=== PATIENT | male | born 1950 | race Caucasian/White ===

== ENCOUNTER 2018-11-08 14:50 | Emergency (ER) | payer MEDICARE, OTHER ==
[2018-11-08] MEDS ORDERED: TORAdol 30 mg Injection IM ONE (15:20)
[2018-11-08 15:21] VITALS: PULSE 71; O2SAT 98
[2018-11-08] MEDS ORDERED: TORAdol 30 mg Injection ONE (15:25)
--- NOTE | 2018-11-08 15:38 | ERPHSYRPT ---
- History of Present Illness Time Seen by Provider: 11/08/18 14:53 Source: patient Exam Limitations: no limitations Patient Subjective Stated Complaint: fell last night on concrete while walking on crutches. states caught hand between concrete and upper left chest. now having pain to upper left chest. pain worse with movement and deep breathing. Triage Nursing Assessment: to room per w/c. skin w/d, color normal, resp easy. tender to touch left upper chest. no deformity noted. Physician History: tripped at home last pm; fell on left anterior side with fist under him; now pain when take deep breath or palpates; no head,neck, abdomen or extremity pain excep a little soreness left shoulder; no prior hx; no hemoptosis; feeling of sob because cant take a deep breath Occurred: yesterday (10 pm) Reason for Fall: tripped, fell from standing pos Injuries/Pain Location: chest (left anterior) Loss of Consciousness: no loss of consciousness Quality: aching, sharpness Severity of Pain-Max: severe Severity of Pain-Current: moderate Modifying Factors: Improves With: immobilization, movement Associated Symptoms (Fall): extremity injury (soreness left shoulder), No abdominal pain, No back pain, No neck pain, No vomiting, No vision changes Allergies/Adverse Reactions: No Known Drug Allergies Allergy (Verified 11/08/18 15:06) Home Medications: Buprenorphine HCl [Belbuca] 75 mcg SL UD 11/08/18 [History] Finasteride 5 mg PO DAILY 11/08/18 [History] Fluoxetine HCl 40 mg PO DAILY 11/08/18 [History] Hydrocodone/Acetaminophen [Hydrocodone-Acetamin 7.5-325] 7.5 mg PO TID 11/08/18 [History] Tamsulosin HCl 0.4 mg PO DAILY 11/08/18 [History] Temazepam 30 mg PO HS 11/08/18 [History] Hx Tetanus, Diphtheria Vaccination/Date Given: No Hx Influenza Vaccination/Date Given: Yes Hx Pneumococcal Vaccination/Date Given: Yes - Review of Systems Constitutional: No Symptoms Eyes: No Symptoms Ears, Nose, & Throat: No Symptoms Respiratory: No Cough, No Cyanosis, No Dyspnea Cardiac: Chest Pain (when breaths), No Edema, No Syncope, No Orthopnea Abdominal/Gastrointestinal: No Abdominal Pain, No Nausea, No Vomiting, No Diarrhea Genitourinary Symptoms: No Dysuria, No Frequency, No Hematuria, No Hesitancy Musculoskeletal: Fall, Injury (left anterior chest) Skin: No Symptoms Neurological: No Symptoms Psychological: No Symptoms Endocrine: No Symptoms Hematologic/Lymphatic: No Symptoms Immunological/Allergic: No Symptoms - Past Medical History Pertinent Past Medical History: Yes Neurological History: Peripheral Neuropathy ENT History: No Pertinent History Cardiac History: No Pertinent History Respiratory History: No Pertinent History Endocrine Medical History: No Pertinent History Musculoskeletal History: Fractures, Arthritis GI Medical History: Hemorrhoids History: No Pertinent History Psycho-Social History: No Pertinent History Male Reproductive Disorders: Prostate Problems Other Medical History: L -SPINE SURGERY X 5 W/ L-SPINE FUSION. PT. HAS HAD R KNEE PN WELL - Past Surgical History Past Surgical History: Yes Neuro Surgical History: No Pertinent History Cardiac: No Pertinent History Respiratory: No Pertinent History Gastrointestinal: No Pertinent History Genitourinary: No Pertinent History Musculoskeletal: Orthopedic Surgery, Joint Replacement Male Surgical History: No Pertinent History Other Surgical History: GASTRIC BYPASS x 2 , shoulder surgery x 2 1991 and 1994 , left knee replaced and rt hip. lower back surgery 1994, left carpel tunnel sugery 1989 R ankle surgery x3 7 1965 and 1968 - Social History Smoking Status: Current every day smoker How long have you smoked: 30 Exposure to second hand smoke: No Alcohol Use: None Drug Use: marijuana Patient Lives Alone: No Significant Family History: no pertinent family hx - Female History Hx Now: No - Nursing Vital Signs Nursing Vital Signs: Initial Vital Signs Temperature 98.2 F 11/08/18 14:59 Pulse Rate 71 11/08/18 14:59 Respiratory Rate 16 11/08/18 14:59 Blood Pressure 145/70 11/08/18 14:59 O2 Sat by Pulse Oximetry 98 11/08/18 14:59 Pain Scale Pain Intensity 7 - [place]t Coma Score Best Eye Response ([place]): (4) open spontaneously Best Verbal Response ([place]): (5) oriented Best Motor Response ([place]): (6) obeys commands [place] Total: 15 - Physical Exam General Appearance: mild distress, alert, thin Head Injury: no evidence of injury, No Graham's Sign, No contusions, No ecchymosis, No tenderness Eye Exam: PERRL/EOMI, eyes nml inspection ENT Exam: airway nml, nml ext.inspection, hearing grossly normal, No dental injury, No hemotympanum, No clotted nasal blood, No malocclusion Neck Exam: supple, trachea midline, full range of motion, normal inspection, No stiff neck, No tenderness, No JVD, No subcutaneous emphysema Respiratory/Chest Exam: chest tenderness (left anterior mid), normal breath sounds, decreased breath sounds (left side), rib tenderness (left anterior and post mid), splinting (left), No respiratory distress, No ecchymosis, No crepitus , No rales, No rhonchi, No wheezing, No subcutaneous emphysema, No palpable fracture, No paradoxical movements Cardiovascular Exam: normal heart sounds, regular rate/rhythm, normal peripheral pulses, No murmur, No edema, No JVD Gastrointestinal Exam: soft, normal bowel sounds, No tenderness, No guarding, No organomegaly Rectal Exam: deferred Back Exam: normal inspection, normal range of motion, No CVA tenderness, No vertebral tenderness, No rash Extremity Exam: normal inspection, normal range of motion, capillary refill <3 sec, pelvis stable, No evidence of injury, No hip tenderness Peripheral Pulses: carotid (R): 4+, carotid (L): 4+, femoral (R): 4+, femoral (L ): 4+, dorsalis-pedis (R): 3+, dorsalis-pedis (L): 3+ Neurologic Exam: alert, oriented x 3, cooperative, cylinder inspector II-XII nml as tested, normal mood/affect, nml station & gait (for patient), sensation nml Skin Exam: normal color, warm, dry, No rash, No cyanosis SpO2 Interpretation: normal SpO2: 98 O2 Delivery: Room Air - Course Nursing assessment & vital signs reviewed: Yes - Radiology Exams Chest X-ray Interpretation: Interpreted by me, No Fracture, No Pneumonia, No Pneumothorax, Nml Heart Size, Other (aging chesy) Left Ribs X-ray Interpretation: Interpreted by me, Non-displaced Fracture (? 9th rib left) Ordered Tests: Active Orders 24 hr Category Date Time Status Cold Application STAT Care 11/08/18 15:22 Active Pulse Oximetry (ED) STAT Care 11/08/18 15:23 Active CHEST 1 VIEW (PORTABLE) Stat Exams 11/08/18 15:45 Taken RIBS UNILATERAL Stat Exams 11/08/18 15:21 Taken Medication Summary Discontinued Medications Generic Name Dose Route Start Last Admin Trade Name Abhijit PRN Reason Stop Dose Admin Ketorolac Tromethamine 15 mg 11/08/18 15:20 11/08/18 15:29 Toradol 30 Mg Injection IM 11/08/18 15:21 15 mg STAT ONE Administration Ketorolac Tromethamine Confirm 11/08/18 15:25 Toradol 30 Mg Injection Administered 11/08/18 15:26 Dose 30 mg .ROUTE .STK-MED ONE - Progress Progress: improved (after neds'), re-examined (after meds and xr) Progress Note: 11/08/18 15:40 will medicate ; get sr and recheck 11/08/18 16:02 recheck post xr; pain meds helped; discussed xr findings; will follow up lmd; instructions given Counseled pt/family regarding: diagnosis, need for follow-up, rad results - Departure Time of Disposition: 16:02 Departure Disposition: Home Clinical Impression: nondisplaced fracture left 9th rib, Fall Condition: Stable Critical Care Time: No Referrals: TITA CANALES [Primary Care Provider] - Instructions: Contusion (DC), Preventing Falls, Rib Fractures in Adults Additional Instructions: rest; ice; continue home meds; may add aleve otc Follow-up with family doctor as directed. Call for appointment. Return if any problems. If you smoke please stop. Call or follow up with your family doctor for assistance if you need it to stop. Please wear your seatbelt when driving. Have a nice day. Thank you for allowing us to participate in your care today. :o) Dr Osei Henriquez
[2018-11-08 16:14] VITALS: BP 136/86
--- NOTE | 2018-11-08 16:16 | XRAY ---
Indication: Left upper rib pain following fall. Comparison: None 2 views of the left ribs demonstrates mild osteopenia, moderate left shoulder degenerative arthropathy, left humeral orthopedic tacks, distal left clavicle resection, left axilla calcified node, moderate multilevel degenerative spondylosis, partially visualized multilevel lumbar fusion/laminectomy, and epigastric suture material. No other bony, articular, or soft tissue abnormalities. Impression: Nonacute left ribs with chronic features.
--- NOTE | 2018-11-08 16:18 | XRAY ---
Indication: Left upper rib pain following fall. Comparison: May 27, 2017. Portable chest again demonstrates normal heart and lungs. Bony thorax intact again with osteopenia, degenerative changes, bilateral shoulder surgery, and partially visualized lumbar surgery. Impression: Stable nonacute chest with chronic findings.
== END 2018-11-08 16:14 | disposition home or self-care (01) ==
LOC: ED 14:50
DX: S22.32XA Fracture of one rib, left side, initial encounter for closed fracture (principal); W18.30XA Fall on same level, unspecified, initial encounter; R07.89 Other chest pain; Z79.899 Other long term (current) drug therapy
CPT/HCPCS: 71045; 71100; 96372; 99284; J1885

== ENCOUNTER 2021-05-14 08:57 | Emergency (ER) | payer MEDICARE ==
[2021-05-14 09:13] VITALS: O2SAT 100
--- NOTE | 2021-05-14 09:57 | ERPHSYRPT ---
- History of Present Illness Time Seen by Provider: 05/14/21 09:15 Source: patient Exam Limitations: no limitations Patient Subjective Stated Complaint: " I've not been able to poop for 4 days and my stomach and rectum really hurt, especially when I try to have a bowel mov ement". Triage Nursing Assessment: Pt presents to ER with spouse, wheeled to ER Room 6 by nursing staff. Pt appears in pain, complains of pain 5/10 scale in lower abdomen diffused and in rectum r/t constipation. Pt is alert and oriented x 3. States is 2 weeks post op from CABG, denies narcotic use. States is on some "meds" but unsure which ones or what dose, states thinks he's on a blood thinner. Respirations are slightly labored, appears anxious. Lung sounds clear and equal throughout. Abdomen is soft but tender upon exam. Active bowel sounds noted. Post OP incisions appear to be healing appropriately. Denies nausea/vomiting, states feels light headed. Pt denies chest pain. States is cold and having chills, no fever noted upon triage. Pt given a warm blanket for c omfort measures. Physician History: Patient is a 71-year-old male 3 weeks postop CABG x 2 vessels presents to our ED with complaints of diffuse abdominal pain extending into his rectum. Patient has not had a bowel movement in 4 days. Patient believes he is constipated. P atient also complains of shortness of breath. He is mildly lightheaded as well. No chest pain. Patient denies narcotic use. However patient is unsure of his home meds. Patient states he is on a blood thinner but does not know which at this time. Shortness of breath is constant. Patient appears anxious on exam. Patient surgical sites are well-healed. Symptoms are mild to moderate in intens ity. No specific worsening or improving factors. Patient denies trauma. No fever. No nausea or vomiting. Patient voices no other complaints concerns at this time. Timing/Duration: day(s) (4 days) Severity: moderate Modifying Factors: Improves With: nothing Associated Symptoms: shortness of breath, No chest pain, No fever, No loss of appetite Allergies/Adverse Reactions: No Known Drug Allergies Allergy (Verified 05/14/21 09:14) Home Medications: Buprenorphine HCl [Belbuca] 75 mcg SL UD 11/08/18 [History] Finasteride 5 mg PO DAILY 11/08/18 [History] Fluoxetine HCl 40 mg PO DAILY 11/08/18 [History] Hydrocodone/Acetaminophen [Hydrocodone-Acetamin 7.5-325] 7.5 mg PO TID 11/08/18 [History] Tamsulosin HCl 0.4 mg PO DAILY 11/08/18 [History] Temazepam 30 mg PO HS 11/08/18 [History] Hx Tetanus, Diphtheria Vaccination/Date Given: Yes Hx Influenza Vaccination/Date Given: Yes Hx Pneumococcal Vaccination/Date Given: Yes Immunizations Up to Date: Yes Travel Risk - International Travel Have you traveled outside of the country in past 3 weeks: No - Coronavirus Screening Are you exhibiting any of the following symptoms?: No Close contact with a COVID-19 positive Pt in past 14-21 Days: No - Vaccine Status Have you recieved a Covid-19 vaccination: Yes L[employer] 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 - Vaccination Dates Date of 2cond Vaccination (if applicable): January 2021 - Review of Systems Constitutional: No Symptoms, No Fever, No Chills Eyes: No Symptoms Ears, Nose, & Throat: No Symptoms Respiratory: No Symptoms, No Cough, No Dyspnea Cardiac: No Symptoms, No Chest Pain, No Edema, No Syncope Abdominal/Gastrointestinal: No Symptoms, No Abdominal Pain, No Nausea, No Vomiting, No Diarrhea Genitourinary Symptoms: No Symptoms, No Dysuria Musculoskeletal: No Symptoms, No Back Pain, No Neck Pain Skin: No Symptoms, No Rash Neurological: No Symptoms, No Dizziness, No Focal Weakness, No Sensory Changes Psychological: No Symptoms Endocrine: No Symptoms Hematologic/Lymphatic: No Symptoms Immunological/Allergic: No Symptoms All Other Systems: Reviewed and Negative - Past Medical History Pertinent Past Medical History: Yes Neurological History: Paralysis, Peripheral Neuropathy ENT History: No Pertinent History Cardiac History: Coronary Artery Disease, High Cholesterol, Hypertension Respiratory History: Other Endocrine Medical History: No Pertinent History Musculoskeletal History: Arthritis, Degenerative Disk Disease GI Medical History: Hemorrhoids History: No Pertinent History Psycho-Social History: No Pertinent History Male Reproductive Disorders: Prostate Problems Other Medical History: O.A TO BILATERAL SHOULERS, KNEES, BACK, NECK - Past Surgical History Past Surgical History: Yes Neuro Surgical History: No Pertinent History Cardiac: CABG Respiratory: No Pertinent History Gastrointestinal: No Pertinent History Genitourinary: No Pertinent History Musculoskeletal: Orthopedic Surgery, Joint Replacement Male Surgical History: No Pertinent History Other Surgical History: GASTRIC BYPASS x 2 , shoulder surgery x 2 1991 and 1994, left knee replaced and rt hip. lower back surgery 1994, left carpel tunnel sugery 1989 R ankle surgery x3 7 1965 and 1968 - Social History Smoking Status: Former smoker How long have you smoked: 30 Exposure to second hand smoke: No Alcohol Use: None Drug Use: marijuana Patient Lives Alone: No Significant Family History: no pertinent family hx - Nursing Vital Signs Nursing Vital Signs: Initial Vital Signs Temperature 98.4 F 05/14/21 09:06 Pulse Rate 118 H 05/14/21 09:06 Respiratory Rate 24 05/14/21 09:06 Blood Pressure 101/79 05/14/21 09:06 O2 Sat by Pulse Oximetry 100 05/14/21 09:06 Pain Scale Pain Intensity 4 - Physical Exam General Appearance: alert, other (Patient sitting up in bed he is conversant mildly tachypneic. No acute distress.) Eye Exam: PERRL/EOMI, eyes nml inspection Ears, Nose, Throat Exam: normal ENT inspection, TMs normal, pharynx normal, moist mucous membranes, other (Mildly dry oral mucous membranes.) Neck Exam: normal inspection, non-tender, supple, full range of motion Respiratory Exam: normal breath sounds, lungs clear, No respiratory distress Cardiovascular Exam: regular rate/rhythm, normal heart sounds, normal peripheral pulses Gastrointestinal/Abdomen Exam: soft, normal bowel sounds, No tenderness, No mass Back Exam: normal inspection, normal range of motion, No CVA tenderness, No vertebral tenderness Extremity Exam: normal inspection, normal range of motion, pelvis stable Neurologic Exam: alert, oriented x 3, cooperative, normal mood/affect, sensation nml, No motor deficits Skin Exam: normal color, warm, dry, No rash Lymphatic Exam: No adenopathy SpO2 Interpretation: normal SpO2: 100 O2 Delivery: Room Air - Course Nursing assessment & vital signs reviewed: Yes EKG Interpreted by Me: RATE (96), Sinus Rhythm, NORMAL AXIS (T wave Inversion inferiorly and laterally.), NORMAL INTERVALS - Radiology Exams Chest X-ray Interpretation: Teleradiologist Report (Portable chest again hyperinflated and clear. Heart not enlarged with interval CABG surgery. Bony thorax intact again with osteopenia and mild degenerative changes, bilateral shoulder surgery.) - CT Exams Chest CT Interpretation: Tele-radiologist Report (Continue negative pulmonary embolus. No acute cardiopulmonary abnormalities. Incidental CABG surgery, scattered fibrosis/scarring and chronic bony findings.) Abdomen/Pelvis CT Interpretation: Tele-radiologist Report (Name artifact from multiple spinal fusion hardware and right hip arthroplasty. Mild rectal impaction. Scattered arteriosclerotic disease with 3.5 x 3.5 cm distal AAA. Incidental chronic bony findings.) Ordered Tests: Active Orders 24 hr Category Date Time Status [employer] Instructor STAT Care 05/14/21 09:20 Active EKG-ER Only STAT Care 05/14/21 09:20 Active Enema STAT Care 05/14/21 13:06 Active IV Insertion STAT Care 05/14/21 09:20 Active Pulse Oximetry (ED) STAT Care 05/14/21 09:20 Active ABDOMEN AND PELVIS W CONTRAST [CT] Stat Exams 05/14/21 09:22 Completed CHEST 1 VIEW (PORTABLE) Stat Exams 05/14/21 09:26 Completed CHEST WITH CONTRAST [CT] Stat Exams 05/14/21 10:11 Completed CBC W DIFF Stat Lab 05/14/21 09:40 Completed CMP Stat Lab 05/14/21 09:40 Completed D-DIMER QUANTITATIVE Stat Lab 05/14/21 09:40 Completed TROPONIN Q3H Lab 05/14/21 09:40 Completed TROPONIN Q3H Lab 05/14/21 12:13 Completed TROPONIN Q3H Lab 05/14/21 15:30 Ordered TROPONIN Q3H Lab 05/14/21 18:30 Ordered TROPONIN Q3H Lab 05/14/21 21:30 Ordered UA W/RFX UR CULTURE Stat Lab 05/14/21 09:20 Ordered Lab/Rad Data: Laboratory Result Diagrams 05/14/21 09:40 05/14/21 09:40 Laboratory Results 05/14/21 05/14/21 05/14/21 Range/Units 12:13 09:40 09:40 WBC (4.0-10.5) K/mm3 RBC (4.1-5.6) M/mm3 Hgb (12.5-18.0) gm/dl Hct (42-50) % MCV (78-100) fl MCH (26-32) pg MCHC (32-36) g/dl RDW (11.5-14.0) % Plt Count (150-450) K/mm3 MPV (7.5-11.0) fl Gran % (36.0-66.0) % Eos # (Auto) (0-0.5) Absolute Lymphs (auto) (1.0-4.6) Absolute Monos (auto) (0.0-1.3) Lymphocytes % (24.0-44.0) % Monocytes % (0.0-12.0) % Eosinophils % (0.00-5.0) % Basophils % (0.0-0.4) % Absolute Granulocytes (1.4-6.9) Basophils # (0-0.4) D-Dimer 3256 H* (215-500) ng/mL Sodium (137-145) mmol/L Potassium (3.5-5.1) mmol/L Chloride (98-107) mmol/L Carbon Dioxide (22-30) mmol/L Anion Gap (5-15) MEQ/L BUN (9-20) mg/dL Creatinine (0.66-1.25) mg/dL Estimated GFR ML/MIN Glucose (74-106) mg/dL Calcium (8.4-10.2) mg/dL Total Bilirubin (0.2-1.3) mg/dL AST (17-59) U/L ALT (0-50) U/L Alkaline Phosphatase (38-126) U/L Troponin I 0.014 0.016 (0.000-0.034) ng/mL Serum Total Protein (6.3-8.2) g/dL Albumin (3.5-5.0) g/dL 05/14/21 05/14/21 Range/Units 09:40 09:40 WBC 7.9 (4.0-10.5) K/mm3 RBC 3.83 L (4.1-5.6) M/mm3 Hgb 12.5 (12.5-18.0) gm/dl Hct 39.2 L (42-50) % MCV 102.3 H (78-100) fl MCH 32.6 H (26-32) pg MCHC 31.9 L (32-36) g/dl RDW 15.4 H (11.5-14.0) % Plt Count 341 (150-450) K/mm3 MPV 10.0 (7.5-11.0) fl Gran % 72.4 H (36.0-66.0) % Eos # (Auto) 0.14 (0-0.5) Absolute Lymphs (auto) 1.29 (1.0-4.6) Absolute Monos (auto) 0.71 (0.0-1.3) Lymphocytes % 16.4 L (24.0-44.0) % Monocytes % 9.0 (0.0-12.0) % Eosinophils % 1.8 (0.00-5.0) % Basophils % 0.4 (0.0-0.4) % Absolute Granulocytes 5.71 (1.4-6.9) Basophils # 0.03 (0-0.4) D-Dimer (215-500) ng/mL Sodium 140 (137-145) mmol/L Potassium 4.4 (3.5-5.1) mmol/L Chloride 105 (98-107) mmol/L Carbon Dioxide 23 (22-30) mmol/L Anion Gap 16.8 H (5-15) MEQ/L BUN 13 (9-20) mg/dL Creatinine 0.93 (0.66-1.25) mg/dL Estimated GFR > 60.0 ML/MIN Glucose 93 (74-106) mg/dL Calcium 9.1 (8.4-10.2) mg/dL Total Bilirubin 0.90 (0.2-1.3) mg/dL AST 32 (17-59) U/L ALT 15 (0-50) U/L Alkaline Phosphatase 140 H (38-126) U/L Troponin I (0.000-0.034) ng/mL Serum Total Protein 6.6 (6.3-8.2) g/dL Albumin 3.7 (3.5-5.0) g/dL - Progress Progress: improved Progress Note: CT scan reveals rectal impaction. Staff disimpacted patient. Patient had a large bowel movement. Patient significantly improved symptomatically. There was an incidental 3.5 x 3.5 cm AAA observed. We contacted Dr. Sánchez of general surgery who feels patient is safe for discharge. Patient will follow up with general surgery as an outpatient to further assess the AAA observed today. Plan of care discussed with patient. Patient agrees to follow-up as discussed. He will follow up with Looking at his primary care doctor within 48 hours. Patient voices no other complaints concerns at this time. 05/14/21 13:21 Discussed with : Karin Will see patient in: office Counseled pt/family regarding: lab results, diagnosis, need for follow-up, rad results - Departure Departure Disposition: Home Clinical Impression: Osteopenia, Arthritis of spine, Fecal impaction in rectum, AAA (abdominal aortic aneurysm), Hip arthritis Condition: Stable Critical Care Time: No Referrals: MICHELLE ESPINAL [Primary Care Provider] - Additional Instructions: Discharge/Care Plan KAM LUU was seen on 05/14/21 in the Emergency Room. The patient was counseled regarding Diagnosis,Lab results, Imaging studies, need for follow up and when to return to the Emergency Room. Prescriptions given: Discharge Note I have spoken with the patient and/or caregivers. I have explained the patient's condition, diagnosis and treatment plan based on the information available to me at this time. I have answered the patient's and/or caregiver's questions and addressed any concerns. The patient and/or caregivers have as good understanding of the patient's diagnosis, condition and treatment plan as can be expected at this point. The vital signs have been stable. The patient's condition is stable and appropriate for discharge from the emergency department. The patient will pursue further outpatient evaluation with the primary care physician or other designated or consulting physician as outlined in the discharge instructions. The patient and/or caregivers are agreeable to this plan of care and follow-up instructions have been explained in detail. The patient and/or caregivers have received these instruction. The patient/and or caregivers are aware that any significant change in condition or worsening of symptoms should prompt an immediate return to this or the closest emergency department or call 911.
[2021-05-14 09:59] LABS: ALBUMIN 3.7 g/dL (3.5-5.0); ALKALINE PHOSPHATASE 140 U/L (38-126); ANION GAP 16.8 MEQ/L (5-15); BLOOD UREA NITROGEN 13 mg/dL (9-20); CHLORIDE 105 mmol/L (98-107); Calcium 9.1 mg/dL (8.4-10.2); Carbon Dioxide 23 mmol/L (22-30); Creatinine 1 0.93 mg/dL (0.66-1.25); EST GLOMERULAR FILTRATION RATE > 60.0 ML/MIN; Glucose 93 mg/dL (74-106); Potassium 4.4 mmol/L (3.5-5.1); SGOT/AST 32 U/L (17-59); SGPT/ALT 15 U/L (0-50); SODIUM 140 mmol/L (137-145); Total Protein 6.6 g/dL (6.3-8.2)
[2021-05-14 10:06] VITALS: BP 131/74
[2021-05-14 10:12] LABS: Absolute Neutrophil Ct (ANC) 5.71 (1.4-6.9); BASOPHIL % 0.4 % (0.0-0.4); Basophil (Absolute #) 0.03 (0-0.4); Eosinophil % 1.8 % (0.00-5.0); Eosinophil (Absolute #) 0.14 (0-0.5); Hematocrit 39.2 % (42-50); Hemoglobin 12.5 gm/dl (12.5-18.0); Lymphocyte (Absolute #) 1.29 (1.0-4.6); Lymphocytes % 16.4 % (24.0-44.0); Mean Cell Volume 102.3 fl (78-100); Mean Corpuscular Hemoglobin 32.6 pg (26-32); Mean Corpuscular Hgb Concent. 31.9 g/dl (32-36); Monocyte (Absolute #) 0.71 (0.0-1.3); Neutrophil % 72.4 % (36.0-66.0); Platelet Count 341 K/mm3 (150-450); Red Blood Count 3.83 M/mm3 (4.1-5.6); Red Cell Distribution Width 15.4 % (11.5-14.0); White Blood Count 7.9 K/mm3 (4.0-10.5)
--- NOTE | 2021-05-14 10:26 | XRAY ---
Indication: Short of breath. Comparison: March 11, 2020. Portable chest again hyperinflated and clear. Heart not enlarged with interval CABG surgery. Bony thorax intact again with osteopenia, mild degenerative changes, and bilateral shoulder surgery. Impression: Nonacute hyperinflated chest with chronic features.
[2021-05-14 11:15] VITALS: PULSE 86
--- NOTE | 2021-05-14 11:57 | XRAY ---
Indication: Elevated d-dimer. Constipation. Multiple contiguous axial images obtained through the chest using 100 cc Isovue 370 contrast and PE protocol. Comparison: September 13, 2013. There is good opacification of the pulmonary arteries to include the lobar and segmental branches. No pulmonary embolus. Heart not enlarged with interval CABG surgery. Aorta minimally arteriosclerotic without aneurysm/dissection. No pathologic mediastinal/hilar lymphadenopathy. Lungs hyperinflated with minimal peripheral fibrosis/scarring bilaterally. No suspicious pulmonary mass, infiltrate, or effusion. Bony thorax intact with again moderate degenerative changes throughout the spine, mild osteopenia, and bilateral shoulder surgery. New sternotomy wires and incompletely visualized thoracolumbar fusion hardware. CT abdomen/pelvis reported separately. Impression: 1. Continue negative pulmonary embolus. No acute cardiopulmonary abnormalities. 2. Incidental CABG surgery, scattered fibrosis/scarring, and chronic bony findings.
--- NOTE | 2021-05-14 12:03 | XRAY ---
Indication: Elevated d-dimer. Constipation. Multiple contiguous axial images obtained through the abdomen and pelvis using 100 cc Isovue 370 contrast. Comparison: None CT chest reported separately. L1-S1 anterior/posterior fusion hardware and right total hip arthroplasty produces extreme beam artifact limiting exam. There has been gastric bypass surgery. Noncontrasted stomach and bowel loops appear grossly nonobstructed with mild fecal debris in the descending/sigmoid colon and mild rectal impaction. Normal appendix. No free fluid/air. Remaining liver, gallbladder, pancreas, spleen, adrenal glands, kidneys, ureters, and bladder are grossly unremarkable. Moderate scattered aortoiliac calcifications with distal AAA measuring 3.5 x 3.5 cm. No pathologic retroperitoneal lymphadenopathy. Remaining osseous structures demonstrates mild osteopenia, mild/moderate degenerative changes throughout the thoracolumbar spine, and mild left hip degenerative arthropathy. No ventral or inguinal hernias. Impression: 1. Beam artifact from multiple spinal fusion hardware and right hip arthroplasty. 2. Mild rectal impaction. 3. Scattered arteriosclerotic disease with 3.5 x 3.5 cm distal AAA. 4. Incidental chronic bony findings.
== END 2021-05-14 13:52 | disposition home or self-care (01) ==
LOC: ED 08:57
DX: M85.80 Other specified disorders of bone density and structure, unspecified site (principal); M47.9 Spondylosis, unspecified; K56.41 Fecal impaction; I71.4 Abdominal aortic aneurysm, without rupture; M13.859 Other specified arthritis, unspecified hip
CPT/HCPCS: 36000; 36415; 71045; 71260; 74177; 80053; 84484; 85025; 85379; 93005; 93041; 94760; 99284

== ENCOUNTER 2021-06-21 19:21 | Emergency (ER) | payer MEDICARE ==
[2021-06-21 20:51] VITALS: BP 141/79; PULSE 61; O2SAT 95
[2021-06-21] MEDS ORDERED: XYLOCAINE 1%/Epi 1:100000 MDV 20 ML ONE (21:06)
[2021-06-21] MEDS ORDERED: XYLOCAINE 1%/Epi 1:100000 MDV 20 ML IJ ONE (21:09)
[2021-06-21] MEDS ORDERED: BACIGUENT PACKET TP ONE (21:25)
[2021-06-21] MEDS ORDERED: BACIGUENT PACKET ONE (21:29)
--- NOTE | 2021-06-21 21:31 | ERPHSYRPT ---
- History of Present Illness Time Seen by Provider: 06/21/21 19:37 Source: patient, EMS Exam Limitations: no limitations Patient Subjective Stated Complaint: pt states he got tripped with his crutches and fell forward. hit his head, denies loss of consciousness. Triage Nursing Assessment: pt alert and oriented, answers questions approp. pt arrive per ambulance and transfers to [facility] with assist of 2. respirations nonlabored. skin warm and dry. abrasion to lt elbow, skin tear to rt forearm. laceration approx 2cm with no acitve bleeding at this time. abrasions and bruising to bilat knees. Physician History: 71 years old male with multiple medical problems including CABG recently and currently on Eliquis, walks with crutches, tripped and fell on the floor and hit his forehead causing laceration and contusion of right knee and skin tear right forearm. Occurred: just prior to arrival Reason for Fall: lost balance, tripped Injuries/Pain Location: face, upper extremity, lower extremity Loss of Consciousness: no loss of consciousness Quality: dullness Severity of Pain-Max: mild Severity of Pain-Current: mild Modifying Factors: Improves With: nothing Associated Symptoms (Fall): extremity injury Allergies/Adverse Reactions: No Known Drug Allergies Allergy (Verified 06/21/21 20:04) Home Medications: Tamsulosin HCl 0.4 mg PO BID 11/08/18 [History] Temazepam 30 mg PO HS 11/08/18 [History] Apixaban [Eliquis] 5 mg PO BID 06/21/21 [History] Duloxetine HCl 60 mg PO DAILY 06/21/21 [History] Duloxetine HCl 30 mg [Cymbalta 30 MG Capsule] 30 mg PO HS 06/21/21 [History] Oxybutynin Chloride [Oxybutynin Chloride ER] 5 mg PO TID 06/21/21 [History] Tramadol HCl 200 mg PO BID 06/21/21 [History] Hx Tetanus, Diphtheria Vaccination/Date Given: Yes Hx Influenza Vaccination/Date Given: Yes Hx Pneumococcal Vaccination/Date Given: Yes Immunizations Up to Date: Yes Travel Risk - International Travel Have you traveled outside of the country in past 3 weeks: No - Coronavirus Screening Are you exhibiting any of the following symptoms?: No Close contact with a COVID-19 positive Pt in past 14-21 Days: No - Vaccine Status Have you recieved a Covid-19 vaccination: Yes 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 - Vaccination Dates Date of 2cond Vaccination (if applicable): january 2021 - Review of Systems Constitutional: No Symptoms Eyes: No Symptoms Ears, Nose, & Throat: No Symptoms Respiratory: No Symptoms Cardiac: No Symptoms Abdominal/Gastrointestinal: No Symptoms Genitourinary Symptoms: No Symptoms Musculoskeletal: Fall, Injury Skin: Skin Lesions Neurological: Headache Psychological: No Symptoms Endocrine: No Symptoms Hematologic/Lymphatic: Easy Bleeding Immunological/Allergic: No Symptoms - Past Medical History Pertinent Past Medical History: Yes Neurological History: Paralysis, Peripheral Neuropathy ENT History: No Pertinent History Cardiac History: Coronary Artery Disease, High Cholesterol, Hypertension Respiratory History: Other Endocrine Medical History: No Pertinent History Musculoskeletal History: Arthritis, Degenerative Disk Disease GI Medical History: Hemorrhoids History: No Pertinent History Psycho-Social History: No Pertinent History Male Reproductive Disorders: Prostate Problems Other Medical History: O.A TO BILATERAL SHOULERS, KNEES, BACK, NECK - Past Surgical History Past Surgical History: Yes Neuro Surgical History: No Pertinent History Cardiac: CABG Respiratory: No Pertinent History Gastrointestinal: No Pertinent History Genitourinary: No Pertinent History Musculoskeletal: Orthopedic Surgery, Joint Replacement Male Surgical History: No Pertinent History Other Surgical History: GASTRIC BYPASS x 2 , shoulder surgery x 2 1991 and 1994, left knee replaced and rt hip. lower back surgery 1994, left carpel tunnel sugery 1989 R ankle surgery x3 7 1965 and 1968 - Social History Smoking Status: Former smoker How long have you smoked: 30 Exposure to second hand smoke: No Alcohol Use: None Drug Use: marijuana Patient Lives Alone: No Significant Family History: no pertinent family hx - Nursing Vital Signs Nursing Vital Signs: Initial Vital Signs Temperature 97.3 F 06/21/21 19:40 Pulse Rate 80 06/21/21 19:40 Respiratory Rate 16 06/21/21 19:40 Blood Pressure 109/68 06/21/21 19:40 O2 Sat by Pulse Oximetry 97 06/21/21 19:40 Pain Scale Pain Intensity 0 - Dodge Coma Score Best Eye Response (Colt): (4) open spontaneously Best Verbal Response (Colt): (5) oriented Best Motor Response (Colt): (6) obeys commands Colt Total: 15 - Physical Exam General Appearance: no apparent distress, alert Head Injury: lacerations (2.5 cm laceration above left eyebrow linear. Not skull deep. Minimal oozing. Swelling around laceration with hematoma. No step in deformity.), swelling, No Graham's Sign, No raccoon eyes Eye Exam: PERRL/EOMI, eyes nml inspection ENT Exam: airway nml, evidence of ENT injury, nml ext.inspection Neck Exam: supple, trachea midline, full range of motion, normal alignment, normal inspection, No focal neuro deficit Respiratory/Chest Exam: normal breath sounds, respiratory distress, No chest tenderness Cardiovascular Exam: normal heart sounds, regular rate/rhythm Gastrointestinal Exam: soft, normal bowel sounds, No tenderness Back Exam: normal inspection Extremity Exam: other (Contusion right knee with no significant bony tenderness and intact range of motion. 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 as tested, normal mood/affect, nml cerebellar function, sensation nml, No motor deficits Skin Exam: normal color SpO2 Interpretation: normal SpO2: 95 O2 Delivery: Room Air Procedures - Laceration/Wound Repair Left Anterior Frontal Time of Procedure: 21:08 Wound Location: Left, forehead Wound Length (cm): 2.5 Wound's Depth, Shape: superficial, into muscle Wound Explored: clean Irrigated: Yes Hibiclens Prep: Yes Anesthesia: 1% lidocaine w/ Epi Volume Anesthetic (ccs): 3 Wound Repaired With: sutures Suture Size/Type: 5-0 Number of Sutures: 5 Layer Closure?: No Sterile Dressing Applied?: Yes Ordered Tests: Active Orders 24 hr Category Date Time Status Prepare for Sutures STAT Care 06/21/21 21:09 Completed Sutures STAT Care 06/21/21 21:09 Completed Wound Care STAT Care 06/21/21 21:09 Completed CERVICAL SPINE WO CONTRAST [CT] Stat Exams 06/21/21 19:37 Taken HEAD WITHOUT CONTRAST [CT] Stat Exams 06/21/21 19:37 Taken Medication Summary Discontinued Medications Generic Name Dose Route Start Last Admin Trade Name Freq PRN Reason Stop Dose Admin Bacitracin Zinc 0.9 gm 06/21/21 21:25 06/21/21 21:30 Baciguent Packet TP 06/21/21 21:26 0.9 gm STAT ONE Administration Bacitracin Zinc Confirm 06/21/21 21:29 Baciguent Packet Administered 06/21/21 21:30 Dose 1 gm .ROUTE .STK-MED ONE Lidocaine/Epinephrine Confirm 06/21/21 21:06 Xylocaine 1%/Epi 1:[id number] Mdv 20 Ml Administered 06/21/21 21:07 Dose 5 ml .ROUTE .STK-MED ONE Lidocaine/Epinephrine 5 ml 06/21/21 21:09 06/21/21 21:12 Xylocaine 1%/Epi 1:[id number] Mdv 20 Ml IJ 06/21/21 21:10 5 ml STAT ONE Administration - Progress Progress: improved Progress Note: 06/21/21 21:[address] head and cervical spine as patient is on Eliquis. They are negative for any acute findings. Laceration is repaired. It was a clear mechanical fall, do not think needs further evaluation and patient has nonfocal neuro exam throughout stay in the ER. At this point I do not think patient needs any work-up and is stable for discharge. Counseled pt/family regarding: diagnosis, need for follow-up, rad results - Departure Departure Disposition: Home Clinical Impression: Multiple contusions Forehead laceration Qualifiers: Encounter type: initial encounter Qualified Code(s): S01.81XA - Laceration without foreign body of other part of head, initial encounter Fall Qualifiers: Encounter type: initial encounter Qualified Code(s): W19.XXXA - Unspecified fall, initial encounter Condition: Stable Critical Care Time: No Referrals: MICHELLE ESPINAL [Primary Care Provider] - Follow Up with PCP/3 days Instructions: Closed Head Injury (DC), Contusion (DC) Additional Instructions: Follow head injury instructions and return to ER for any worsening. Apply ice on the laceration/contusion area. Take Tylenol as needed. Do not take ibuprofen or any other NSAIDs. Follow-up with primary care physician for reevaluation early next week. Suture removal in 5 days.
--- NOTE | 2021-06-21 22:57 | XRAY ---
Indication: Left supraorbital swelling/laceration following fall. Multiple contiguous axial images obtained through the head without contrast. Comparison: None Age-appropriate global atrophy and minimal periventricular degenerative micro-ischemia bilaterally. No acute intracranial hemorrhage, abnormal extra-axial load collection, or mass effect. Fourth ventricle is midline without hydrocephalus. Small left frontal scalp hematoma. Bony calvarium intact. Visualized paranasal sinuses are clear. Impression: Left frontal scalp hematoma. No underlying fracture or acute intracranial abnormalities. Comment: Preliminary interpretation made by [facility]. No critical discrepancy.
--- NOTE | 2021-06-21 22:59 | XRAY ---
Indication: Left supraorbital swelling/laceration following fall. Multiple contiguous axial images obtained through the cervical spine. Sagittal and coronal reformatted images obtained. Comparison: None Axial images demonstrates nonunited posterior arch C1, normal variant. Otherwise no acute fracture or suspicious bony lesions. There is moderate multilevel degenerative endplate spurring throughout the visualized cervical thoracic spine and mild/moderate multilevel bilateral degenerative facet hypertrophy with subsequent C4-C6 canal stenosis. Sagittal and coronal reformatted images demonstrate normal alignment with multilevel disc space loss. No acute compression fracture, similar excision, or jumped facet. Normal appearing craniocervical junction. Visualized noncontrasted soft tissues images mild bilateral carotid calcifications. Lung apices are clear. Impression: 1. Negative acute fracture/subluxation. 2. Multilevel degenerative changes. Comment: Preliminary interpretation made by C. No critical discrepancy.
== END 2021-06-21 21:53 | disposition home or self-care (01) ==
LOC: ED 19:21
DX: S80.02XA Contusion of left knee, initial encounter (principal); S80.01XA Contusion of right knee, initial encounter; W01.0XXA Fall on same level from slipping, tripping and stumbling without subsequent striking against object, initial encounter; Y93.89 Activity, other specified; Y92.89 Other specified places as the place of occurrence of the external cause; Z79.899 Other long term (current) drug therapy; I10 Essential (primary) hypertension; E78.00 Pure hypercholesterolemia, unspecified
CPT/HCPCS: 70450; 72125; 96372; 99284; A9270-GY

== ENCOUNTER 2021-12-13 09:10 | Emergency (ER) | payer MEDICARE ==
[2021-12-13] MEDS ORDERED: Hydromorphone 1 mg/ml Injection IV ONE ×2 (09:12→10:15)
[2021-12-13] MEDS ORDERED: Zofran 4 MG/2 ML VIAL IV ONE (09:12)
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
[2021-12-13] MEDS ORDERED: Hydromorphone 1 mg/ml Injection ONE ×2 (09:16→10:27)
[2021-12-13] MEDS ORDERED: Zofran 4 MG/2 ML VIAL ONE (09:16)
[2021-12-13] MEDS ORDERED: Ativan 2 MG/1 ML VIAL IV ONE (10:17)
--- NOTE | 2021-12-13 10:21 | XRAY ---
Exam: 2 views of the left lower leg from 12/13/2021. Comparison: None. Indication: Fall; complains of pain, most severe 4-5 inches above ankle. Findings: AP and lateral images of the left lower leg were obtained. A portion of a left knee arthroplasty is included on this study. Surgical clips overlie the posterior medial aspect of the left knee. Spurring is seen at the inferior margin of the left patella. There appears to be mild deformity of the distal left fibula shaft centered about 7.5 cm proximal to the left ankle mortise. This has the appearance of an old healed fracture with mild chronic residual deformity. An acute fracture line is not seen. Some vascular calcification is seen within the proximal left calf. The left ankle mortise appears unremarkable. Impression: 1. Old healed fracture deformity of the distal left fibula shaft, as discussed above. 2. No acute fracture of the left tibia or fibula is seen. 3. Status post left knee arthroplasty. 4. Mild atherosclerotic vascular calcification is seen within the proximal left calf.
--- NOTE | 2021-12-13 10:25 | XRAY ---
Exam: 3 views of the left ankle from 12/13/2021. Comparison: None. Indication: Patient fell; complains of pain, most severe 4-5 inches above ankle. Findings: AP, internal oblique, and lateral images of the left ankle were obtained. I again see mild residual deformity of an old healed fracture of the distal left fibula shaft centered about 7.4 cm proximal to the left ankle mortise. An acute fracture or dislocation is not seen. The left ankle mortise is well-preserved and appears uniform. Some bone demineralization is seen. There is mild plantar left calcaneal spurring and a mild posterior calcaneal enthesophyte. The subtalar joint appears unremarkable. Impression: 1. No acute left ankle fracture or dislocation is seen. 2. I again see mild residual deformity from an old healed oblique fracture of the distal left fibula shaft centered about 7.4 cm proximal to the left ankle mortise. 3. Left calcaneal spurring, as discussed above. 4. Bone demineralization.
[2021-12-13] MEDS ORDERED: Ativan 2 MG/1 ML VIAL ONE (10:27)
--- NOTE | 2021-12-13 10:37 | XRAY ---
Exam: 3 views of the left foot from 12/13/2021. Comparison: None. Indication: Fall; complains of pain, most severe 4-5 inches above ankle. Findings: AP, oblique, and lateral radiographs of the left foot were obtained. I see no acute left foot fracture or dislocation. I again see mild plantar and posterior calcaneal spurring. Some mild hypertrophic degenerative change is seen along the dorsal margin of the tarsal-metatarsal junction on the lateral radiograph. The base of the left fifth metatarsal appears intact. I see no callus or periosteal reaction suggest a stress fracture injury of the metatarsals. There is moderate hyperextension of the left second through fifth MTP joints with some concomitant flexion of the PIP joints of the respective second through fifth toes. Impression: 1. No acute left foot fracture or dislocation is seen. 2. Hammertoe deformities of the left second through fifth toes. 3. Calcaneal spurring is seen.
[2021-12-13 11:17] VITALS: BP 152/94
[2021-12-13 11:54] VITALS: PULSE 90; O2SAT 96
== END 2021-12-13 11:40 | disposition home or self-care (01) ==
LOC: ED 09:10
DX: S80.12XA Contusion of left lower leg, initial encounter (principal); V00.811A Fall from moving wheelchair (powered), initial encounter; G82.20 Paraplegia, unspecified; I25.10 Atherosclerotic heart disease of native coronary artery without angina pectoris; E78.5 Hyperlipidemia, unspecified; I10 Essential (primary) hypertension; G62.9 Polyneuropathy, unspecified; Z79.01 Long term (current) use of anticoagulants; Z79.891 Long term (current) use of opiate analgesic; Z79.899 Other long term (current) drug therapy
CPT/HCPCS: 36000; 73590; 73610; 73630; 96374; 96375; 96376; 99284; J1170; J2060; J2405

== ENCOUNTER 2022-09-22 10:55 | Emergency (ER) | payer MEDICARE ==
[2022-09-22 11:19] VITALS: O2SAT 100
[2022-09-22] MEDS ORDERED: Sodium Chloride 0.9% 1000 ML 1,000 ML IV SCH (11:45)
[2022-09-22] MEDS ORDERED: MORPHINE SULFATE 4 MG INJ IV ONE (11:45)
--- NOTE | 2022-09-22 11:50 | XRAY ---
Indication: Abdomen pain and constipation. Multiple contiguous images obtained through the abdomen and pelvis without contrast. Comparison: May 14, 2021 Lung bases demonstrates new right lower lobe interstitial alveolar opacities with tiny effusion. Heart not enlarged. Again extreme beam artifact from multilevel lumbar fusion hardware and right hip arthroplasty. Again gastric bypass surgery. Noncontrasted stomach and bowel loops appear nonobstructed. Mild fecal debris again predominantly in the left hemicolon with moderate rectal impaction. No free fluid/air. Urinary bladder is moderately distended concerning for outlet obstruction versus neurogenic bladder. Remaining liver, gallbladder, pancreas, spleen, adrenal glands, kidneys, ureters, and bladder are unremarkable for noncontrast exam. Again moderate scattered aortoiliac calcifications with minimally enlarging 3.6 x 3.9 cm distal AAA. Osseous structures intact again with osteopenia, degenerative changes throughout the thoracolumbar spine, and mild left hip degenerative arthropathy. Impression: 1. Again extreme beam artifact from multilevel lumbar fusion hardware and right hip arthroplasty. 2. Again moderate rectal impaction. 3. Again scattered arteriosclerotic disease with minimally enlarging distal AAA. 4. New right lower lobe interstitial alveolar opacities with tiny effusion. 5. New distended urinary bladder. Rule out outlet obstruction versus neurogenic bladder.
--- NOTE | 2022-09-22 12:03 | ERPHSYRPT ---
- History of Present Illness Time Seen by Provider: 09/22/22 12:03 Historian: patient Exam Limitations: no limitations Patient Subjective Stated Complaint: constipation x 3 days, abdominal pain since this morning. Triage Nursing Assessment: . Physician History: Patient 72-year-old male presents to emergency department for evaluation of constipation. Patient says he has been constipated for 3 days. Patient has pain in the suprapubic region. No trauma. No fever. No nausea or vomiting. Symptoms are progressive. Symptoms are moderate in intensity. No specific worsening or improving factors. Patient voices no other complaints or concerns at this time. Portions of this note were created with voice recognition technology. There may be grammatical, spelling, punctuation or sound alike errors Timing/Duration: day(s) (3 days) Activities at Onset: none Quality: aching Abdominal Pain Onset Location: periumbilical, suprapubic Pain Radiation: no radiation Severity of Pain-Max: moderate Severity of Pain-Current: mild Modifying Factors: Improves With: defecating Associated Symptoms: denies symptoms Previous symptoms: same symptoms as today Allergies/Adverse Reactions: No Known Drug Allergies Allergy (Verified 04/02/22 15:39) Home Medications: Tamsulosin HCl 0.4 mg PO BID 11/08/18 [History] Temazepam 30 mg PO HS 11/08/18 [History] Apixaban [Eliquis] 5 mg PO BID 06/21/21 [History] Duloxetine HCl 60 mg PO DAILY 06/21/21 [History] Duloxetine HCl 30 mg [Cymbalta 30 MG Capsule] 30 mg PO HS 06/21/21 [History] Oxybutynin Chloride [Oxybutynin Chloride ER] 5 mg PO TID 06/21/21 [History] Tramadol HCl 200 mg PO BID 06/21/21 [History] Hx Tetanus, Diphtheria Vaccination/Date Given: Yes Hx Influenza Vaccination/Date Given: Yes Hx Pneumococcal Vaccination/Date Given: Yes Travel Risk - International Travel Have you traveled outside of the country in past 3 weeks: No - Coronavirus Screening Are you exhibiting any of the following symptoms?: No - Vaccine Status Have you recieved a Covid-19 vaccination: Yes Bearing Inspector: Moderna - Vaccination Dates Date of 2cond Vaccination (if applicable): 2020 - Review of Systems Constitutional: No Symptoms, No Fever, No Chills Eyes: No Symptoms Ears, Nose, & Throat: No Symptoms Respiratory: No Symptoms, No Cough, No Dyspnea Cardiac: No Symptoms, No Chest Pain, No Edema, No Syncope Abdominal/Gastrointestinal: No Symptoms, No Abdominal Pain, No Nausea, No Vomiting, No Diarrhea Genitourinary Symptoms: No Symptoms, No Dysuria Musculoskeletal: No Symptoms, No Back Pain, No Neck Pain Skin: No Symptoms, No Rash Neurological: No Symptoms, No Dizziness, No Focal Weakness, No Sensory Changes Psychological: No Symptoms Endocrine: No Symptoms Hematologic/Lymphatic: No Symptoms Immunological/Allergic: No Symptoms All Other Systems: Reviewed and Negative - Past Medical History Pertinent Past Medical History: Yes Neurological History: Paralysis, Peripheral Neuropathy ENT History: No Pertinent History Cardiac History: Coronary Artery Disease, High Cholesterol, Hypertension Respiratory History: Sleep Apnea, Other Endocrine Medical History: No Pertinent History Musculoskeletal History: Arthritis, Degenerative Disk Disease GI Medical History: Hemorrhoids History: No Pertinent History Psycho-Social History: Anxiety, Depression Male Reproductive Disorders: Prostate Problems Other Medical History: O.A TO BILATERAL SHOULERS, KNEES, BACK, NECK - Past Surgical History Past Surgical History: Yes Neuro Surgical History: No Pertinent History Cardiac: CABG Respiratory: No Pertinent History Gastrointestinal: No Pertinent History Genitourinary: No Pertinent History Musculoskeletal: Orthopedic Surgery, Joint Replacement Male Surgical History: No Pertinent History Other Surgical History: GASTRIC BYPASS x 2 , shoulder surgery x 2 1991 and 1994, left knee replaced and rt hip. lower back surgery 1994, left carpel tunnel sugery 1989 R ankle surgery x3 1957 1965 and 1968 - Social History Smoking Status: Former smoker How long have you smoked: 30 Exposure to second hand smoke: No Alcohol Use: None Drug Use: none Patient Lives Alone: No Significant Family History: no pertinent family hx - Nursing Vital Signs Nursing Vital Signs: Initial Vital Signs Temperature 98.0 F 09/22/22 11:08 Pulse Rate 105 H 09/22/22 11:08 Respiratory Rate 18 09/22/22 11:08 Blood Pressure 149/94 09/22/22 11:08 O2 Sat by Pulse Oximetry 100 09/22/22 11:08 Pain Scale Pain Intensity 7 - Physical Exam General Appearance: no apparent distress, alert Eye Exam: PERRL/EOMI, eyes nml inspection Ears, Nose, Throat Exam: normal ENT inspection, pharynx normal, moist mucous membranes Neck Exam: normal inspection, non-tender, supple, full range of motion Respiratory Exam: normal breath sounds, lungs clear, No respiratory distress Cardiovascular Exam: regular rate/rhythm, normal heart sounds, normal peripheral pulses Gastrointestinal/Abdomen Exam: soft, No tenderness, No mass Male Genitalia Exam: normal genitalia Rectal Exam: deferred Back Exam: normal inspection, normal range of motion, No CVA tenderness, No vertebral tenderness Extremity Exam: normal inspection, normal range of motion, pelvis stable Neurologic Exam: alert, oriented x 3, cooperative, normal mood/affect, nml cerebellar function, sensation nml, No motor deficits Skin Exam: normal color, warm, dry SpO2 Interpretation: normal SpO2: 100 O2 Delivery: Room Air - Course Nursing assessment & vital signs reviewed: Yes - CT Exams Abdomen/Pelvis CT Interpretation: Tele-radiologist Report Ordered Tests: Active Orders 24 hr Category Date Time Status IV Insertion STAT Care 09/22/22 11:45 Active ABDOMEN AND PELVIS W/0 CONTRAS [CT] Stat Exams 09/22/22 11:05 Completed CBC W DIFF Stat Lab 09/22/22 12:06 Completed CMP Stat Lab 09/22/22 12:06 Completed CULTURE,URINE Stat Lab 09/22/22 12:16 Received LIPASE Stat Lab 09/22/22 12:06 Completed TROPONIN Q4H Lab 09/22/22 12:06 Completed TROPONIN Q4H Lab 09/22/22 16:00 Ordered TROPONIN Q4H Lab 09/22/22 20:00 Ordered UA W/RFX CULTURE Stat Lab 09/22/22 12:16 Completed Medication Summary Generic Name Dose Route Start Last Admin Trade Name Freq PRN Reason Stop Dose Admin Sodium Chloride 1,000 mls @ 100 mls/hr 09/22/22 11:45 Sodium Chloride 0.9% 1000 Ml IV 10/22/22 11:44 .Q10H MITA Ceftriaxone Sodium/Dextrose 1 g in 50 mls @ 100 mls/hr 09/23/22 10:00 09/22/22 13:30 Rocephin 1 Gm-D5w 50 Ml Bag IV 09/26/22 09:59 100 mls/hr Q24H10 MITA 100 mls/hr Administration Discontinued Medications Generic Name Dose Route Start Last Admin Trade Name Freq PRN Reason Stop Dose Admin Ceftriaxone Sodium/Dextrose Confirm 09/22/22 13:29 Rocephin 1 Gm-D5w 50 Ml Bag Administered 09/22/22 13:30 Dose 1 g in 50 mls @ ud IV .STK-MED ONE Morphine Sulfate 4 mg 09/22/22 11:45 09/22/22 13:39 Morphine Sulfate 4 Mg/Ml Injection IV 09/22/22 11:46 Not Given STAT ONE Lab/Rad Data: Laboratory Result Diagrams 09/22/22 12:06 09/22/22 12:06 Laboratory Results 09/22/22 09/22/22 09/22/22 Range/Units 12:16 12:06 12:06 WBC (4.0-10.5) x10^3/uL RBC (4.1-5.6) x10^6/uL Hgb (12.5-18.0) g/dL Hct (42-50) % MCV (78-100) fL MCH (26-32) pg MCHC (32-36) g/dL RDW (11.5-14.0) % Plt Count (150-450) x10^3/uL MPV (7.5-11.0) fL Gran % (36.0-66.0) % Immature Gran % (Auto) (0.00-0.4) % Nucleat RBC Rel Count (0.00-0.1) % Eos # (Auto) (0-0.5) x10^3/uL Immature Gran # (Auto) (0.00-0.03) x10^3u/L Absolute Lymphs (auto) (1.0-4.6) x10^3/uL Absolute Monos (auto) (0.0-1.3) x10^3/uL Absolute Nucleated RBC (0.00-0.01) x10^3u/L Lymphocytes % (24.0-44.0) % Monocytes % (0.0-12.0) % Eosinophils % (0.00-5.0) % Basophils % (0.0-0.4) % Absolute Granulocytes (1.4-6.9) x10^3/uL Basophils # (0-0.4) x10^3/uL Sodium 138 (137-145) mmol/L Potassium 4.0 (3.5-5.1) mmol/L Chloride 108 H (98-107) mmol/L Carbon Dioxide 24 (22-30) mmol/L Anion Gap 10.0 (5-15) MEQ/L BUN 14 (9-20) mg/dL Creatinine 0.66 (0.66-1.25) mg/dL Estimated GFR > 60.0 ML/MIN Glucose 107 H (74-106) mg/dL Calcium 8.7 (8.4-10.2) mg/dL Total Bilirubin 0.80 (0.2-1.3) mg/dL AST 31 (17-59) U/L ALT 24 (0-50) U/L Alkaline Phosphatase 119 (38-126) U/L Troponin I 0.017 (0.000-0.034) ng/mL Serum Total Protein 6.9 (6.3-8.2) g/dL Albumin 3.6 (3.5-5.0) g/dL Lipase 59 (23-300) U/L Urinalys Dipstick Clnc MAIN LAB Urine Color RED A (YELLOW) Urine Appearance CLOUDY A (CLEAR) Urine pH 6.5 (5-6) Ur Specific [place] 1.025 (1.005-1.025) POC Urine Protein Conf 100 A (Negative) Urine Ketones NEGATIVE (NEGATIVE) Urine Nitrite NEGATIVE (NEGATIVE) Urine Bilirubin NEGATIVE (NEGATIVE) Urine Urobilinogen 4 A (0-1) mg/dL Urine Leukocytes SMALL A (NEGATIVE) Urine WBC (Auto) >100 A (0-5) /HPF Urine RBC (Auto) >101 A (0-2) /HPF U Epithel Cells (Auto) FEW (FEW) /HPF Urine Bacteria (Auto) RARE (NEGATIVE) /HPF Urine RBC LARGE A (0-5) Mitchell/ul Urine Mucus (Auto) SLIGHT A (NEGATIVE) /HPF Ur Culture Indicated? YES Urine Glucose NEGATIVE (NEGATIVE) mg/dL 09/22/22 Range/Units 12:06 WBC 10.6 H (4.0-10.5) x10^3/uL RBC 3.12 L (4.1-5.6) x10^6/uL Hgb 10.4 L (12.5-18.0) g/dL Hct 32.4 L (42-50) % MCV 103.8 H (78-100) fL MCH 33.3 H (26-32) pg MCHC 32.1 (32-36) g/dL RDW 14.5 H (11.5-14.0) % Plt Count 354 (150-450) x10^3/uL MPV 9.1 (7.5-11.0) fL Gran % 84.2 H (36.0-66.0) % Immature Gran % (Auto) 2.1 H (0.00-0.4) % Nucleat RBC Rel Count 0.0 (0.00-0.1) % Eos # (Auto) 0.03 (0-0.5) x10^3/uL Immature Gran # (Auto) 0.22 H (0.00-0.03) x10^3u/L Absolute Lymphs (auto) 0.76 L (1.0-4.6) x10^3/uL Absolute Monos (auto) 0.59 (0.0-1.3) x10^3/uL Absolute Nucleated RBC 0.00 (0.00-0.01) x10^3u/L Lymphocytes % 7.2 L (24.0-44.0) % Monocytes % 5.6 (0.0-12.0) % Eosinophils % 0.3 (0.00-5.0) % Basophils % 0.6 (0.0-0.4) % Absolute Granulocytes 8.94 H (1.4-6.9) x10^3/uL Basophils # 0.06 (0-0.4) x10^3/uL Sodium (137-145) mmol/L Potassium (3.5-5.1) mmol/L Chloride (98-107) mmol/L Carbon Dioxide (22-30) mmol/L Anion Gap (5-15) MEQ/L BUN (9-20) mg/dL Creatinine (0.66-1.25) mg/dL Estimated GFR ML/MIN Glucose (74-106) mg/dL Calcium (8.4-10.2) mg/dL Total Bilirubin (0.2-1.3) mg/dL AST (17-59) U/L ALT (0-50) U/L Alkaline Phosphatase (38-126) U/L Troponin I (0.000-0.034) ng/mL Serum Total Protein (6.3-8.2) g/dL Albumin (3.5-5.0) g/dL Lipase (23-300) U/L Urinalys Dipstick Clnc Urine Color (YELLOW) Urine Appearance (CLEAR) Urine pH (5-6) Ur Specific [place] (1.005-1.025) POC Urine Protein Conf (Negative) Urine Ketones (NEGATIVE) Urine Nitrite (NEGATIVE) Urine Bilirubin (NEGATIVE) Urine Urobilinogen (0-1) mg/dL Urine Leukocytes (NEGATIVE) Urine WBC (Auto) (0-5) /HPF Urine RBC (Auto) (0-2) /HPF U Epithel Cells (Auto) (FEW) /HPF Urine Bacteria (Auto) (NEGATIVE) /HPF Urine RBC (0-5) Mitchell/ul Urine Mucus (Auto) (NEGATIVE) /HPF Ur Culture Indicated? Urine Glucose (NEGATIVE) mg/dL - Progress Progress: improved Progress Note: Patient reassessed. He feels much better. Patient received an enema and had a bowel movement. There is fairly significant pain. Patient also had a urinary outlet obstruction. Cavazos catheter placed. Patient was observed to have a urinary tract infection. Patient received Rocephin in our ED. Patient has an existing AAA that he is aware of. Patient advised to follow-up with his vascul ar surgeon within 48 hours for evaluation. Portions of this note were created with voice recognition technology. There may be grammatical, spelling, punctuation or sound alike errors 09/22/22 13:50 Patient made aware of his AAA. He states he has an appointment scheduled with Dr. Espinal tomorrow. We will call Dr. Angulo's office and him of patient's AAA and that this will likely require further evaluation as today's imaging study suggest that there may have been an interval change in size of the AAA. 09/22/22 13:55 We spoke to nurse Bel and advised her of the minimally enlarged AAA, fecal impaction, urinary outlet obstruction with a urinary tract infection. She will make a notation in the chart and make sure that Dr. Espinal reviews these findings on today's CAT scan and clinic visit tomorrow. 09/22/22 13:59 Counseled pt/family regarding: lab results, diagnosis, need for follow-up, rad results - Departure Departure Disposition: Home Clinical Impression: Interstitial alveolar opacities right, Mild fecal debris, Moderate rectal impaction, Urinary outlet obstruction, AAA (abdominal aortic aneurysm), UTI (urinary tract infection), Megaloblastic anemia Condition: Stable Critical Care Time: No Referrals: MICHELLE ESPINAL [Primary Care Provider] - Follow up/PCP as directed Instructions: How to Care for Your Cavazos Catheter, Urinary Tract Infection, Adult ED Additional Instructions: Discharge/Care Plan KAM LUU was seen on 09/22/22 in the Emergency Room. The patient was counseled regarding Diagnosis,Lab results, Imaging studies, need for follow up and when to return to the Emergency Room. Prescriptions given: Discharge Note I have spoken with the patient and/or caregivers. I have explained the patient's condition, diagnosis and treatment plan based on the information available to me at this time. I have answered the patient's and/or caregiver's questions and addressed any concerns. The patient and/or caregivers have as good understanding of the patient's diagnosis, condition and treatment plan as can be expected at this point. The vital signs have been stable. The patient's condition is stable and appropriate for discharge from the emergency department. The patient will pursue further outpatient evaluation with the primary care physician or other designated or consulting physician as outlined in the disch arge instructions. The patient and/or caregivers are agreeable to this plan of care and follow-up instructions have been explained in detail. The patient and/or caregivers have received these instruction. The patient/and or caregivers are aware that any significant change in condition or worsening of symptoms should prompt an immediate return to this or the closest emergency department or call 911. Prescriptions: Ciprofloxacin [Cipro 500 MG] 500 mg PO BID 7 Days #14 tablet
[2022-09-22 12:07] LABS: Absolute Neutrophil Ct (ANC) 8.94 x10^3/uL (1.4-6.9); Basophil (Absolute #) 0.06 x10^3/uL (0-0.4); Eosinophil % 0.3 % (0.00-5.0); Eosinophil (Absolute #) 0.03 x10^3/uL (0-0.5); Hematocrit 32.4 % (42-50); Hemoglobin 10.4 g/dL (12.5-18.0); Lymphocyte (Absolute #) 0.76 x10^3/uL (1.0-4.6); Lymphocytes % 7.2 % (24.0-44.0); Mean Cell Volume 103.8 fL (78-100); Mean Corpuscular Hemoglobin 33.3 pg (26-32); Mean Corpuscular Hgb Concent. 32.1 g/dL (32-36); Mean Platelet Volume 9.1 fL (7.5-11.0); Monocyte (Absolute #) 0.59 x10^3/uL (0.0-1.3); Monocytes % 5.6 % (0.0-12.0); Neutrophil % 84.2 % (36.0-66.0); Platelet Count 354 x10^3/uL (150-450); Red Blood Count 3.12 x10^6/uL (4.1-5.6); Red Cell Distribution Width 14.5 % (11.5-14.0); White Blood Count 10.6 x10^3/uL (4.0-10.5)
[2022-09-22 12:20] LABS: ALBUMIN 3.6 g/dL (3.5-5.0); ALKALINE PHOSPHATASE 119 U/L (38-126); BLOOD UREA NITROGEN 14 mg/dL (9-20); CHLORIDE 108 mmol/L (98-107); Calcium 8.7 mg/dL (8.4-10.2); Carbon Dioxide 24 mmol/L (22-30); Creatinine 1 0.66 mg/dL (0.66-1.25); EST GLOMERULAR FILTRATION RATE > 60.0 ML/MIN; Glucose 107 mg/dL (74-106); LIPASE 59 U/L (23-300); SGOT/AST 31 U/L (17-59); SGPT/ALT 24 U/L (0-50); SODIUM 138 mmol/L (137-145); Total Protein 6.9 g/dL (6.3-8.2)
[2022-09-22 13:17] LABS: Bacteria RARE /HPF (NEGATIVE); Mucus SLIGHT /HPF (NEGATIVE); WBC >100 /HPF (0-5)
[2022-09-22 13:19] LABS: Appearance CLOUDY (CLEAR); Bilirubin NEGATIVE (NEGATIVE); Dipstick done @ ? MAIN LAB; Glucose NEGATIVE (NEGATIVE); Ketones NEGATIVE (NEGATIVE); Nitrite NEGATIVE (NEGATIVE); Ph 6.5 (5-6); Protein,Urine Dip 100 (Negative); RBC LARGE Ery/ul (0-5); Specific Gravity 1.025 (1.005-1.025); Urobilinogen 4 mg/dL (0-1)
[2022-09-22 13:20] LABS: Epithelial Cells FEW /HPF (FEW); RBC >101 /HPF (0-2); Urine Cultured Indicated? YES
[2022-09-22] MEDS ORDERED: ROCEPHIN 1 Gm-D5w 50 ml Bag** 1 G/50 ML IVPB IV ONE (13:29)
[2022-09-22 14:13] VITALS: BP 136/80; PULSE 76
[2022-09-23] MEDS ORDERED: ROCEPHIN 1 Gm-D5w 50 ml Bag** 1 G/50 ML IVPB IV SCH (10:00)
== END 2022-09-22 14:13 | disposition home or self-care (01) ==
LOC: ED 10:55
DX: N39.0 Urinary tract infection, site not specified (principal); N13.9 Obstructive and reflux uropathy, unspecified; R91.8 Other nonspecific abnormal finding of lung field; K56.49 Other impaction of intestine; I71.40 Abdominal aortic aneurysm, without rupture, unspecified; D53.1 Other megaloblastic anemias, not elsewhere classified; K59.00 Constipation, unspecified; E78.5 Hyperlipidemia, unspecified; I10 Essential (primary) hypertension; R10.2 Pelvic and perineal pain; Z79.01 Long term (current) use of anticoagulants; Z79.899 Other long term (current) drug therapy
CPT/HCPCS: 36000; 36415; 51702; 74176; 80053; 81015; 83690; 84484; 85025; 87077; 87086; 87186; 96365; 99284; J0696

== ENCOUNTER 2022-09-27 09:24 | Emergency (ER) | payer MEDICARE ==
[2022-09-27 09:28] VITALS: BP 104/78; PULSE 75; O2SAT 95
[2022-09-27] MEDS ORDERED: NORCO 5/325 MG PO ONE (10:14)
[2022-09-27] MEDS ORDERED: NORCO 5/325 MG ONE (10:17)
--- NOTE | 2022-09-27 10:17 | ERPHSYRPT ---
- History of Present Illness Time Seen by Provider: 09/27/22 09:26 Source: patient Exam Limitations: no limitations Patient Subjective Stated Complaint: pt reports when he woke this morning his catheter had come apart from his leg bag, pt presents to have his catheter repl aced and at this time he complains of right leg pain from a fall a couple weeks ago, pt states he has an indwelling catheter from a recent bladder infection. Triage Nursing Assessment: pt is aox3, pupils perrl, afebrile, resps easy and non labored, cap refill < 3 seconds, radial pulses strong and equal, pt abd soft non tender, pt ROM sensation intact. catheter still in place, but it is not connected to a drainage bag. pt has taped the end of his catheter with tape and gauze, foul smelling coming from dressing. blood present on dressing as well. Physician History: 72 years old male with history of chronic pain, on Eliquis with recent UTI, hemorrhagic cystitis on antibiotics, was evaluated by urology and Cavazos catheter was placed then. This morning patient woke up and it was not attached to the leg bag and came in here for Cavazos replacement. Does report having dark urine but it is gradually getting better than before. No abdominal or suprapubic pain. No vomiting fever or chills reported. No flank pain. Does have difficulty ambulation due to fall he took more than 2 weeks ago with some abrasion to right leg. Patient does not want any work-up done, imaging and is here only for catheter placement. Allergies/Adverse Reactions: No Known Drug Allergies Allergy (Verified 09/27/22 09:38) Home Medications: Tamsulosin HCl 0.4 mg PO BID 11/08/18 [History] Temazepam 30 mg PO HS 11/08/18 [History] Apixaban [Eliquis] 5 mg PO BID 06/21/21 [History] Duloxetine HCl 60 mg PO DAILY 06/21/21 [History] Duloxetine HCl 30 mg [Cymbalta 30 MG Capsule] 30 mg PO HS 06/21/21 [History] Oxybutynin Chloride [Oxybutynin Chloride ER] 5 mg PO TID 06/21/21 [History] Tramadol HCl 200 mg PO BID 06/21/21 [History] Hx Tetanus, Diphtheria Vaccination/Date Given: Yes Hx Influenza Vaccination/Date Given: Yes Hx Pneumococcal Vaccination/Date Given: Yes Immunizations Up to Date: Yes Travel Risk - International Travel Have you traveled outside of the country in past 3 weeks: No - Coronavirus Screening Are you exhibiting any of the following symptoms?: No Close contact with a COVID-19 positive Pt in past 14-21 Days: No - Vaccine Status Have you recieved a Covid-19 vaccination: Yes Bottle Gauger: Moderna - Vaccination Dates Date of 2cond Vaccination (if applicable): UNK - Past Medical History Pertinent Past Medical History: Yes Neurological History: Paralysis, Peripheral Neuropathy ENT History: No Pertinent History Cardiac History: Coronary Artery Disease, High Cholesterol, Hypertension Respiratory History: Sleep Apnea, Other Endocrine Medical History: No Pertinent History Musculoskeletal History: Arthritis, Degenerative Disk Disease GI Medical History: Hemorrhoids History: No Pertinent History Psycho-Social History: Anxiety, Depression Male Reproductive Disorders: Prostate Problems Other Medical History: O.A TO BILATERAL SHOULERS, KNEES, BACK, NECK - Past Surgical History Past Surgical History: Yes Neuro Surgical History: No Pertinent History Cardiac: CABG Respiratory: No Pertinent History Gastrointestinal: No Pertinent History Genitourinary: No Pertinent History Musculoskeletal: Orthopedic Surgery, Joint Replacement Male Surgical History: No Pertinent History Other Surgical History: GASTRIC BYPASS x 2 , shoulder surgery x 2 1991 and 1994, left knee replaced and rt hip. lower back surgery 1994, left carpel tunnel sugery 1989 R ankle surgery x3 7 1965 and 1968 - Social History Smoking Status: Former smoker How long have you smoked: 30 Exposure to second hand smoke: No Alcohol Use: None Drug Use: none Patient Lives Alone: No Significant Family History: no pertinent family hx - Review of Systems Constitutional: No Symptoms Ears, Nose, & Throat: No Symptoms Respiratory: No Symptoms Cardiac: No Symptoms Abdominal/Gastrointestinal: No Symptoms Genitourinary Symptoms: Hematuria Musculoskeletal: Arthralgias Neurological: No Symptoms Endocrine: No Symptoms - Nursing Vital Signs Nursing Vital Signs: Initial Vital Signs Temperature 98 F 09/27/22 09:25 Pulse Rate 75 09/27/22 09:25 Respiratory Rate 20 09/27/22 09:25 Blood Pressure 104/78 09/27/22 09:25 O2 Sat by Pulse Oximetry 95 09/27/22 09:25 Pain Scale Pain Intensity 8 - Physical Exam General Appearance: no apparent distress, alert Eye Exam: PERRL/EOMI Ears, Nose, Throat Exam: normal ENT inspection Neck Exam: normal inspection, full range of motion Respiratory Exam: normal breath sounds, lungs clear Cardiovascular Exam: regular rate/rhythm, normal heart sounds Gastrointestinal/Abdomen Exam: soft, normal bowel sounds, No tenderness Male Genital Exam: normal genitalia, No epididymal tenderness, No inguinal tenderness, No scrotum tenderness (R), No scrotum tenderness (L) Back Exam: normal inspection Extremity Exam: other (Abrasion above right knee. No obvious swelling. Range of motion intact.) Neurologic Exam: alert, oriented x 3, cooperative Skin Exam: normal color SpO2 Interpretation: normal SpO2: 95 O2 Delivery: Room Air Ordered Tests: Active Orders 24 hr Category Date Time Status UA W/RFX CULTURE Stat Lab 09/27/22 Results Medication Summary Discontinued Medications Generic Name Dose Route Start Last Admin Trade Name Abhijit PRN Reason Stop Dose Admin Hydrocodone Bitart/Acetaminophen 2 tab 09/27/22 10:14 09/27/22 10:18 Hydrocodone/Apap 5/325 1 Tab Tablet PO 09/27/22 10:15 2 tab SENT HOME W/ PATIENT ONE Administration Hydrocodone Bitart/Acetaminophen Confirm 09/27/22 10:17 Hydrocodone/Apap 5/325 1 Tab Tablet Administered 09/27/22 10:18 Dose 2 tab .ROUTE .STK-MED ONE Lab/Rad Data: Laboratory Results 09/27/22 Range/Units Unknown Urinalys Dipstick Clnc MAIN LAB Urine Color RED A (YELLOW) Urine Appearance CLOUDY A (CLEAR) Urine pH 6.0 (5-6) Ur Specific [place] 1.025 (1.005-1.025) POC Urine Protein Conf >=300 A (Negative) Urine Ketones SMALL-15 A (NEGATIVE) Urine Nitrite POSITIVE A (NEGATIVE) Urine Bilirubin MODERATE A (NEGATIVE) Urine Urobilinogen 4 A (0-1) mg/dL Urine Leukocytes TRACE A (NEGATIVE) Urine WBC (Auto) Pending Urine RBC (Auto) Pending U Epithel Cells (Auto) Pending Urine Bacteria (Auto) Pending Urine RBC LARGE A (0-5) Mitchell/ul Ur Culture Indicated? Pending Urine Glucose NEGATIVE (NEGATIVE) mg/dL - Progress Progress: improved, re-examined Progress Note: 09/27/22 10:16 Catheter is replaced with a coud with leg bag. Offered work-up including imaging of right lower extremity which she refused. Patient wants a dose of pain medication because he has not taken his in wants to go home to have some rest. Recommended outpatient follow-up with primary care and urology for reevaluation. Discussed signs symptoms of worsening needing return to ER which he seems understanding. Counseled pt/family regarding: diagnosis, need for follow-up - Departure Departure Disposition: Home Clinical Impression: Cavazos catheter problem Condition: Stable Critical Care Time: No Referrals: MICHELLE ESPINAL [Primary Care Provider] - Follow up/PCP as directed (In 2 days for reevaluation) Instructions: How to Care for Your Cavazos Catheter, Male, Urinary Retention (DC) Additional Instructions: Continue with pain medication which you have at home. Follow-up with primary care and urology for reevaluation of urinary complaints/blood in urine. Continue with antibiotics. Use cane/walker for ambulation to avoid a fall. Follow-up with PCP for reevaluation and may need imaging of right lower extremity.
[2022-09-27 10:29] LABS: Appearance CLOUDY (CLEAR); Bilirubin MODERATE (NEGATIVE); Dipstick done @ ? MAIN LAB; Glucose NEGATIVE (NEGATIVE); Ketones SMALL-15 (NEGATIVE); Nitrite POSITIVE (NEGATIVE); Protein,Urine Dip >=300 (Negative); RBC LARGE Ery/ul (0-5); Specific Gravity 1.025 (1.005-1.025); Urobilinogen 4 mg/dL (0-1)
[2022-09-27 10:36] LABS: Bacteria MODERATE /HPF (NEGATIVE); Mucus SLIGHT /HPF (NEGATIVE)
[2022-09-27 10:37] LABS: RBC >101 /HPF (0-2); Urine Cultured Indicated? YES
== END 2022-09-27 10:41 | disposition home or self-care (01) ==
LOC: ED 09:24
DX: T83.028A Displacement of other urinary catheter, initial encounter (principal); E78.5 Hyperlipidemia, unspecified; I10 Essential (primary) hypertension; Z79.01 Long term (current) use of anticoagulants; Z79.899 Other long term (current) drug therapy
CPT/HCPCS: 51702; 81015; 87077; 87086; 87186; 99283; A9270-GY

== ENCOUNTER 2022-10-06 18:51 | Emergency (ER) | payer MEDICARE ==
[2022-10-06 19:03] VITALS: O2SAT 98
[2022-10-06] MEDS ORDERED: XYLOCAINE 2% Uro-Jet TOP ONE (20:28)
[2022-10-06] MEDS ORDERED: XYLOCAINE 2% Uro-Jet ONE (20:28)
[2022-10-06 20:48] LABS: Appearance CLOUDY (CLEAR); Bilirubin NEGATIVE (NEGATIVE); Glucose 100 mg/dL (NEGATIVE); Ketones NEGATIVE (NEGATIVE); Ph 8.5 (5-6); RBC LARGE Ery/ul (0-5); Specific Gravity 1.025 (1.005-1.025)
[2022-10-06 20:49] LABS: Dipstick done @ ? MAIN LAB; Nitrite NEGATIVE (NEGATIVE); Protein,Urine Dip >=300 (Negative); Urobilinogen >=8.0 mg/dL (0-1)
--- NOTE | 2022-10-06 20:49 | ERPHSYRPT ---
- History of Present Illness Time Seen by Provider: 10/06/22 19:20 Source: patient Exam Limitations: no limitations Patient Subjective Stated Complaint: Pt states "I am having catheter issues it has not drained since 2 pm" Triage Nursing Assessment: Pt presented alert and oriented X 3, skin pwd. PT ambulates with a slow gait, pt limps, has bylateral knee surgeries. Physician History: Patient is a 72-year-old male presents to our ED for evaluation of "catheter issues". Patient states he is not passing urine into the catheter as effectively as he should. Patient experiencing some discomfort in the tip of his penis. No trauma. No fever. No back pain. Symptoms are mild to moderate in intensity. No specific worsening improving factors. Patient's urologist is Dr. Holman. at bedside. They voiced no other complaints or concerns at this time. Portions of this note were created with voice recognition technology. There may be grammatical, spelling, punctuation or sound alike errors Timing/Duration: today Severity: moderate Modifying Factors: Improves With: nothing Associated Symptoms: denies symptoms Allergies/Adverse Reactions: No Known Drug Allergies Allergy (Verified 09/27/22 09:38) Home Medications: Tamsulosin HCl 0.4 mg PO BID 11/08/18 [History] Temazepam 30 mg PO HS 11/08/18 [History] Apixaban [Eliquis] 5 mg PO BID 06/21/21 [History] Duloxetine HCl 60 mg PO DAILY 06/21/21 [History] Duloxetine HCl 30 mg [Cymbalta 30 MG Capsule] 30 mg PO HS 06/21/21 [History] Oxybutynin Chloride [Oxybutynin Chloride ER] 5 mg PO TID 06/21/21 [History] Tramadol HCl 200 mg PO BID 06/21/21 [History] Hx Tetanus, Diphtheria Vaccination/Date Given: Yes Hx Influenza Vaccination/Date Given: Yes Hx Pneumococcal Vaccination/Date Given: Yes Immunizations Up to Date: Yes Travel Risk - International Travel Have you traveled outside of the country in past 3 weeks: No - Coronavirus Screening Are you exhibiting any of the following symptoms?: No Close contact with a COVID-19 positive Pt in past 14-21 Days: No - Vaccine Status Have you recieved a Covid-19 vaccination: Yes Behavioral Science Chair: Moderna - Vaccination Dates Date of 2cond Vaccination (if applicable): UNK - Review of Systems Constitutional: No Symptoms, No Fever, No Chills Eyes: No Symptoms Ears, Nose, & Throat: No Symptoms Respiratory: No Symptoms, No Cough, No Dyspnea Cardiac: No Symptoms, No Chest Pain, No Edema, No Syncope Abdominal/Gastrointestinal: No Symptoms, No Abdominal Pain, No Nausea, No Vomiting, No Diarrhea Genitourinary Symptoms: No Symptoms, No Dysuria Musculoskeletal: No Symptoms, No Back Pain, No Neck Pain Skin: No Symptoms, No Rash Neurological: No Symptoms, No Dizziness, No Focal Weakness, No Sensory Changes Psychological: No Symptoms Endocrine: No Symptoms Hematologic/Lymphatic: No Symptoms Immunological/Allergic: No Symptoms All Other Systems: Reviewed and Negative - Past Medical History Pertinent Past Medical History: Yes Neurological History: Paralysis, Peripheral Neuropathy ENT History: No Pertinent History Cardiac History: Coronary Artery Disease, High Cholesterol, Hypertension Respiratory History: Sleep Apnea, Other Endocrine Medical History: No Pertinent History Musculoskeletal History: Arthritis, Degenerative Disk Disease GI Medical History: Hemorrhoids History: No Pertinent History Psycho-Social History: Anxiety, Depression Male Reproductive Disorders: Prostate Problems Other Medical History: O.A TO BILATERAL SHOULERS, KNEES, BACK, NECK - Past Surgical History Past Surgical History: Yes Neuro Surgical History: No Pertinent History Cardiac: CABG Respiratory: No Pertinent History Gastrointestinal: No Pertinent History Genitourinary: No Pertinent History Musculoskeletal: Orthopedic Surgery, Joint Replacement Male Surgical History: No Pertinent History Other Surgical History: GASTRIC BYPASS x 2 , shoulder surgery x 2 1991 and 1994, left knee replaced and rt hip. lower back surgery 1994, left carpel tunnel sugery 1989 R ankle surgery x3 7 1965 and 1968 - Social History Smoking Status: Former smoker How long have you smoked: 30 Exposure to second hand smoke: No Alcohol Use: None Drug Use: none Patient Lives Alone: No Significant Family History: no pertinent family hx - Nursing Vital Signs Nursing Vital Signs: Initial Vital Signs Temperature 97.8 F 10/06/22 18:59 Pulse Rate 87 10/06/22 18:59 Respiratory Rate 20 10/06/22 18:59 Blood Pressure 113/58 10/06/22 18:59 O2 Sat by Pulse Oximetry 98 10/06/22 18:59 Pain Scale Pain Intensity 4 - Physical Exam General Appearance: no apparent distress, alert Eye Exam: PERRL/EOMI, eyes nml inspection Ears, Nose, Throat Exam: normal ENT inspection, TMs normal, pharynx normal, moist mucous membranes Neck Exam: normal inspection, non-tender, supple, full range of motion Respiratory Exam: normal breath sounds, lungs clear, No respiratory distress Cardiovascular Exam: regular rate/rhythm, normal heart sounds, normal peripheral pulses Gastrointestinal/Abdomen Exam: soft, normal bowel sounds, No tenderness, No mass Back Exam: normal inspection, normal range of motion, No CVA tenderness, No vertebral tenderness Extremity Exam: normal inspection, normal range of motion, pelvis stable Neurologic Exam: alert, oriented x 3, cooperative, normal mood/affect, nml cerebellar function, nml station & gait, sensation nml, No motor deficits Skin Exam: normal color, warm, dry, No rash Lymphatic Exam: No adenopathy SpO2 Interpretation: normal SpO2: 98 O2 Delivery: Room Air - Course Nursing assessment & vital signs reviewed: Yes Ordered Tests: Active Orders 24 hr Category Date Time Status Bladder Irrigation STAT Care 10/06/22 19:28 Active Cath [Catheter-Wil[place] Cavazos] STAT Care 10/06/22 20:34 Active CULTURE,URINE Stat Lab 10/06/22 20:35 Received CULTURE,URINE Stat Lab 10/06/22 20:35 Received UA W/RFX CULTURE Stat Lab 10/06/22 20:35 Completed Medication Summary Discontinued Medications Generic Name Dose Route Start Last Admin Trade Name Abhijit PRN Reason Stop Dose Admin Lidocaine HCl 200 mg 10/06/22 20:28 10/06/22 20:29 Lidocaine Hcl 20 Mg/Ml Jelly Uro-Jet TOP 10/06/22 20:29 200 mg STAT ONE Administration Lidocaine HCl Confirm 10/06/22 20:28 Lidocaine Hcl 20 Mg/Ml Jelly Uro-Jet Administered 10/06/22 20:29 Dose 200 mg .ROUTE .STK-MED ONE Lab/Rad Data: Laboratory Results 10/06/22 Range/Units 20:35 Urinalys Dipstick Clnc MAIN LAB Urine Color YELLOW (YELLOW) Urine Appearance CLOUDY A (CLEAR) Urine pH 8.5 A (5-6) Ur Specific [place] 1.025 (1.005-1.025) POC Urine Protein Conf >=300 A (Negative) Urine Ketones NEGATIVE (NEGATIVE) Urine Nitrite NEGATIVE (NEGATIVE) Urine Bilirubin NEGATIVE (NEGATIVE) Urine Urobilinogen >=8.0 A (0-1) mg/dL Urine Leukocytes TRACE A (NEGATIVE) Urine WBC (Auto) 51-100 A (0-5) /HPF Urine RBC (Auto) >101 A (0-2) /HPF U Epithel Cells (Auto) NONE (FEW) /HPF Urine Bacteria (Auto) MODERATE A (NEGATIVE) /HPF Urine RBC LARGE A (0-5) Mitchell/ul Ur Culture Indicated? YES Urine Glucose 100 A (NEGATIVE) mg/dL - Progress Progress: improved Progress Note: Patient reassessed. He feels well. Catheter changed to bladder irrigated. Patient has no complaints. The catheter is draining urine freely. Pay states he is ready for discharge. He agrees to follow-up with his urologist tomorrow. Portions of this note were created with voice recognition technology. There may be grammatical, spelling, punctuation or sound alike errors 10/06/22 20:53 Counseled pt/family regarding: lab results, diagnosis, need for follow-up - Departure Departure Disposition: Home Clinical Impression: Catheter-associated urinary tract infection, UTI (urinary tract infection), Proteinuria Condition: Stable Critical Care Time: No Referrals: MICHELLE ESPINAL [Primary Care Provider] - Follow up/PCP as directed Additional Instructions: Discharge/Care Plan BELLKAM MCGEE KONG was seen on 10/06/22 in the Emergency Room. The patient was counseled regarding Diagnosis,Lab results, Imaging studies, need for follow up and when to return to the Emergency Room. Prescriptions given: Discharge Note I have spoken with the patient and/or caregivers. I have explained the patient's condition, diagnosis and treatment plan based on the information available to me at this time. I have answered the patient's and/or caregiver's questions and addressed any concerns. The patient and/or caregivers have as good understanding of the patient's diagnosis, condition and treatment plan as can be expected at this point. The vital signs have been stable. The patient's condition is stable and appropriate for discharge from the emergency department. The patient will pursue further outpatient evaluation with the primary care physician or other designated or consulting physician as outlined in the discharge instructions. The patient and/or caregivers are agreeable to this plan of care and follow-up instructions have been explained in detail. The patient and/or caregivers have received these instruction. The patient/and or caregivers are aware that any significant change in condition or worsening of symptoms should prompt an immediate return to this or the closest emergency department or call 911. Prescriptions: Ciprofloxacin [Cipro 500 MG] 500 mg PO BID #14 tablet
[2022-10-06 20:52] LABS: Bacteria MODERATE /HPF (NEGATIVE); WBC 51-100 /HPF (0-5)
[2022-10-06 20:53] LABS: RBC >101 /HPF (0-2); Urine Cultured Indicated? YES
[2022-10-06] MEDS ORDERED: Cipro 500 MG ONE (20:56)
[2022-10-06] MEDS ORDERED: PYRIDIUM 200 MG ONE (20:56)
[2022-10-06] MEDS ORDERED: PYRIDIUM 200 MG PO ONE (20:56)
[2022-10-06] MEDS ORDERED: Cipro 500 MG PO ONE (20:56)
[2022-10-06 21:09] VITALS: BP 114/66; PULSE 84
== END 2022-10-06 21:09 | disposition home or self-care (01) ==
LOC: ED 18:51
DX: T83.511A Infection and inflammatory reaction due to indwelling urethral catheter, initial encounter (principal); R80.9 Proteinuria, unspecified; E78.5 Hyperlipidemia, unspecified; I10 Essential (primary) hypertension; Z79.01 Long term (current) use of anticoagulants; Z79.899 Other long term (current) drug therapy
CPT/HCPCS: 51702; 81015; 87086; 99283; A9270-GY

== ENCOUNTER 2023-01-05 16:02 | Observation (INO) | payer MEDICARE ==
[2023-01-05] MEDS ORDERED: SUBLIMAZE 100 MCG/2 ML IM ONE (17:23)
[2023-01-05] MEDS ORDERED: SUBLIMAZE 100 MCG/2 ML ONE (17:30)
--- NOTE | 2023-01-05 19:00 | ERPHSYRPT ---
- History of Present Illness Source: patient Exam Limitations: no limitations Patient Subjective Stated Complaint: C/O pain all the way across his upper back just below his shoulder bladers and RUE pain following a fall at home. Patient was assisted up by ambulance staff and transferred to ER. He refused C-Collar. Triage Nursing Assessment: Patient arrived by ambulance. He is alert and oriented. NO SOB. Multiple scabs and abrasions noted to BLE and bilateral feet; patient indicates not related to todays fall. Swelling also noted to BLE; not new per patient reports. Pain with movement of RUE or touching of RUE. Patient's BLE moving at times during assessment; patient reports this is involutary. Occurred: just prior to arrival Reason for Fall: fell from standing pos Severity of Pain-Max: moderate Severity of Pain-Current: moderate Hx Tetanus, Diphtheria Vaccination/Date Given: Yes Hx Influenza Vaccination/Date Given: Yes Hx Pneumococcal Vaccination/Date Given: Yes Immunizations Up to Date: Yes <FLAQUITA PAYNE - Last Filed: 01/05/23 18:55> <EUGENE MOLINA - Last Filed: 01/06/23 19:51> - History of Present Illness Time Seen by Provider: 01/05/23 16:40 Physician History: Patient is a 72-year-old white male who uses crutches who presents after a fall at home. According to EMS he has frequent falls most of the time he will be helped up dusted off and then he goes home because his has Alzheimer's and he is afraid to come to the hospital and leave her alone. Today his fall occurred just prior to arrival he complains of pain in both shoulders the right forearm the upper and lower back and both legs. Consequently we are x-raying both shoulders right forearm throat thoracolumbar spine both femurs and both lower legs. (FLAQUITA PAYNE) Allergies/Adverse Reactions: No Known Drug Allergies Allergy (Verified 01/05/23 16:10) Home Medications: Tamsulosin HCl 0.4 mg PO BID 11/08/18 [History] Temazepam 30 mg PO HS 11/08/18 [History] Apixaban [Eliquis] 5 mg PO BID 06/21/21 [History] Duloxetine HCl 60 mg PO BID 06/21/21 [History] Oxybutynin Chloride [Oxybutynin Chloride ER] 5 mg PO TID 06/21/21 [History] Tramadol HCl 200 mg PO BID 06/21/21 [History] Travel Risk - International Travel Have you traveled outside of the country in past 3 weeks: No - Coronavirus Screening Are you exhibiting any of the following symptoms?: No Close contact with a COVID-19 positive Pt in past 14-21 Days: No - Vaccine Status Have you recieved a Covid-19 vaccination: Yes 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: [employer] - Vaccination Dates Date of 2cond Vaccination (if applicable): UNK <FLAQUITA PAYNE - Last Filed: 01/05/23 18:55> - Review of Systems Constitutional: No Fever, No Chills Eyes: No Symptoms Ears, Nose, & Throat: No Symptoms Respiratory: No Cough, No Dyspnea Cardiac: No Chest Pain, No Edema, No Syncope Abdominal/Gastrointestinal: No Abdominal Pain, No Nausea, No Vomiting, No Diarrhea Genitourinary Symptoms: No Dysuria Musculoskeletal: Joint Pain, No Back Pain, No Neck Pain Skin: No Rash Neurological: No Dizziness, No Focal Weakness, No Sensory Changes Psychological: No Symptoms Endocrine: No Symptoms All Other Systems: Reviewed and Negative <FLAQUITA PAYNE - Last Filed: 01/05/23 18:55> - Past Medical History Pertinent Past Medical History: Yes Neurological History: Paralysis, Peripheral Neuropathy ENT History: No Pertinent History Cardiac History: Coronary Artery Disease, High Cholesterol, Hypertension Respiratory History: Sleep Apnea, Other Endocrine Medical History: No Pertinent History Musculoskeletal History: Arthritis, Degenerative Disk Disease GI Medical History: Hemorrhoids History: No Pertinent History Psycho-Social History: Anxiety, Depression Male Reproductive Disorders: Prostate Problems Other Medical History: O.A TO BILATERAL SHOULERS, KNEES, BACK, NECK - Past Surgical History Past Surgical History: Yes Neuro Surgical History: No Pertinent History Cardiac: CABG Respiratory: No Pertinent History Gastrointestinal: No Pertinent History Genitourinary: No Pertinent History Musculoskeletal: Joint Replacement, Orthopedic Surgery, Other Male Surgical History: No Pertinent History Other Surgical History: GASTRIC BYPASS x 2 , shoulder surgeries 1991 and 1994, left knee replaced and rt hip, multiple lower back surgeries, left carpel tunnel sugery 1989, R ankle surgery x3 1957 1965 and 1968 - Social History Smoking Status: Former smoker How long have you smoked: 30 Exposure to second hand smoke: No Alcohol Use: None Drug Use: marijuana Patient Lives Alone: No Significant Family History: no pertinent family hx <FLAQUITA PAYNE - Last Filed: 01/05/23 18:55> - Colt Coma Score Best Eye Response (Brainard): (4) open spontaneously Best Verbal Response (Brainard): (5) oriented Best Motor Response (Brainard): (6) obeys commands Colt Total: 15 - Physical Exam General Appearance: mild distress, alert Head Injury: no evidence of injury Eye Exam: PERRL/EOMI ENT Exam: airway nml Neck Exam: supple, trachea midline Respiratory/Chest Exam: chest tenderness, normal breath sounds Cardiovascular Exam: normal heart sounds, regular rate/rhythm Gastrointestinal Exam: soft, normal bowel sounds, No tenderness Back Exam: normal inspection, normal range of motion, vertebral tenderness Extremity Exam: deformities, tenderness Neurologic Exam: alert, oriented x 3, cooperative, sensation nml, No motor d eficits Skin Exam: normal color, warm, dry SpO2 Interpretation: normal SpO2: 99 O2 Delivery: Room Air <KERRYFLAQUITA - Last Filed: 01/05/23 18:55> - Nursing Vital Signs Nursing Vital Signs: Initial Vital Signs Temperature 98 F 01/05/23 16:12 Pulse Rate 66 01/05/23 16:12 Respiratory Rate 16 01/05/23 16:12 Blood Pressure 134/74 01/05/23 16:12 O2 Sat by Pulse Oximetry 97 01/05/23 16:12 Pain Scale Pain Intensity 10 - Course Nursing assessment & vital signs reviewed: Yes <FLAQUITA PAYNE - Last Filed: 01/05/23 18:55> - CT Exams Head CT Interpretation: Negative, Tele-radiologist Report <EUGENE MOLINA - Last Filed: 01/06/23 19:51> Ordered Tests: Active Orders 24 hr Category Date Time Status Call Admit Doctor for Orders ON ADMISSION Care 01/05/23 22:49 Active Code Status Order ROUTINE Care 01/05/23 22:49 Active IV Care Q6H Care 01/05/23 22:[address] in Observation ROUTINE Care 01/05/23 22:49 Active CBC W DIFF Stat Lab 01/05/23 22:40 Completed CK (IN-HOUSE) [CK-Creatinine Phosphokinase] Stat Lab 01/05/23 22:40 Completed CMP Stat Lab 01/05/23 22:40 Completed Medication Summary Generic Name Dose Route Start Last Admin Trade Name Freq PRN Reason Stop Dose Admin Acetaminophen 650 mg 01/06/23 01:42 Acetaminophen 650 Mg Supp.Rect UT 02/05/23 01:41 Q4H PRN PRN PAIN AND/OR FEVER Apixaban 5 mg 01/06/23 00:27 01/06/23 10:07 Apixaban 2.5 Mg Tablet PO 02/05/23 00:26 5 mg BID MITA Administration Docusate Sodium 100 mg 01/06/23 01:42 Docusate Sodium 100 Mg Capsule PO 02/05/23 01:41 BIDPRN PRN CONSTIPATION Duloxetine HCl 60 mg 01/06/23 00:28 01/06/23 10:06 Duloxetine Hcl 30 Mg Cap PO 02/05/23 00:27 60 mg BID MITA Administration Famotidine 20 mg 01/06/23 10:00 01/06/23 10:06 Famotidine 20 Mg Tablet PO 02/05/23 09:59 20 mg BID MITA Administration Sodium Chloride 1,000 mls @ 50 mls/hr 01/06/23 01:45 01/06/23 06:33 Sodium Chloride 0.9% 1000 Ml IV 02/05/23 01:44 50 mls/hr .Q20H MITA Administration Lorazepam 1 mg 01/06/23 14:50 01/06/23 15:59 Lorazepam 2 Mg/1 Ml 2 Mg Vial IV 02/05/23 14:49 1 mg Q6H PRN PRN Administration ANXIETY Magnesium Hydroxide 30 ml 01/06/23 01:42 Magnesium Hydroxide 30 Ml Udcup PO 02/05/23 01:41 HS PRN PRN CONSTIPATION Ondansetron HCl 4 mg 01/06/23 01:42 Ondansetron Hcl 4 Mg/2 Ml Vial IV 02/05/23 01:41 Q6H PRN PRN NAUSEA/VOMITING Polyethylene Glycol 17 gm 01/06/23 10:00 01/06/23 10:07 Polyethylene Glycol 3350 17 Gm Packet PO 02/05/23 09:59 17 gm DAILY MITA Administration Tamsulosin HCl 0.4 mg 01/06/23 00:29 01/06/23 10:07 Tamsulosin Hcl 0.4 Mg Cap PO 02/05/23 00:28 0.4 mg BID MITA Administration Temazepam 30 mg 01/06/23 00:29 01/06/23 00:55 Temazepam 15 Mg Capsule PO 02/05/23 00:28 30 mg HS MITA Administration Tramadol HCl 200 mg 01/06/23 00:30 01/06/23 10:04 Tramadol Hcl 50 Mg Tablet PO 02/05/23 00:29 200 mg BID MITA Administration Discontinued Medications Generic Name Dose Route Start Last Admin Trade Name bAhijit PRN Reason Stop Dose Admin Fentanyl Citrate 50 mcg 01/05/23 17:23 01/05/23 17:32 Fentanyl Citrate 100 Mcg/2 Ml* Vial IM 01/05/23 17:24 50 mcg STAT ONE Administration Fentanyl Citrate Confirm 01/05/23 17:30 Fentanyl Citrate 100 Mcg/2 Ml* Vial Administered 01/05/23 17:31 Dose 100 mcg .ROUTE .Pianpian ONE Lab/Rad Data: Laboratory Result Diagrams 01/05/23 22:40 01/05/23 22:40 Laboratory Results 01/05/23 01/05/23 01/05/23 Range/Units 22:40 22:40 21:40 WBC 6.2 (4.0-10.5) x10^3/uL RBC 3.07 L (4.1-5.6) x10^6/uL Hgb 9.5 L (12.5-18.0) g/dL Hct 30.3 L (42-50) % MCV 98.7 (78-100) fL MCH 30.9 (26-32) pg MCHC 31.4 L (32-36) g/dL RDW 15.3 H (11.5-14.0) % Plt Count 206 (150-450) x10^3/uL MPV 9.4 (7.5-11.0) fL Gran % 74.4 H (36.0-66.0) % Immature Gran % (Auto) 0.2 (0.00-0.4) % Nucleat RBC Rel Count 0.0 (0.00-0.1) % Eos # (Auto) 0.09 (0-0.5) x10^3/uL Immature Gran # (Auto) 0.01 (0.00-0.03) x10^3u/L Absolute Lymphs (auto) 0.95 L (1.0-4.6) x10^3/uL Absolute Monos (auto) 0.47 (0.0-1.3) x10^3/uL Absolute Nucleated RBC 0.00 (0.00-0.01) x10^3u/L Lymphocytes % 15.3 L (24.0-44.0) % Monocytes % 7.6 (0.0-12.0) % Eosinophils % 1.5 (0.00-5.0) % Basophils % 1.0 (0.0-0.4) % Absolute Granulocytes 4.61 (1.4-6.9) x10^3/uL Basophils # 0.06 (0-0.4) x10^3/uL Sodium 140 (137-145) mmol/L Potassium 4.3 (3.5-5.1) mmol/L Chloride 104 (98-107) mmol/L Carbon Dioxide 32 H (22-30) mmol/L Anion Gap 7.7 (5-15) MEQ/L BUN 17 (9-20) mg/dL Creatinine 0.61 L (0.66-1.25) mg/dL Estimated GFR > 60.0 ML/MIN Glucose 97 (74-106) mg/dL Calcium 9.0 (8.4-10.2) mg/dL Total Bilirubin 0.40 (0.2-1.3) mg/dL AST 33 (17-59) U/L ALT 23 (0-50) U/L Alkaline Phosphatase 146 H (38-126) U/L Creatine Kinase 116 (55-170) U/L Serum Total Protein 6.6 (6.3-8.2) g/dL Albumin 3.5 (3.5-5.0) g/dL Urine Color (Yellow) Urine Appearance (Clear) Urine pH (4.6-8.0) Ur Specific [place] (1.005-1.030) Urine Protein (Negative) Urine Glucose (UA) (Negative) mg/dL Urine Ketones (Negative) Urine Blood (Negative) Urine Nitrite (Negative) Urine Bilirubin (Negative) Urine Urobilinogen (0.2) mg/dL Ur Leukocyte Esterase (Negative) U Hyaline Cast (Auto) (0-2) /LPF Urine Microscopic RBC (0-5) /HPF Urine Microscopic WBC (0-5) /HPF Ur Epithelial Cells (None Seen) /HPF Urine Bacteria (None Seen) /HPF Urine Culture Reflexed (NO) Influenza Type A Ag NEGATIVE (NEGATIVE) Influenza Type B Ag NEGATIVE (NEGATIVE) RSV (PCR) NEGATIVE (NEGATIVE) SARS-CoV-2 (PCR) NEGATIVE (NEGATIVE) 01/05/23 Range/Units 12:56 WBC (4.0-10.5) x10^3/uL RBC (4.1-5.6) x10^6/uL Hgb (12.5-18.0) g/dL Hct (42-50) % MCV (78-100) fL MCH (26-32) pg MCHC (32-36) g/dL RDW (11.5-14.0) % Plt Count (150-450) x10^3/uL MPV (7.5-11.0) fL Gran % (36.0-66.0) % Immature Gran % (Auto) (0.00-0.4) % Nucleat RBC Rel Count (0.00-0.1) % Eos # (Auto) (0-0.5) x10^3/uL Immature Gran # (Auto) (0.00-0.03) x10^3u/L Absolute Lymphs (auto) (1.0-4.6) x10^3/uL Absolute Monos (auto) (0.0-1.3) x10^3/uL Absolute Nucleated RBC (0.00-0.01) x10^3u/L Lymphocytes % (24.0-44.0) % Monocytes % (0.0-12.0) % Eosinophils % (0.00-5.0) % Basophils % (0.0-0.4) % Absolute Granulocytes (1.4-6.9) x10^3/uL Basophils # (0-0.4) x10^3/uL Sodium (137-145) mmol/L Potassium (3.5-5.1) mmol/L Chloride (98-107) mmol/L Carbon Dioxide (22-30) mmol/L Anion Gap (5-15) MEQ/L BUN (9-20) mg/dL Creatinine (0.66-1.25) mg/dL Estimated GFR ML/MIN Glucose (74-106) mg/dL Calcium (8.4-10.2) mg/dL Total Bilirubin (0.2-1.3) mg/dL AST (17-59) U/L ALT (0-50) U/L Alkaline Phosphatase (38-126) U/L Creatine Kinase (55-170) U/L Serum Total Protein (6.3-8.2) g/dL Albumin (3.5-5.0) g/dL Urine Color Yellow (Yellow) Urine Appearance Cloudy A (Clear) Urine pH 6.5 (4.6-8.0) Ur Specific [place] 1.020 (1.005-1.030) Urine Protein Trace A (Negative) Urine Glucose (UA) Negative (Negative) mg/dL Urine Ketones Negative (Negative) Urine Blood Negative (Negative) Urine Nitrite Positive A (Negative) Urine Bilirubin Negative (Negative) Urine Urobilinogen 1.0 A (0.2) mg/dL Ur Leukocyte Esterase Large A (Negative) U Hyaline Cast (Auto) NONE SEEN (0-2) /LPF Urine Microscopic RBC 21-50 A (0-5) /HPF Urine Microscopic WBC 51-100 A (0-5) /HPF Ur Epithelial Cells None Seen (None Seen) /HPF Urine Bacteria Many A (None Seen) /HPF Urine Culture Reflexed YES (NO) Influenza Type A Ag (NEGATIVE) Influenza Type B Ag (NEGATIVE) RSV (PCR) (NEGATIVE) SARS-CoV-2 (PCR) (NEGATIVE) - Progress Progress: unchanged <FLAQUITA PAYNE - Last Filed: 01/05/23 18:55> - Progress Counseled pt/family regarding: need for follow-up, rad results <EUGENE MOLINA - Last Filed: 01/06/23 19:51> - Progress Progress Note: Patient accepted for admission for intractable pain, weakness and unsafe d/c. CT head neg. (EUGENE MOLINA) Medical Desision Making - Risk of complications Low Risk: Low risk of morbidity from additional dx testing or treatment <FLAQUITA PAYNE - Last Filed: 01/05/23 18:55> - Discussion of managment Care discussed with:: hospitalist Reviewed:: Test results, Need for additional workup Agreed on:: Treatment plan, need for follow-up, place in obs Will see patient: in hospital - Diagnostic Testing Diagnostic test were ordered, analyzed, and reviewed by me: Yes Radiological Interpretation: Reviewed by me, Teleradiologist Report - Risk of complications The pt has a high risk of morbidity or mortality based on: Decision regarding hospitilization or escalation of hosp level of care <EUGENE MOLINA - Last Filed: 01/06/23 19:51> - Departure Departure Disposition: Home Critical Care Time: No <FLAQUITA PAYNE - Last Filed: 01/05/23 18:55> - Departure Departure Disposition: Observation <EUGENE MOLINA - Last Filed: 01/06/23 19:51> - Departure Clinical Impression: Fall, Intractable pain, Weakness, Risk for falls Condition: Fair
[2023-01-05 22:21] LABS: INFLUENZA A NEGATIVE (NEGATIVE); INFLUENZA B NEGATIVE (NEGATIVE); RESPIRATORY SYNCTIAL VIRUS NEGATIVE (NEGATIVE); SARS-CoV-2 Xpert Express NEGATIVE (NEGATIVE)
[2023-01-05 22:45] LABS: Absolute Neutrophil Ct (ANC) 4.61 x10^3/uL (1.4-6.9); Basophil (Absolute #) 0.06 x10^3/uL (0-0.4); Eosinophil % 1.5 % (0.00-5.0); Eosinophil (Absolute #) 0.09 x10^3/uL (0-0.5); Hematocrit 30.3 % (42-50); Hemoglobin 9.5 g/dL (12.5-18.0); IMMATURE GRAN # 0.01 x10^3u/L (0.00-0.03); IMMATURE GRAN % 0.2 % (0.00-0.4); Lymphocyte (Absolute #) 0.95 x10^3/uL (1.0-4.6); Lymphocytes % 15.3 % (24.0-44.0); Mean Cell Volume 98.7 fL (78-100); Mean Corpuscular Hemoglobin 30.9 pg (26-32); Mean Corpuscular Hgb Concent. 31.4 g/dL (32-36); Mean Platelet Volume 9.4 fL (7.5-11.0); Monocyte (Absolute #) 0.47 x10^3/uL (0.0-1.3); Monocytes % 7.6 % (0.0-12.0); Neutrophil % 74.4 % (36.0-66.0); Platelet Count 206 x10^3/uL (150-450); Red Blood Count 3.07 x10^6/uL (4.1-5.6); Red Cell Distribution Width 15.3 % (11.5-14.0); White Blood Count 6.2 x10^3/uL (4.0-10.5)
[2023-01-05 23:02] LABS: ALBUMIN 3.5 g/dL (3.5-5.0); ALKALINE PHOSPHATASE 146 U/L (38-126); ANION GAP 7.7 MEQ/L (5-15); BLOOD UREA NITROGEN 17 mg/dL (9-20); CHLORIDE 104 mmol/L (98-107); CK-Creatinine Phosphokinase 116 U/L (55-170); Carbon Dioxide 32 mmol/L (22-30); Creatinine 1 0.61 mg/dL (0.66-1.25); EST GLOMERULAR FILTRATION RATE > 60.0 ML/MIN; Glucose 97 mg/dL (74-106); Potassium 4.3 mmol/L (3.5-5.1); SGOT/AST 33 U/L (17-59); SGPT/ALT 23 U/L (0-50); SODIUM 140 mmol/L (137-145); Total Protein 6.6 g/dL (6.3-8.2)
[2023-01-06 00:43] LABS: Folate (Folic Acid) > 19.0 ng/mL (2.76 - >20); Vitamin B12 470 pg/mL (239-931)
[2023-01-06] MEDS: Cymbalta 30 MG Capsule PO SCH ×3 (00:55→21:34)
[2023-01-06] MEDS: Flomax 0.4 MG PO SCH ×3 (00:55→21:34)
[2023-01-06] MEDS: ULTRAM 50 MG PO SCH ×3 (00:55→21:34)
[2023-01-06] MEDS: Restoril 15 MG PO SCH ×2 (00:55→22:58)
[2023-01-06] MEDS: ELIQUIS 2.5 MG TABLET PO SCH ×3 (00:55→22:58)
[2023-01-06] MEDS ORDERED: MILK OF MAGNESIA 30 ML PO PRN (01:42)
[2023-01-06] MEDS ORDERED: Docusate Sodium 100 MG PO PRN (01:42)
[2023-01-06] MEDS ORDERED: FEVERALL 650 MG PR PRN (01:42)
[2023-01-06] MEDS ORDERED: Zofran 4 MG/2 ML VIAL IV PRN (01:42)
--- NOTE | 2023-01-06 01:58 | PCM.HP ---
History of Present Illness - Chief Complaint Chief Complaint: Weakness Date: 01/05/23 (PRE MIDNIGHT ADMISSION) History of Present Illness: is a 72 year old male with a history of chronic debility (wheelchair bound) and frequent falls who presents to the ED after a fall. He states that he might have hit his head but had no LOC or dizziness. He struggles with mobility and transfers and has fallen multiple times. 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 The patient has chronic pain on tramadol. The patient has diffiuse pain below the neck but it is non-focal and non- lateralizing. In the ED, CT head is negative. The patient was not able to ambulate in the ED. - Review of Systems Eyes: No Symptoms Ears, Nose, & Throat: No Symptoms Respiratory: No Symptoms Cardiac: No Symptoms Abdominal/Gastrointestinal: Constipation Genitourinary Symptoms: No Symptoms Musculoskeletal: No Symptoms Skin: No Symptoms Neurological: No Symptoms Psychological: No Symptoms Endocrine: No Symptoms Medications & Allergies Home Medications: Home Medication List Tamsulosin HCl 0.4 mg PO BID 11/08/18 [History Confirmed 01/05/23] Temazepam 30 mg PO HS 11/08/18 [History Confirmed 01/05/23] Apixaban [Eliquis] 5 mg PO BID 06/21/21 [History Confirmed 01/05/23] Duloxetine HCl 60 mg PO BID 06/21/21 [History Confirmed 01/05/23] Oxybutynin Chloride [Oxybutynin Chloride ER] 5 mg PO TID 06/21/21 [History Confirmed 01/05/23] Tramadol HCl 200 mg PO BID 06/21/21 [History Confirmed 01/05/23] Allergies/Adverse Reactions: Allergies Allergy/AdvReac Type Severity Reaction Status Date / Time No Known Drug Allergies Allergy Verified 01/05/23 16:10 - Past Medical History Past Medical History: Yes Neurological History: Peripheral Neuropathy ENT History: No Pertinent History Cardiac History: Coronary Artery Disease, High Cholesterol, Hypertension Respiratory History: Sleep Apnea, Other Endocrine Medical History: No Pertinent History Musculoskelatal History: Arthritis, Degenerative Disk Disease GI Medical History: Hemorrhoids History: No Pertinent History Pyscho-Social History: Anxiety, Depression Male Reproductive Disorders: Prostate Problems Comment: O.A TO BILATERAL SHOULERS, KNEES, BACK, NECK - Past Surgical History Past Surgical History: Yes Neuro Surgical History: No Pertinent History Cardiac History: CABG Respiratory Surgery: No Pertinent History GI Surgical History: No Pertinent History Genitourinary Surgical Hx: No Pertinent History Musculskeletal Surgical Hx: Joint Replacement, Orthopedic Surgery, Other Male Surgical History: No Pertinent History Other Surgical History: GASTRIC BYPASS x 2 , shoulder surgeries 1978 and 1979, left knee replaced and rt hip, multiple lower back surgeries, left carpel tunnel sugery 1990, R ankle surgery x3 7 1965 and 1968 - Social History Smoking Status: Current every day smoker How long have you smoked: marijuana Exposure to second hand smoke: No Alcohol: None Drug Use: marijuana Significant Family History: no pertinent family hx - Physical Exam Vital Signs: Vital Signs - 24 hr Temp Pulse Resp BP Pulse Ox 01/06/23 00:06 97.1 F 74 128/59 98 01/05/23 18:59 99 01/05/23 17:40 100.1 F 89 18 127/78 99 01/05/23 16:12 98 F 66 16 134/74 97 General Appearance: no apparent distress Neurologic Exam: alert, oriented x 3, cooperative, water technician II-XII nml as tested, normal mood/affect Eye Exam: PERRL/EOMI, eyes nml inspection Ears, Nose, Throat Exam: normal ENT inspection Neck Exam: normal inspection Respiratory Exam: normal breath sounds, lungs clear Cardiovascular Exam: regular rate/rhythm, normal heart sounds, normal peripheral pulses, capillary refill 2-3 sec Gastrointestinal/Abdomen Exam: soft, normal bowel sounds Extremity Exam: normal inspection, other (patient has contractures of the lower extremities. Difficult to uncross legs.) Skin Exam: normal color, warm Wound Assessment: Skin/Wound Assessment Wound/Incision Assessment Start: 01/06/23 00:54 Text: Status: Active Freq: Q6H Protocol: Document 01/06/23 00:54 (Rec: 01/06/23 01:10 [id number]) Wound Photo Photo Taken Yes Date: 01/06/23 Time: 00:45 Results - Labs Lab/Micro Results: Lab Results-Last 24 Hours 01/05/23 01/05/23 01/05/23 Range/Units 21:40 22:40 22:40 WBC 6.2 (4.0-10.5) x10^3/uL RBC 3.07 L (4.1-5.6) x10^6/uL Hgb 9.5 L (12.5-18.0) g/dL Hct 30.3 L (42-50) % MCV 98.7 (78-100) fL MCH 30.9 (26-32) pg MCHC 31.4 L (32-36) g/dL RDW 15.3 H (11.5-14.0) % Plt Count 206 (150-450) x10^3/uL MPV 9.4 (7.5-11.0) fL Gran % 74.4 H (36.0-66.0) % Immature Gran % (Auto) 0.2 (0.00-0.4) % Nucleat RBC Rel Count 0.0 (0.00-0.1) % Eos # (Auto) 0.09 (0-0.5) x10^3/uL Immature Gran # (Auto) 0.01 (0.00-0.03) x10^3u/L Absolute Lymphs (auto) 0.95 L (1.0-4.6) x10^3/uL Absolute Monos (auto) 0.47 (0.0-1.3) x10^3/uL Absolute Nucleated RBC 0.00 (0.00-0.01) x10^3u/L Lymphocytes % 15.3 L (24.0-44.0) % Monocytes % 7.6 (0.0-12.0) % Eosinophils % 1.5 (0.00-5.0) % Basophils % 1.0 (0.0-0.4) % Absolute Granulocytes 4.61 (1.4-6.9) x10^3/uL Basophils # 0.06 (0-0.4) x10^3/uL Sodium 140 (137-145) mmol/L Potassium 4.3 (3.5-5.1) mmol/L Chloride 104 (98-107) mmol/L Carbon Dioxide 32 H (22-30) mmol/L Anion Gap 7.7 (5-15) MEQ/L BUN 17 (9-20) mg/dL Creatinine 0.61 L (0.66-1.25) mg/dL Estimated GFR > 60.0 ML/MIN Glucose 97 (74-106) mg/dL Calcium 9.0 (8.4-10.2) mg/dL Total Bilirubin 0.40 (0.2-1.3) mg/dL AST 33 (17-59) U/L ALT 23 (0-50) U/L Alkaline Phosphatase 146 H (38-126) U/L Creatine Kinase 116 (55-170) U/L Serum Total Protein 6.6 (6.3-8.2) g/dL Albumin 3.5 (3.5-5.0) g/dL Vitamin B12 (239-931) pg/mL Folic Acid (2.76 - >20) ng/mL Influenza Type A Ag NEGATIVE (NEGATIVE) Influenza Type B Ag NEGATIVE (NEGATIVE) RSV (PCR) NEGATIVE (NEGATIVE) SARS-CoV-2 (PCR) NEGATIVE (NEGATIVE) 01/06/23 Range/Units Unknown WBC (4.0-10.5) x10^3/uL RBC (4.1-5.6) x10^6/uL Hgb (12.5-18.0) g/dL Hct (42-50) % MCV (78-100) fL MCH (26-32) pg MCHC (32-36) g/dL RDW (11.5-14.0) % Plt Count (150-450) x10^3/uL MPV (7.5-11.0) fL Gran % (36.0-66.0) % Immature Gran % (Auto) (0.00-0.4) % Nucleat RBC Rel Count (0.00-0.1) % Eos # (Auto) (0-0.5) x10^3/uL Immature Gran # (Auto) (0.00-0.03) x10^3u/L Absolute Lymphs (auto) (1.0-4.6) x10^3/uL Absolute Monos (auto) (0.0-1.3) x10^3/uL Absolute Nucleated RBC (0.00-0.01) x10^3u/L Lymphocytes % (24.0-44.0) % Monocytes % (0.0-12.0) % Eosinophils % (0.00-5.0) % Basophils % (0.0-0.4) % Absolute Granulocytes (1.4-6.9) x10^3/uL Basophils # (0-0.4) x10^3/uL Sodium (137-145) mmol/L Potassium (3.5-5.1) mmol/L Chloride (98-107) mmol/L Carbon Dioxide (22-30) mmol/L Anion Gap (5-15) MEQ/L BUN (9-20) mg/dL Creatinine (0.66-1.25) mg/dL Estimated GFR ML/MIN Glucose (74-106) mg/dL Calcium (8.4-10.2) mg/dL Total Bilirubin (0.2-1.3) mg/dL AST (17-59) U/L ALT (0-50) U/L Alkaline Phosphatase (38-126) U/L Creatine Kinase (55-170) U/L Serum Total Protein (6.3-8.2) g/dL Albumin (3.5-5.0) g/dL Vitamin B12 470 (239-931) pg/mL Folic Acid > 19.0 (2.76 - >20) ng/mL Influenza Type A Ag (NEGATIVE) Influenza Type B Ag (NEGATIVE) RSV (PCR) (NEGATIVE) SARS-CoV-2 (PCR) (NEGATIVE) - Radiology Impressions Radiology Exams & Impressions: Radiology Procedures Category Date Time Status CERVICAL SPINE (2 OR 3 VIEW) Stat Exams 01/05/23 16:59 Taken FEMUR Stat Exams 01/05/23 17:02 Taken FEMUR Stat Exams 01/05/23 17:04 Taken FOREARM Stat Exams 01/05/23 17:05 Taken HEAD WITHOUT CONTRAST [CT] Stat Exams 01/05/23 22:49 Taken LOWER LEG Stat Exams 01/05/23 17:01 Taken LOWER LEG Stat Exams 01/05/23 17:04 Taken LUMBAR LIMITED (2 OR 3 VIEWS) Stat Exams 01/05/23 16:59 Taken SHOULDER Stat Exams 01/05/23 17:01 Taken SHOULDER Stat Exams 01/05/23 17:05 Taken THORACOLUMBAR SPINE Stat Exams 01/05/23 17:00 Taken Assessment/Plan (1) Fall Current Visit: Yes Status: Acute Assessment & Plan: PT/OT. ST eval to rule out dysphagia Code(s): W19.XXXA - UNSPECIFIED FALL, INITIAL ENCOUNTER (2) Intractable pain Current Visit: Yes Status: Acute Assessment & Plan: Continue tramadol. Exam nonfocal. CT head negative. Code(s): R52 - PAIN, UNSPECIFIED (3) Risk for falls Current Visit: Yes Status: Acute Assessment & Plan: Likely needs coordinated, joint placement with . Patient in agreement. customer services manager consulted Code(s): Z91.81 - HISTORY OF FALLING (4) Constipation Current Visit: Yes Status: Acute Assessment & Plan: Chronic. Usually has BM every 3-4 days. Abdominal exam benign. Does have history of fecal impaction. Bowel regimen. The entirety of this encounter was performed via telemedicine. The patient consented to this telemedicine encounter. Code(s): K59.00 - CONSTIPATION, UNSPECIFIED Telemedicine Encounter - Telemedicine Encounter Telemedicine Encounter: The entirety of this encounter was performed via Telemedicine"
[2023-01-06] MEDS: Sodium Chloride 0.9% 1000 ML 1,000 ML IV SCH ×2 (06:33→22:58)
--- NOTE | 2023-01-06 08:41 | XRAY ---
Indication: Status post fall. Comparison: None 2 AP views right shoulder demonstrates osteopenia, moderate glenohumeral degenerative arthropathy, resection distal clavicle, humeral head orthopedic tacks, 1.3 cm axillary calcified node, and high riding humeral head commonly seen with rotator cuff tear. No other bony, articular, or soft tissue abnormalities.
--- NOTE | 2023-01-06 08:41 | XRAY ---
Indication: Status post fall. Comparison: None 2 AP views left shoulder demonstrates osteopenia, moderate glenohumeral degenerative arthropathy, resection distal clavicle, humeral head orthopedic tacks, 2 cm axillary calcified node, and high riding humeral head commonly seen with rotator cuff tear. No other bony, articular, or soft tissue abnormalities.
--- NOTE | 2023-01-06 08:43 | XRAY ---
Indication: Status post fall. Comparison: None 3 views cervical spine demonstrates osteopenia, moderate/advanced multilevel degenerative changes, and minimal bilateral carotid calcifications. No other bony, articular, or soft tissue abnormalities.
--- NOTE | 2023-01-06 08:45 | XRAY ---
Indication: Status post fall. Comparison: None AP/lateral spine centered at thoracolumbar junction demonstrates osteopenia, mild/moderate multilevel degenerative changes greatest at T10-T11, remote T11 superior endplate fracture with less than 25% height loss, epigastric suture material, and mild aortic calcifications. No other bony, articular, or soft tissue abnormalities. Lumbar spine reported separately.
--- NOTE | 2023-01-06 08:47 | XRAY ---
Indication: Status post fall. Comparison: None 3 view lumbar spine demonstrates 5 lumbar segments with osteopenia, bilateral L1-S1 fusion hardware with fractured left S1 pedicle screw, L1-L5 laminectomy, mild multilevel degenerative changes, partially visualized right hip arthroplasty, epigastric suture material, and mild aortic calcifications. No other bony, articular, or soft tissue abnormalities.
--- NOTE | 2023-01-06 08:49 | XRAY ---
Indication: Status post fall. Comparison: None 2 view right femur demonstrates osteopenia, total hip arthroplasty with intact bipolar prosthesis/acetabular screw, and moderate scattered vascular calcifications. No other bony, articular, or soft tissue abnormalities. Lumbar spine reported separately.
--- NOTE | 2023-01-06 08:49 | XRAY ---
Indication: Status post fall. Comparison: None 2 view left femur demonstrates osteopenia, total knee arthroplasty with intact prosthesis, scattered proximal/distal vascular clips, and moderate scattered vascular calcifications. No other bony, articular, or soft tissue abnormalities. Lumbar spine reported separately.
--- NOTE | 2023-01-06 08:51 | XRAY ---
Indication: Status post fall. Comparison: None 2 view left lower leg demonstrates osteopenia, old distal fibula shaft fracture, tiny posterior heel spur, total knee arthroplasty with intact prosthesis, posterior medial knee vascular clips, and mild scattered vascular calcifications. No other bony, articular, or soft tissue abnormalities. Femur reported separately.
--- NOTE | 2023-01-06 08:51 | XRAY ---
Indication: Status post fall. Comparison: None 2 view right lower leg demonstrates osteopenia, tiny tibial tuberosity spurring, old distal fibula shaft fracture, moderate ankle/foot degenerative arthropathy, tiny posterior heel spur, and mild scattered vascular calcifications. No other bony, articular, or soft tissue abnormalities. Femur reported separately.
--- NOTE | 2023-01-06 08:53 | XRAY ---
Indication: Status post fall. Comparison: None 2 view right forearm demonstrates osteopenia, radiocarpal joint space narrowing, mild 1st metacarpal multangular scaphoid degenerative changes, and spurring coronoid process/lateral epicondyle. No other bony, articular, or soft tissue abnormalities.
--- NOTE | 2023-01-06 09:17 | XRAY ---
Indication: Pain and headache following fall. Multiple contiguous axial images obtained through the head without contrast. Comparison: December 17, 2022 Again age-appropriate global atrophy and minimal periventricular degenerative micro-ischemia. No acute intracranial hemorrhage, abnormal extra-axial fluid collection, or mass effect. Fourth ventricle is midline without hydrocephalus. Bony calvarium intact. Visualized paranasal sinuses and mastoid air cells are clear. Impression: Continued nonacute senile brain. Comment: Preliminary interpretation made by [facility]. No critical discrepancy.
[2023-01-06] MEDS ORDERED: Miralax Powder 17GM PACKET PO SCH (10:00)
[2023-01-06] MEDS: Pepcid 20 MG PO SCH ×2 (10:06→21:34)
[2023-01-06 13:58] LABS: Appearance Cloudy (Clear); Bilirubin Negative (Negative); Blood Negative (Negative); Glucose, Urine Negative (Negative); Ketones Negative (Negative); Leukocyte Esterase Large (Negative); Nitrite Positive (Negative); Ph 6.5 (4.6-8.0); Protein,Urine Dip Trace (Negative)
[2023-01-06] MEDS ORDERED: Ativan 2 MG/1 ML VIAL IV PRN (14:50)
[2023-01-06 15:28] LABS: Bacteria Many /HPF (None Seen); Epithelial Cells None Seen /HPF (None Seen); Hyaline Casts NONE SEEN /LPF (0-2); RBC 21-50 /HPF (0-5); WBC 51-100 /HPF (0-5)
[2023-01-06 15:41] LABS: ADD URINE CULTURE? YES (NO)
--- NOTE | 2023-01-06 17:33 | XRAY ---
Indication: Neck pain following fall. Sagittal and axial MRI cervical spine performed using pre-and post T1 and T2-weighted sequences. 14 cc Dotarem contrast used. Comparison: None All images/sequences degraded by significant motion artifact even with repeat MRI. Sagittal images demonstrates lordotic straightening, positional versus paraspinal spasm. Multilevel degenerative disc desiccation signal with C2-C7 disc space loss. Sagittal images also demonstrates mild/moderate C2-C7 and T1-T3 broad-based disc bulge effacing the thecal sac. Greatest disc bulge at C4-C6 levels with spinal canal stenosis. Postcontrast images also markedly limited. No obvious abnormal enhancing intra or extrathecal mass or abnormal bony enhancement. Impression: Markedly limited MRI with contrast exam due to significant motion artifact. 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 Grossly negative contrast exam.
[2023-01-06] MEDS ORDERED: ROCEPHIN 1 Gm-D5w 50 ml Bag** 1 G/50 ML IVPB IV SCH (20:00)
--- NOTE | 2023-01-06 20:23 | PCM.NOTE ---
Date and Time: 01/06/232019 Subjective Assessment: last 12 hours events noted - Review of Systems Constitutional: No Fever, No Chills Eyes: No Symptoms Ears, Nose, & Throat: No Symptoms Respiratory: No Cough, No Short Of Breath Cardiac: No Chest Pain, No Edema, No Syncope Abdominal/Gastrointestinal: No Abdominal Pain, No Nausea, No Vomiting, No Diarrhea Genitourinary Symptoms: No Dysuria Musculoskeletal: Neck Pain, Fall, No Back Pain Skin: No Rash Neurological: Focal Weakness, Gait Changes, Tremors, No Dizziness, No Sensory Changes Psychological: No Symptoms Endocrine: No Symptoms Hematologic/Lymphatic: No Symptoms Immunological/Allergic: No Symptoms Objective Exam General Appearance: no apparent distress, alert Neurologic Exam: alert, oriented x 3, cooperative, sensation nml, motor weakness, abnormal gait, abnormal cerebellar tests, No motor deficits Skin Exam: normal color, warm, dry Wound Assessment: Skin/Wound Assessment Wound/Incision Assessment Start: 01/06/23 00:54 Text: Status: Active Freq: Q6H Protocol: Document 01/06/23 14:00 RB (Rec: 01/06/23 14:18 RB [id number]) Wound Photo Photo Taken Yes Date: 01/06/23 Time: 00:45 Eye Exam: PERRL, EOMI, eyes nml inspection Ears, Nose, Throat Exam: normal ENT inspection, pharynx normal, moist mucous membranes Neck Exam: normal inspection, non-tender, supple, full range of motion Respiratory Exam: normal breath sounds, lungs clear, No respiratory distress Cardiovascular Exam: regular rate/rhythm, normal heart sounds Gastrointestinal/Abdomen Exam: soft, No tenderness, No mass Extremity Exam: normal inspection, normal range of motion Back Exam: normal inspection, normal range of motion, No CVA tenderness, No vertebral tenderness Male Genitalia Exam: deferred Rectal Exam: deferred OBJECTIVE DATA Vital Signs: Vital Signs - 24 hr Temp Pulse Resp BP BP Pulse Ox 01/06/23 16:00 97.9 F 70 16 111/68 97 01/06/23 15:59 70 16 111/68 01/06/23 11:48 97.9 F 72 16 104/54 97 01/06/23 07:16 97.9 F 81 16 119/59 95 01/06/23 04:00 97.1 F 78 16 104/51 95 03/21/23 00:06 97.1 F 74 128/59 98 Pain Assessment - Last Documented Pain Intensity 6 Intake and Output: Intake & Output 01/04/23 01/05/23 01/06/23 01/07/23 11:59 11:59 11:59 11:59 Intake Total 600 455 Balance 600 455 Weight 69.9 kg Lab Results: Lab Results-Last 24 Hours 01/05/23 01/05/23 01/05/23 Range/Units 12:56 21:40 22:40 WBC 6.2 (4.0-10.5) x10^3/uL RBC 3.07 L (4.1-5.6) x10^6/uL Hgb 9.5 L (12.5-18.0) g/dL Hct 30.3 L (42-50) % MCV 98.7 (78-100) fL MCH 30.9 (26-32) pg MCHC 31.4 L (32-36) g/dL RDW 15.3 H (11.5-14.0) % Plt Count 206 (150-450) x10^3/uL MPV 9.4 (7.5-11.0) fL Gran % 74.4 H (36.0-66.0) % Immature Gran % (Auto) 0.2 (0.00-0.4) % Nucleat RBC Rel Count 0.0 (0.00-0.1) % Eos # (Auto) 0.09 (0-0.5) x10^3/uL Immature Gran # (Auto) 0.01 (0.00-0.03) x10^3u/L Absolute Lymphs (auto) 0.95 L (1.0-4.6) x10^3/uL Absolute Monos (auto) 0.47 (0.0-1.3) x10^3/uL Absolute Nucleated RBC 0.00 (0.00-0.01) x10^3u/L Lymphocytes % 15.3 L (24.0-44.0) % Monocytes % 7.6 (0.0-12.0) % Eosinophils % 1.5 (0.00-5.0) % Basophils % 1.0 (0.0-0.4) % Absolute Granulocytes 4.61 (1.4-6.9) x10^3/uL Basophils # 0.06 (0-0.4) x10^3/uL Sodium (137-145) mmol/L Potassium (3.5-5.1) mmol/L Chloride (98-107) mmol/L Carbon Dioxide (22-30) mmol/L Anion Gap (5-15) MEQ/L BUN (9-20) mg/dL Creatinine (0.66-1.25) mg/dL Estimated GFR ML/MIN Glucose (74-106) mg/dL Calcium (8.4-10.2) mg/dL Total Bilirubin (0.2-1.3) mg/dL AST (17-59) U/L ALT (0-50) U/L Alkaline Phosphatase (38-126) U/L Creatine Kinase (55-170) U/L Serum Total Protein (6.3-8.2) g/dL Albumin (3.5-5.0) g/dL Vitamin B12 (239-931) pg/mL Folic Acid (2.76 - >20) ng/mL Urine Color Yellow (Yellow) Urine Appearance Cloudy A (Clear) Urine pH 6.5 (4.6-8.0) Ur Specific [place] 1.020 (1.005-1.030) Urine Protein Trace A (Negative) Urine Glucose (UA) Negative (Negative) mg/dL Urine Ketones Negative (Negative) Urine Blood Negative (Negative) Urine Nitrite Positive A (Negative) Urine Bilirubin Negative (Negative) Urine Urobilinogen 1.0 A (0.2) mg/dL Ur Leukocyte Esterase Large A (Negative) U Hyaline Cast (Auto) NONE SEEN (0-2) /LPF Urine Microscopic RBC 21-50 A (0-5) /HPF Urine Microscopic WBC 51-100 A (0-5) /HPF Ur Epithelial Cells None Seen (None Seen) /HPF Urine Bacteria Many A (None Seen) /HPF Urine Culture Reflexed YES (NO) Influenza Type A Ag NEGATIVE (NEGATIVE) Influenza Type B Ag NEGATIVE (NEGATIVE) RSV (PCR) NEGATIVE (NEGATIVE) SARS-CoV-2 (PCR) NEGATIVE (NEGATIVE) 01/05/23 01/06/23 Range/Units 22:40 Unknown WBC (4.0-10.5) x10^3/uL RBC (4.1-5.6) x10^6/uL Hgb (12.5-18.0) g/dL Hct (42-50) % MCV (78-100) fL MCH (26-32) pg MCHC (32-36) g/dL RDW (11.5-14.0) % Plt Count (150-450) x10^3/uL MPV (7.5-11.0) fL Gran % (36.0-66.0) % Immature Gran % (Auto) (0.00-0.4) % Nucleat RBC Rel Count (0.00-0.1) % Eos # (Auto) (0-0.5) x10^3/uL Immature Gran # (Auto) (0.00-0.03) x10^3u/L Absolute Lymphs (auto) (1.0-4.6) x10^3/uL Absolute Monos (auto) (0.0-1.3) x10^3/uL Absolute Nucleated RBC (0.00-0.01) x10^3u/L Lymphocytes % (24.0-44.0) % Monocytes % (0.0-12.0) % Eosinophils % (0.00-5.0) % Basophils % (0.0-0.4) % Absolute Granulocytes (1.4-6.9) x10^3/uL Basophils # (0-0.4) x10^3/uL Sodium 140 (137-145) mmol/L Potassium 4.3 (3.5-5.1) mmol/L Chloride 104 (98-107) mmol/L Carbon Dioxide 32 H (22-30) mmol/L Anion Gap 7.7 (5-15) MEQ/L BUN 17 (9-20) mg/dL Creatinine 0.61 L (0.66-1.25) mg/dL Estimated GFR > 60.0 ML/MIN Glucose 97 (74-106) mg/dL Calcium 9.0 (8.4-10.2) mg/dL Total Bilirubin 0.40 (0.2-1.3) mg/dL AST 33 (17-59) U/L ALT 23 (0-50) U/L Alkaline Phosphatase 146 H (38-126) U/L Creatine Kinase 116 (55-170) U/L Serum Total Protein 6.6 (6.3-8.2) g/dL Albumin 3.5 (3.5-5.0) g/dL Vitamin B12 470 (239-931) pg/mL Folic Acid > 19.0 (2.76 - >20) ng/mL Urine Color (Yellow) Urine Appearance (Clear) Urine pH (4.6-8.0) Ur Specific [place] (1.005-1.030) Urine Protein (Negative) Urine Glucose (UA) (Negative) mg/dL Urine Ketones (Negative) Urine Blood (Negative) Urine Nitrite (Negative) Urine Bilirubin (Negative) Urine Urobilinogen (0.2) mg/dL Ur Leukocyte Esterase (Negative) U Hyaline Cast (Auto) (0-2) /LPF Urine Microscopic RBC (0-5) /HPF Urine Microscopic WBC (0-5) /HPF Ur Epithelial Cells (None Seen) /HPF Urine Bacteria (None Seen) /HPF Urine Culture Reflexed (NO) Influenza Type A Ag (NEGATIVE) Influenza Type B Ag (NEGATIVE) RSV (PCR) (NEGATIVE) SARS-CoV-2 (PCR) (NEGATIVE) Radiology Exams: Radiology Procedures Category Date Time Status CERVICAL SPINE (2 OR 3 VIEW) Stat Exams 01/05/23 16:59 Completed FEMUR Stat Exams 01/05/23 17:02 Completed FEMUR Stat Exams 01/05/23 17:04 Completed FOREARM Stat Exams 01/05/23 17:05 Completed HEAD WITHOUT CONTRAST [CT] Stat Exams 01/05/23 22:49 Completed LOWER LEG Stat Exams 01/05/23 17:01 Completed LOWER LEG Stat Exams 01/05/23 17:04 Completed LUMBAR LIMITED (2 OR 3 VIEWS) Stat Exams 01/05/23 16:59 Completed MRI C-SPINE W & WO CONTRAST [MRI] Routine Exams 01/06/23 10:16 Completed SHOULDER Stat Exams 01/05/23 17:01 Completed SHOULDER Stat Exams 01/05/23 17:05 Completed THORACOLUMBAR SPINE Stat Exams 01/05/23 17:00 Completed Multi-Disciplinary Progress Notes: Multi-Disciplinary Progress Notes 01/06/23 10:27 Case Management Note by Ana Rosa Gonzáles DR. NOTIFIED OF PHYSICAL THERAPY'S CONCERN FOR SPINAL INJURY D/T NEW DIFFICULTY WITH UPPER EXTREMITY MOVEMENTS AND C/O "ELECTRIC SHOCK PAIN" WITH ANY MOVEMENT IN HIS NECK AND WITH CHEWING. NEW ORDERS FOR MRI OF CSPINE, NEURO CONSULT AND FOR PATIENT TO BE PLACED IN A CSPINE COLLAR Initialized on 01/06/23 10:27 - END OF NOTE 01/06/23 10:27 Case Management Note by Ana Rosa Gonzáles HS NOTIFIED OF CSPINE COLLAR ORDERED FOR PATIENT Initialized on 01/06/23 10:27 - END OF NOTE Assessment/Plan (1) Cervical radiculopathy due to degenerative joint disease of spine Current Visit: Yes Status: Acute Assessment & Plan: Chief Complaint Diagnosis Weakness Admission Date Date 01/05/23 Allergies Allergy/AdvReac Type Severity Reaction Status Date / Time No Known Drug Allergies Allergy Verified 01/05/23 16:10 Vital Signs (Last 24 hours) Temp Pulse Resp BP BP Pulse Ox 01/06/23 16:00 97.9 F 70 16 111/68 97 01/06/23 15:59 70 16 111/68 01/06/23 11:48 97.9 F 72 16 104/54 97 01/06/23 07:16 97.9 F 81 16 119/59 95 01/06/23 04:00 97.1 F 78 16 104/51 95 01/06/23 00:06 97.1 F 74 128/59 98 Current Medications Generic Name Dose Route Start Last Admin Trade Name Freq PRN Reason Stop Dose Admin Acetaminophen 650 mg 01/06/23 01:42 Acetaminophen 650 Mg Supp.Rect MA 02/05/23 01:41 Q4H PRN PRN PAIN AND/OR FEVER Apixaban 5 mg 01/06/23 00:27 01/06/23 10:07 Apixaban 2.5 Mg Tablet PO 02/05/23 00:26 5 mg BID MITA Administration Docusate Sodium 100 mg 01/06/23 01:42 Docusate Sodium 100 Mg Capsule PO 02/05/23 01:41 BIDPRN PRN CONSTIPATION Duloxetine HCl 60 mg 01/06/23 00:28 01/06/23 10:06 Duloxetine Hcl 30 Mg Cap PO 02/05/23 00:27 60 mg BID MITA Administration Famotidine 20 mg 01/06/23 10:00 01/06/23 10:06 Famotidine 20 Mg Tablet PO 02/05/23 09:59 20 mg BID MITA Administration Sodium Chloride 1,000 mls @ 50 mls/hr 01/06/23 01:45 01/06/23 06:33 Sodium Chloride 0.9% 1000 Ml IV 02/05/23 01:44 50 mls/hr .Q20H MITA Administration Ceftriaxone Sodium/Dextrose 1 g in 50 mls @ 100 mls/hr 01/06/23 20:00 Rocephin 1 Gm-D5w 50 Ml Bag IV 01/09/23 19:59 Q24H10 MITA Lorazepam 1 mg 01/06/23 14:50 01/06/23 15:59 Lorazepam 2 Mg/1 Ml 2 Mg Vial IV 02/05/23 14:49 1 mg Q6H PRN PRN Administration ANXIETY Magnesium Hydroxide 30 ml 01/06/23 01:42 Magnesium Hydroxide 30 Ml Udcup PO 02/05/23 01:41 HS PRN PRN CONSTIPATION Ondansetron HCl 4 mg 01/06/23 01:42 Ondansetron Hcl 4 Mg/2 Ml Vial IV 02/05/23 01:41 Q6H PRN PRN NAUSEA/VOMITING Polyethylene Glycol 17 gm 01/06/23 10:00 01/06/23 10:07 Polyethylene Glycol 3350 17 Gm Packet PO 02/05/23 09:59 17 gm DAILY MITA Administration Tamsulosin HCl 0.4 mg 01/06/23 00:29 01/06/23 10:07 Tamsulosin Hcl 0.4 Mg Cap PO 02/05/23 00:28 0.4 mg BID MITA Administration Temazepam 30 mg 01/06/23 00:29 01/06/23 00:55 Temazepam 15 Mg Capsule PO 02/05/23 00:28 30 mg HS MITA Administration Tramadol HCl 200 mg 01/06/23 00:30 01/06/23 10:04 Tramadol Hcl 50 Mg Tablet PO 02/05/23 00:29 200 mg BID MITA Administration Discontinued Medications Generic Name Dose Route Start Last Admin Trade Name Freq PRN Reason Stop Dose Admin Fentanyl Citrate 50 mcg 01/05/23 17:23 01/05/23 17:32 Fentanyl Citrate 100 Mcg/2 Ml* Vial IM 01/05/23 17:24 50 mcg STAT ONE Administration Fentanyl Citrate Confirm 01/05/23 17:30 Fentanyl Citrate 100 Mcg/2 Ml* Vial Administered 01/05/23 17:31 Dose 100 mcg .ROUTE .STK-MED ONE Intake & Output (Last 24 hours) 01/04/23 01/05/23 01/06/23 01/07/23 11:59 11:59 11:59 11:59 Intake Total 600 455 Balance 600 455 Weight 69.9 kg Microbiology Results (Last 24 hours) 01/05/23 12:56 Urine, Void Urine Culture - Pending Laboratory Results (Last 24 hours) 01/06/23 01/05/23 01/05/23 Unknown 22:40 22:40 WBC 6.2 RBC 3.07 L Hgb 9.5 L Hct 30.3 L MCV 98.7 MCH 30.9 MCHC 31.4 L RDW 15.3 H Plt Count 206 MPV 9.4 Gran % 74.4 H Immature Gran % (Auto) 0.2 Nucleat RBC Rel Count 0.0 Eos # (Auto) 0.09 Immature Gran # (Auto) 0.01 Absolute Lymphs (auto) 0.95 L Absolute Monos (auto) 0.47 Absolute Nucleated RBC 0.00 Lymphocytes % 15.3 L Monocytes % 7.6 Eosinophils % 1.5 Basophils % 1.0 Absolute Granulocytes 4.61 Basophils # 0.06 Sodium 140 Potassium 4.3 Chloride 104 Carbon Dioxide 32 H Anion Gap 7.7 BUN 17 Creatinine 0.61 L Estimated GFR > 60.0 Glucose 97 Calcium 9.0 Total Bilirubin 0.40 AST 33 ALT 23 Alkaline Phosphatase 146 H Creatine Kinase 116 Serum Total Protein 6.6 Albumin 3.5 Vitamin B12 470 Folic Acid > 19.0 Urine Color Urine Appearance Urine pH Ur Specific [place] Urine Protein Urine Glucose (UA) Urine Ketones Urine Blood Urine Nitrite Urine Bilirubin Urine Urobilinogen Ur Leukocyte Esterase U Hyaline Cast (Auto) Urine Microscopic RBC Urine Microscopic WBC Ur Epithelial Cells Urine Bacteria Urine Culture Reflexed Influenza Type A Ag Influenza Type B Ag RSV (PCR) SARS-CoV-2 (PCR) 01/05/23 01/05/23 21:40 12:56 WBC RBC Hgb Hct MCV MCH MCHC RDW Plt Count MPV Gran % Immature Gran % (Auto) Nucleat RBC Rel Count Eos # (Auto) Immature Gran # (Auto) Absolute Lymphs (auto) Absolute Monos (auto) Absolute Nucleated RBC Lymphocytes % Monocytes % Eosinophils % Basophils % Absolute Granulocytes Basophils # Sodium Potassium Chloride Carbon Dioxide Anion Gap BUN Creatinine Estimated GFR Glucose Calcium Total Bilirubin AST ALT Alkaline Phosphatase Creatine Kinase Serum Total Protein Albumin Vitamin B12 Folic Acid Urine Color Yellow Urine Appearance Cloudy A Urine pH 6.5 Ur Specific [place] 1.020 Urine Protein Trace A Urine Glucose (UA) Negative Urine Ketones Negative Urine Blood Negative Urine Nitrite Positive A Urine Bilirubin Negative Urine Urobilinogen 1.0 A Ur Leukocyte Esterase Large A U Hyaline Cast (Auto) NONE SEEN Urine Microscopic RBC 21-50 A Urine Microscopic WBC 51-100 A Ur Epithelial Cells None Seen Urine Bacteria Many A Urine Culture Reflexed YES Influenza Type A Ag NEGATIVE Influenza Type B Ag NEGATIVE RSV (PCR) NEGATIVE SARS-CoV-2 (PCR) NEGATIVE Orders (Last 24 hours) Category Date Time Status Up With Assistance TID Activity 01/06/23 01:42 Active Call Admit Doctor for Orders ON ADMISSION Care 01/05/23 22:49 Active Catheter Care Record Q6H Care 01/06/23 11:59 Active Code Status Order ROUTINE Care 01/05/23 22:49 Active [facility] [Catheter-[place] [facility]] STAT Care 01/06/23 11:58 Active IV Care Q6H Care 01/05/23 22:49 Active IV Insertion ROUTINE Care 01/06/23 01:42 Active Nursing [Miscellaneous Nursing Order] ROUTINE Care 01/06/23 01:46 Active Nursing [Miscellaneous Nursing Order] ROUTINE Care 01/06/23 10:[address] in Observation ROUTINE Care 01/05/23 22:49 Active Family And Consumer Education Teacher/Discharge Plan ROUTINE Cons 01/06/23 01:47 Active Tele-Health Consult ROUTINE Cons 01/06/23 10:25 Active House Regular Diet Diet 01/06/23 Breakfast Active HEAD WITHOUT CONTRAST [CT] Stat Exams 01/05/23 22:49 Completed MRI C-SPINE W & WO CONTRAST [MRI] Routine Exams 01/06/23 10:16 Completed CBC W DIFF Stat Lab 01/05/23 22:40 Completed CK (IN-HOUSE) [CK-Creatinine Phosphokinase] Stat Lab 01/05/23 22:40 Completed CMP Stat Lab 01/05/23 22:40 Completed COVID/FLU/RSV Panel Stat Lab 01/05/23 21:40 Completed Acetaminophen 650 mg [Feverall 650 mg] Med 01/06/23 01:42 Active 650 mg MA Q4H PRN PRN Apixaban [Eliquis 2.5 mg Tablet] Med 01/06/23 00:27 Active 5 mg PO BID Ceftriaxone 1 GM/50 ML PREMIX* [ROCEPHIN 1 Gm-D5w 50 ml Med 01/06/23 20:00 Ordered Bag] 1 g in 50 ml IV Q24H10 Docusate Sodium 100 mg [Docusate Sodium 100 MG] Med 01/06/23 01:42 Active 100 mg PO BIDPRN PRN Duloxetine HCl 30 mg [Cymbalta 30 MG Capsule] Med 01/06/23 00:28 Active 60 mg PO BID Famotidine 20 mg [Pepcid 20 MG] Med 01/06/23 10:00 Active 20 mg PO BID Lorazepam 2 mg/1 ml [Ativan 2 MG/1 ML VIAL] Med 01/06/23 14:50 Active 1 mg IV Q6H PRN PRN Magnesium Hydroxide 30 ml [Milk of Magnesia 30 ml Med 01/06/23 01:42 Active ] 30 ml PO HS PRN PRN NaCl 0.9% 1000 ml [Sodium Chloride 0.9% 1000 ML] 1,000 Med 01/06/23 01:45 Active ml IV 50 mls/hr Ondansetron HCl 4 mg/2 ml [Zofran 4 MG/2 ML VIAL] Med 01/06/23 01:42 Active 4 mg IV Q6H PRN PRN Polyethylene Glycol 3350 17 gm [Miralax Powder 17GM Med 01/06/23 10:00 Active PACKET] 17 gm PO DAILY Tamsulosin HCl 0.4 mg [Flomax 0.4 MG] Med 01/06/23 00:29 Active 0.4 mg PO BID Temazepam 15 mg [Restoril 15 MG] Med 01/06/23 00:29 Active 30 mg PO HS Tramadol HCl 50 mg [Ultram 50 mg] Med 01/06/23 00:30 Active 200 mg PO BID OT Eval and Treat ( Order) ROUTINE OT 01/06/23 01:42 Active PT Eval & Treat ( Order) ONCE PT 01/06/23 01:[address] Eval & Treat ( Order) ROUTINE ST 01/06/23 01:44 Active Patient Care Notes (Last 24 hours) 01/06/23 18:59 Nursing Note by Renae Adhikari Teleneurology began 1831 till 1851 Initialized on 01/06/23 18:59 - END OF NOTE 01/06/23 16:18 Nursing Note by Renae Adhikari pt off the unit for 2nd attempt of MRI Initialized on 01/06/23 16:18 - END OF NOTE 01/06/23 14:11 Nursing Note by Renae Adhikari pt off the unit for MRI at this time Initialized on 01/06/23 14:11 - END OF NOTE 01/06/23 10:39 Nursing Note by Ely Gutierrez REQUEST FOR TELENEUROLOGY CONSULT SUBMITTED AT THIS TIME VIA [employer]. CONNECT ID # [id number] Initialized on 01/06/23 10:39 - END OF NOTE 01/06/23 10:27 Case Management Note by Ana Rosa Gonzáles DR. NOTIFIED OF PHYSICAL THERAPY'S CONCERN FOR SPINAL INJURY D/T NEW DIFFICULTY WITH UPPER EXTREMITY MOVEMENTS AND C/O "ELECTRIC SHOCK PAIN" WITH ANY MOVEMENT IN HIS NECK AND WITH CHEWING. NEW ORDERS FOR MRI OF CSPINE, NEURO CONSULT AND FOR PATIENT TO BE PLACED IN A CSPINE COLLAR Initialized on 01/06/23 10:27 - END OF NOTE 01/06/23 10:27 Case Management Note by Ana Rosa Gonzáles NOTIFIED OF CSPINE COLLAR ORDERED FOR PATIENT Initialized on 01/06/23 10:27 - END OF NOTE 01/06/23 02:37 Nursing Admission Note by Nury Lopez [id number] Received pt to room 116 via stretcher from the ED. Assisted pt to be bed. Pt requires total assistance. Pt aao x 4 resp even, unlabored on ra. Pt complains of generalized pain 10/10. Assisted with pericare. pt is incont of urine, however per pt he does take laxatives daily, but only has a bowel movement every 3-4 days. Received a tele call from Dr Aguero and assisted with physical assessment. Pt has limited mobility in bilateral upper extremities and extreme weakness noted. Pt has limited mobility in bilateral lower extremities and contractures noted. 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 Despite the pt admitting to his having dememtia, he states that she is the only person he has that can make decisions if he is unable to make decisions in the event he is unable to care from himself. Pt wishes to remain full code at this time. pt has noted wounds to bilaterl feet, which were photographed and documented in the chart. Pt is able to make his needs known, but does state that he his limited resources at home. 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 pt repositioned for comfort, call light within reach, white board updated. all questions and concerns where addressed with both md and story writer. Initialized on 01/06/23 02:37 - END OF NOTE Code(s): M47.22 - OTHER SPONDYLOSIS WITH RADICULOPATHY, CERVICAL REGION (2) Fall Current Visit: Yes Status: Acute Code(s): W19.XXXA - UNSPECIFIED FALL, INITIAL ENCOUNTER (3) Fall with injury Current Visit: No Status: Acute Code(s): W19.XXXA - UNSPECIFIED FALL, INITIAL ENCOUNTER (4) Multiple contusions Current Visit: No Status: Acute Code(s): T07.XXXA - UNSPECIFIED MULTIPLE INJURIES, INITIAL ENCOUNTER
--- NOTE | 2023-01-06 22:09 | PCM.DS ---
Discharge Summary Date of Admission: 01/05/23 22:47 Admitting Physician: LUIZA SEYMOUR MD Consults: Consults on Case 01/06/23 10:25 Tele-Health Consult ROUTINE Primary Care Provider: MICHELLE ESPINAL Allergies Allergies No Known Drug Allergies Allergy (Verified 01/05/23 16:10) Hospital Summary - Hospital Course Hospital Course: Pt is a 72 yo male pt of Dr. Espinal with PMHx CAD (hx CABG), anemia, atrial fibrillation, BPH with hx urinary retention, chronic back pain (s/p multiple surgeries) and chronic recurrent falls who was admitted through ER early this morning with pain s/p fall. CT head and XR neck were negative, along with xrays of multiple extremities. He had teleneurology consult this evening and he was found to have basically nonexistent hand lens edge grinder machine bilaterally, some numbness in the dorsal aspect of the forearms, and legs that now appear contractured, with his LE strength limited to some toe movement. He is an extremely difficult historian. He was apparently standing on his crutches on Thursday, but possibly Thursday, and lost his balance and fell backwards. At baseline, he is in a wheelchair for distances but on crutches for short distances. His balance has been worse over the past 7-10 days. Per pt, he has been on crutches/wheelchair for the past 4 years, since two of his back surgeries (fusions) - he states he had 6 hour surgeries x 2, two days apart. He initially said he had 5 back surgeries in 1979, then says he had gastric bypass in 1978 and in 1979 for weighing over 400lb. Says he's had 22 surgeries, but then names 10 different surgeries and says that's probably all. I found consult notes from [address] [place] - pt apparently had OLIF from L1 to the sacrum and initially was quite debilitated but with rehab was able to ambulate 300 feet. Prior to this surgery, he was using 1 crutch to ambulate. He has a montgomery catheter currently, but tells me he didn't have one at home, then tells me he did have one at home for a month and it came out a week ago, then tells me the catheter was removed 4 days ago. He says he was treated for a UTI 3 weeks ago. He tells me he had a temp of 101 here in the hospital, but no such elevated temperature is recorded. 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 Per a friend, who came into the room, he falls several times a day. Pt has wounds on his feet that he says are from running over his feet with the wheelchair. Currently he denies any pain, then says he has a little R leg pain. I spoke with Dr. Nolan, Neurosurgery at [facility], thank you, and we will transfer the patient up to 's ER under Dr. Nolan. He will remain in a C- collar. He will have a CT cervical spine stat here prior to transfer. - Vitals & Intake/Output Vital Signs: Vital Signs Temperature 97.9 F 01/06/23 20:00 Pulse Rate 67 01/06/23 20:00 Respiratory Rate 16 01/06/23 20:00 Blood Pressure 98/54 01/06/23 20:00 O2 Sat by Pulse Oximetry 95 01/06/23 20:00 Intake & Output: Intake & Output 01/04/23 01/05/23 01/06/23 01/07/23 11:59 11:59 11:59 11:59 Intake Total 600 455 Balance 600 455 Weight 69.9 kg - Lab Result Diagrams: 01/05/23 22:40 01/05/23 22:40 Lab Results-Last 24 Hrs: Lab Results-Last 24 Hours 01/05/23 01/05/23 01/05/23 Range/Units 12:56 21:40 22:40 WBC 6.2 (4.0-10.5) x10^3/uL RBC 3.07 L (4.1-5.6) x10^6/uL Hgb 9.5 L (12.5-18.0) g/dL Hct 30.3 L (42-50) % MCV 98.7 (78-100) fL MCH 30.9 (26-32) pg MCHC 31.4 L (32-36) g/dL RDW 15.3 H (11.5-14.0) % Plt Count 206 (150-450) x10^3/uL MPV 9.4 (7.5-11.0) fL Gran % 74.4 H (36.0-66.0) % Immature Gran % (Auto) 0.2 (0.00-0.4) % Nucleat RBC Rel Count 0.0 (0.00-0.1) % Eos # (Auto) 0.09 (0-0.5) x10^3/uL Immature Gran # (Auto) 0.01 (0.00-0.03) x10^3u/L Absolute Lymphs (auto) 0.95 L (1.0-4.6) x10^3/uL Absolute Monos (auto) 0.47 (0.0-1.3) x10^3/uL Absolute Nucleated RBC 0.00 (0.00-0.01) x10^3u/L Lymphocytes % 15.3 L (24.0-44.0) % Monocytes % 7.6 (0.0-12.0) % Eosinophils % 1.5 (0.00-5.0) % Basophils % 1.0 (0.0-0.4) % Absolute Granulocytes 4.61 (1.4-6.9) x10^3/uL Basophils # 0.06 (0-0.4) x10^3/uL Sodium (137-145) mmol/L Potassium (3.5-5.1) mmol/L Chloride (98-107) mmol/L Carbon Dioxide (22-30) mmol/L Anion Gap (5-15) MEQ/L BUN (9-20) mg/dL Creatinine (0.66-1.25) mg/dL Estimated GFR ML/MIN Glucose (74-106) mg/dL Calcium (8.4-10.2) mg/dL Total Bilirubin (0.2-1.3) mg/dL AST (17-59) U/L ALT (0-50) U/L Alkaline Phosphatase (38-126) U/L Creatine Kinase (55-170) U/L Serum Total Protein (6.3-8.2) g/dL Albumin (3.5-5.0) g/dL Vitamin B12 (239-931) pg/mL Folic Acid (2.76 - >20) ng/mL Urine Color Yellow (Yellow) Urine Appearance Cloudy A (Clear) Urine pH 6.5 (4.6-8.0) Ur Specific [place] 1.020 (1.005-1.030) Urine Protein Trace A (Negative) Urine Glucose (UA) Negative (Negative) mg/dL Urine Ketones Negative (Negative) Urine Blood Negative (Negative) Urine Nitrite Positive A (Negative) Urine Bilirubin Negative (Negative) Urine Urobilinogen 1.0 A (0.2) mg/dL Ur Leukocyte Esterase Large A (Negative) U Hyaline Cast (Auto) NONE SEEN (0-2) /LPF Urine Microscopic RBC 21-50 A (0-5) /HPF Urine Microscopic WBC 51-100 A (0-5) /HPF Ur Epithelial Cells None Seen (None Seen) /HPF Urine Bacteria Many A (None Seen) /HPF Urine Culture Reflexed YES (NO) Influenza Type A Ag NEGATIVE (NEGATIVE) Influenza Type B Ag NEGATIVE (NEGATIVE) RSV (PCR) NEGATIVE (NEGATIVE) SARS-CoV-2 (PCR) NEGATIVE (NEGATIVE) 01/05/23 01/06/23 Range/Units 22:40 Unknown WBC (4.0-10.5) x10^3/uL RBC (4.1-5.6) x10^6/uL Hgb (12.5-18.0) g/dL Hct (42-50) % MCV (78-100) fL MCH (26-32) pg MCHC (32-36) g/dL RDW (11.5-14.0) % Plt Count (150-450) x10^3/uL MPV (7.5-11.0) fL Gran % (36.0-66.0) % Immature Gran % (Auto) (0.00-0.4) % Nucleat RBC Rel Count (0.00-0.1) % Eos # (Auto) (0-0.5) x10^3/uL Immature Gran # (Auto) (0.00-0.03) x10^3u/L Absolute Lymphs (auto) (1.0-4.6) x10^3/uL Absolute Monos (auto) (0.0-1.3) x10^3/uL Absolute Nucleated RBC (0.00-0.01) x10^3u/L Lymphocytes % (24.0-44.0) % Monocytes % (0.0-12.0) % Eosinophils % (0.00-5.0) % Basophils % (0.0-0.4) % Absolute Granulocytes (1.4-6.9) x10^3/uL Basophils # (0-0.4) x10^3/uL Sodium 140 (137-145) mmol/L Potassium 4.3 (3.5-5.1) mmol/L Chloride 104 (98-107) mmol/L Carbon Dioxide 32 H (22-30) mmol/L Anion Gap 7.7 (5-15) MEQ/L BUN 17 (9-20) mg/dL Creatinine 0.61 L (0.66-1.25) mg/dL Estimated GFR > 60.0 ML/MIN Glucose 97 (74-106) mg/dL Calcium 9.0 (8.4-10.2) mg/dL Total Bilirubin 0.40 (0.2-1.3) mg/dL AST 33 (17-59) U/L ALT 23 (0-50) U/L Alkaline Phosphatase 146 H (38-126) U/L Creatine Kinase 116 (55-170) U/L Serum Total Protein 6.6 (6.3-8.2) g/dL Albumin 3.5 (3.5-5.0) g/dL Vitamin B12 470 (239-931) pg/mL Folic Acid > 19.0 (2.76 - >20) ng/mL Urine Color (Yellow) Urine Appearance (Clear) Urine pH (4.6-8.0) Ur Specific [place] (1.005-1.030) Urine Protein (Negative) Urine Glucose (UA) (Negative) mg/dL Urine Ketones (Negative) Urine Blood (Negative) Urine Nitrite (Negative) Urine Bilirubin (Negative) Urine Urobilinogen (0.2) mg/dL Ur Leukocyte Esterase (Negative) U Hyaline Cast (Auto) (0-2) /LPF Urine Microscopic RBC (0-5) /HPF Urine Microscopic WBC (0-5) /HPF Ur Epithelial Cells (None Seen) /HPF Urine Bacteria (None Seen) /HPF Urine Culture Reflexed (NO) Influenza Type A Ag (NEGATIVE) Influenza Type B Ag (NEGATIVE) RSV (PCR) (NEGATIVE) SARS-CoV-2 (PCR) (NEGATIVE) - Radiology Exams Ordered Rad Exams-Entire Visit: Radiology Procedures Category Date Time Status CERVICAL SPINE (2 OR 3 VIEW) Stat Exams 01/05/23 16:59 Completed FEMUR Stat Exams 01/05/23 17:02 Completed FEMUR Stat Exams 01/05/23 17:04 Completed FOREARM Stat Exams 01/05/23 17:05 Completed HEAD WITHOUT CONTRAST [CT] Stat Exams 01/05/23 22:49 Completed LOWER LEG Stat Exams 01/05/23 17:01 Completed LOWER LEG Stat Exams 01/05/23 17:04 Completed LUMBAR LIMITED (2 OR 3 VIEWS) Stat Exams 01/05/23 16:59 Completed MRI C-SPINE W & WO CONTRAST [MRI] Routine Exams 01/06/23 10:16 Completed SHOULDER Stat Exams 01/05/23 17:01 Completed SHOULDER Stat Exams 01/05/23 17:05 Completed THORACOLUMBAR SPINE Stat Exams 01/05/23 17:00 Completed - Procedures and Test Procedures and Tests throughout Hospitalization: Therapy Orders & Screens 01/06/23 01:42 OT Eval and Treat ( Order) ROUTINE Comment: Consulting Provider: Physician Instructions: Reason For Exam: Diagnosis: Weakness PT Eval & Treat ( Order) ONCE Reason for Eval:: DEBILITY, FREQUENT FALLS Diagnosis: Weakness 01/06/23 01:44 ST Eval & Treat (MD Order) ROUTINE Comment: Physician Instructions: Reason For Exam: Evaluate: Yes Treat: Yes Reason for Eval: RULE OUT DYSPHAGIA Diagnosis: Weakness Discharge Exam General Appearance: no apparent distress, alert Neurologic Exam: cooperative, wire setter II-XII nml as tested, normal mood/affect, motor weakness (UE proximal strength at least 3/5, but lens edge grinder machine are non-existent; hands are mildly contractured bilat. LE - only able to wiggle toes bilat, R>L), other (alert to place. date is "January 08, 2023"), No facial droop, No slurred speech, No dysarthria Eye Exam: eyes nml inspection Ears, Nose, Throat Exam: moist mucous membranes Neck Exam: other (c-collar in place) Respiratory Exam: normal breath sounds, lungs clear, No crackles/rales, No rhonchi, No wheezing Cardiovascular Exam: regular rate/rhythm, normal heart sounds, No murmur Gastrointestinal/Abdomen Exam: soft, normal bowel sounds, other (says his abdomen is numb from epigastrum), No tenderness Extremity Exam: other (legs are contractured with the L leg scissored over the R) Skin Exam: warm, dry, other (there are various small lacerations/healing scabs on the LE bilat. edema feet bilat, trace.) Wound Assessment: Skin/Wound Assessment Wound/Incision Assessment Start: 01/06/23 00:54 Text: Status: Active Freq: Q6H Protocol: Document 01/06/23 14:00 RB (Rec: 01/06/23 14:18 RB [id number]) Wound Photo Photo Taken Yes Date: 01/06/23 Time: 00:45 Final Diagnosis/Problem List - Final Discharge Diagnosis/Problem (1) Paralysis Current Visit: Yes Status: Acute Priority: High Assessment & Plan: Quite concerning - per teleneurologist, needs CT myelogram of the neck but we are unable to provide this here. Transferring to ER under Dr. Nolan, neurosurgery, thank you. Code(s): G83.9 - PARALYTIC SYNDROME, UNSPECIFIED (2) Fall Current Visit: Yes Status: Acute Assessment & Plan: has many falls. ER staff discussed LTCF placement for pt and his , but in the room he tells me he'd like to get away from using the wheelchair and back to using crutches "when I get stronger." Code(s): W19.XXXA - UNSPECIFIED FALL, INITIAL ENCOUNTER (3) Urinary retention Current Visit: Yes Status: Chronic Assessment & Plan: with BPH. Code(s): R33.9 - RETENTION OF URINE, UNSPECIFIED (4) Constipation Current Visit: Yes Status: Chronic Code(s): K59.00 - CONSTIPATION, UNSPECIFIED (5) Intractable pain Current Visit: Yes Status: Resolved Assessment & Plan: currently not in much pain Code(s): R52 - PAIN, UNSPECIFIED (6) Megaloblastic anemia Current Visit: No Status: Chronic Code(s): D53.1 - OTHER MEGALOBLASTIC ANEMIAS, NOT ELSEWHERE CLASSIFIED (7) UTI (urinary tract infection) Current Visit: No Status: Acute Assessment & Plan: given 1 g IV rocephin here. Code(s): N39.0 - URINARY TRACT INFECTION, SITE NOT SPECIFIED (8) Chronic back pain Current Visit: Yes Status: Chronic Assessment & Plan: Had surgery 2016 with AWAIS Smith from L1 to sacrum, per our records, and did have good LE strength at that time (did have some paresthesia of feet). Code(s): M54.9 - DORSALGIA, UNSPECIFIED; G89.29 - OTHER CHRONIC PAIN (9) CAD (coronary artery disease) Current Visit: Yes Status: Chronic Code(s): I25.10 - ATHSCL HEART DISEASE OF [place] CORONARY ARTERY W/O ANG PCTRS (10) Atrial fibrillation Current Visit: Yes Status: Chronic Assessment & Plan: on Eliquis Code(s): I48.91 - UNSPECIFIED ATRIAL FIBRILLATION - Discharge Disposition: DC TO OTHER HOSP Condition: Serious Prescriptions: No Action Temazepam 30 mg PO HS Tamsulosin HCl 0.4 mg PO BID Tramadol HCl 200 mg PO BID Apixaban [Eliquis] 5 mg PO BID Oxybutynin Chloride [Oxybutynin Chloride ER] 5 mg PO TID Duloxetine HCl 60 mg PO BID Follow up with: MICHELLE ESPINAL [Primary Care Provider] - Call for Appointment
[2023-01-07] MEDS ORDERED: HYDROCODONE-ACETAMIN 10-325 MG PO ONE (01:02)
[2023-01-07 01:26] VITALS: BP 122/57; PULSE 70; O2SAT 97
--- NOTE | 2023-01-07 09:04 | XRAY ---
Indication: Pain. Status post fall. Multiple contiguous axial images obtained through the cervical spine. Sagittal and coronal reformatted images obtained. Comparison: June 21, 2021. More recent cervical radiograph and MRI C-spine one day earlier. Osseous structures remain demineralized. Again anatomic variant for nonunited posterior arch C1. Axial images negative for acute fracture or suspicious bony lesions. There remains moderate/advanced multilevel degenerative endplate spurring and multilevel bilateral degenerative facet hypertrophy. Greatest extent again seen at C4-C6 levels with subsequent spinal canal stenosis. Sagittal and coronal reformatted images again demonstrates normal cervical alignment with multilevel disc space loss. No acute compression fracture, subluxation, or jumped facet. Normal appearing craniocervical junction. Visualized noncontrasted soft tissues again demonstrates mild bilateral carotid calcifications. Impression: Grossly stable osteopenia and multilevel degenerative changes. No new/acute abnormalities. Comment: Preliminary interpretation made by [facility]. No critical discrepancy.
== END 2023-01-07 01:20 ==
LOC: ED 16:02 → MED SURG 22:47
PROVIDERS: ADMIT Internal Medicine; ATTEND General Practice
DX: G83.9 Paralytic syndrome, unspecified (principal); W19.XXXA Unspecified fall, initial encounter; R33.9 Retention of urine, unspecified; K59.00 Constipation, unspecified; D53.1 Other megaloblastic anemias, not elsewhere classified; N39.0 Urinary tract infection, site not specified; M54.9 Dorsalgia, unspecified; I25.10 Atherosclerotic heart disease of native coronary artery without angina pectoris; I48.91 Unspecified atrial fibrillation; I10 Essential (primary) hypertension; E78.5 Hyperlipidemia, unspecified; M47.22 Other spondylosis with radiculopathy, cervical region; Z79.01 Long term (current) use of anticoagulants; Z79.899 Other long term (current) drug therapy; Z20.828 Contact with and (suspected) exposure to other viral communicable diseases; Z95.1 Presence of aortocoronary bypass graft; Z98.84 Bariatric surgery status; Z72.0 Tobacco use; Z91.81 History of falling
CPT/HCPCS: 0241U; 36415; 70450; 72040; 72080; 72100; 72125; 72156; 73030; 73090; 73552; 73590; 80053; 81001; 82550; 82607; 82746; 85025; 87086; 96372; 97161; 99284; G0378; 87077; 87186; J0696; J2060; J3010; L0172; A9270-GY

== ENCOUNTER 2023-03-31 14:39 | Emergency (ER) | payer MEDICARE ==
--- NOTE | 2023-03-31 14:44 | ERPHSYRPT ---
- History of Present Illness Time Seen by Provider: 03/31/23 14:44 Source: patient, EMS Exam Limitations: clinical condition Physician History: This is a 73-year-old white male patient who is a resident at local [facility] facility and has functional quadriplegia. He has Cavazos catheter in place, gastric tube in place as well as chronic use of a cervical collar secondary to severe, chronic cervical spine spondylosis and presents to the emergency department with altered mental status over the last couple of days. Patient is on Eliquis, has coronary disease, has hyperlipidemia, hypertension, sleep apnea, arthritis, depression, anxiety, peripheral neuropathy and prostate issues. Patient presents emergency department with a temperature of 104 F. Patient also presents with a wound VAC in place for coccygeal decubitus ulcer. Timing/Duration: day(s) (Creasing confusion) Severity: moderate Character of Deficits: none (No new deficits) Deficits: bed-ridden Baseline/Normal Cognition: alert but confused Current Cognition: alert but confused Baseline Gait: unable to walk Associated Symptoms: confusion, fever Allergies/Adverse Reactions: No Known Drug Allergies Allergy (Verified 03/31/23 15:40) Home Medications: Tamsulosin HCl 0.4 mg PO BID 11/08/18 [History] Temazepam 30 mg PO HS 11/08/18 [History] Apixaban [Eliquis] 5 mg PO BID 06/21/21 [History] Duloxetine HCl 60 mg PO BID 06/21/21 [History] Oxybutynin Chloride [Oxybutynin Chloride ER] 5 mg PO TID 06/21/21 [History] Tramadol HCl 200 mg PO BID 06/21/21 [History] Hx Tetanus, Diphtheria Vaccination/Date Given: Yes Hx Influenza Vaccination/Date Given: Yes Hx Pneumococcal Vaccination/Date Given: Yes Travel Risk - International Travel Have you traveled outside of the country in past 3 weeks: No - Coronavirus Screening Are you exhibiting any of the following symptoms?: Yes Symptoms: Fever Close contact with a COVID-19 positive Pt in past 14-21 Days: No - Vaccine Status Have you recieved a Covid-19 vaccination: Yes [place] Helper: Moderna - Vaccination Dates Date of 2cond Vaccination (if applicable): UNK - Review of Systems Constitutional: Fever Eyes: No Symptoms Ears, Nose, & Throat: No Symptoms Respiratory: No Symptoms Cardiac: No Symptoms Abdominal/Gastrointestinal: No Symptoms Genitourinary Symptoms: No Symptoms Musculoskeletal: No Symptoms Skin: Decubiti (Coccygeal region) Neurological: Other (Increased confusion) Psychological: No Symptoms Endocrine: No Symptoms Hematologic/Lymphatic: No Symptoms Immunological/Allergic: No Symptoms All Other Systems: Reviewed and Negative - Past Medical History Pertinent Past Medical History: Yes Neurological History: Peripheral Neuropathy ENT History: No Pertinent History Cardiac History: Coronary Artery Disease, High Cholesterol, Hypertension Respiratory History: Sleep Apnea, Other Endocrine Medical History: No Pertinent History Musculoskeletal History: Arthritis, Degenerative Disk Disease GI Medical History: Hemorrhoids History: No Pertinent History Psycho-Social History: Anxiety, Depression Male Reproductive Disorders: Prostate Problems Other Medical History: O.A TO BILATERAL SHOULERS, KNEES, BACK, NECK - Past Surgical History Past Surgical History: Yes Neuro Surgical History: No Pertinent History Cardiac: CABG Respiratory: No Pertinent History Gastrointestinal: No Pertinent History Genitourinary: No Pertinent History Musculoskeletal: Joint Replacement, Orthopedic Surgery, Other Male Surgical History: No Pertinent History Other Surgical History: GASTRIC BYPASS x 2 , shoulder surgeries 1978 and 1979, left knee replaced and rt hip, multiple lower back surgeries, left carpel tunnel sugery 1989, R ankle surgery x3 7 1965 and 1968 - Social History Smoking Status: Current every day smoker How long have you smoked: marijuana Exposure to second hand smoke: No Alcohol Use: None Drug Use: marijuana Patient Lives Alone: No Significant Family History: no pertinent family hx - Nursing Vital Signs Nursing Vital Signs: Initial Vital Signs Temperature 104 F 03/31/23 14:41 Pulse Rate 129 H 03/31/23 14:41 Respiratory Rate 20 03/31/23 14:41 Blood Pressure 76/49 03/31/23 14:41 O2 Sat by Pulse Oximetry 90 L 03/31/23 14:41 Pain Scale Pain Intensity 0 - [place] Coma Scale Best Eye Response ([place]): (4) open spontaneously Best Verbal Response ([place]): (4) confused conversation Best Motor Response ([place]): (5) localizes to pain [place] Total: 13 - Physical Exam General Appearance: mild distress, lethargy (Rouses swiftly) Eye Exam: bilateral eye: normal inspection, PERRL, EOMI Ears, Nose, Throat Exam: dry mucous membranes Neck Exam: normal inspection, non-tender, supple, full range of motion Respiratory: normal breath sounds, lungs clear, airway intact, No chest tenderness, No respiratory distress Cardiovascular: tachycardia Gastrointestinal: soft, normal bowel sounds, other (Gastric tube in place), No tenderness Back Exam: other (Wound VAC in the coccygeal region) Extremity Exam: pelvis stable Mental Status: lethargy (Arouses quickly) 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 Exam: normal hearing, PERRL, tongue midline Skin Exam: normal color, warm, dry, decubitus (Coccygeal region with wound VAC in place) O2 Delivery: Room Air - Course Nursing assessment & vital signs reviewed: Yes Ordered Tests: Active Orders 24 hr Category Date Time Status Zigzag Elastic Attacher STAT Care 03/31/23 14:52 Active Catheter-[place] Cavazos STAT Care 03/31/23 16:16 Active EKG-ER Only STAT Care 03/31/23 14:51 Active IV Insertion STAT Care 03/31/23 14:51 Active IV Insertion-2nd Peripheral STAT Care 03/31/23 15:18 Active NPO (ED) STAT Care 03/31/23 14:51 Active POCT Glucose Check STAT Care 03/31/23 14:51 Active Pulse Oximetry (ED) STAT Care 03/31/23 14:51 Active CHEST 1 VIEW (PORTABLE) Stat Exams 03/31/23 16:16 Completed HEAD WITHOUT CONTRAST [CT] Stat Exams 03/31/23 14:52 Completed ABG [ARTERIAL BLOOD GASES] Stat Lab 03/31/23 17:23 Completed ACETAMINOPHEN Stat Lab 03/31/23 15:00 Completed BLOOD CULTURE Stat Lab 03/31/23 15:10 Received BMP Stat Lab 03/31/23 18:36 Completed CBC W DIFF Stat Lab 03/31/23 15:00 Completed CBC W DIFF Stat Lab 03/31/23 18:36 Completed CMP Stat Lab 03/31/23 16:33 Completed CULTURE,URINE Stat Lab 03/31/23 14:54 Received ETHYL ALCOHOL Stat Lab 03/31/23 15:00 Completed Lactic Acid Stat Lab 03/31/23 17:23 Completed Manual Differential NC Stat Lab 03/31/23 15:00 Completed Manual Differential NC Stat Lab 03/31/23 18:36 Completed POCT GLUCOSE Stat Lab 03/31/23 17:03 Completed POCT GLUCOSE Stat Lab 03/31/23 17:13 Completed POCT GLUCOSE Stat Lab 03/31/23 18:02 Completed POCT GLUCOSE Stat Lab 03/31/23 18:12 Completed POCT GLUCOSE Stat Lab 03/31/23 18:40 Completed POCT GLUCOSE Stat Lab 03/31/23 19:01 Completed POCT GLUCOSE Stat Lab 03/31/23 19:53 Completed SALICYLATE Stat Lab 03/31/23 15:00 Completed UA W/RFX UR CULTURE Stat Lab 03/31/23 14:54 Completed Urine Triage Profile Stat Lab 03/31/23 14:54 Completed Medication Summary Generic Name Dose Route Start Last Admin Trade Name Abhijit PRN Reason Stop Dose Admin Sodium Chloride 1,000 mls @ 100 mls/hr 03/31/23 15:00 03/31/23 16:19 Sodium Chloride 0.9% 1000 Ml IV 04/30/23 14:59 Infused .Q10H MTIA Infusion Norepinephrine/Dextrose 8 mg in 250 mls @ 15 mls/hr 03/31/23 16:54 03/31/23 16:57 Norepinephrine 8 Mg/250 [id number]-[id number] IV 04/30/23 16:53 8 mcg/min .[id number] PRN 15 mls/hr HYPOTENSION Administration Protocol 8 MCG/MIN Dextrose/Sodium Chloride 1,000 mls @ 100 mls/hr 03/31/23 17:30 03/31/23 18:19 Dextrose 5%-Ns Iv Solution 1000 Ml IV 04/30/23 17:29 150 mls/hr .Q10H MITA Infusion Sodium Chloride 1,000 mls @ 250 mls/hr 03/31/23 17:30 03/31/23 17:28 Sodium Chloride 0.9% 1000 Ml IV 04/30/23 17:29 250 mls/hr .Q4H MITA Administration Discontinued Medications Generic Name Dose Route Start Last Admin Trade Name Abhijit PRN Reason Stop Dose Admin Acetaminophen 1,000 mg 03/31/23 15:06 03/31/23 16:11 Acetaminophen 1,000 Mg/100 Ml Ml IV 03/31/23 15:07 1,000 mg STAT ONE Administration Dextrose 50 ml 03/31/23 17:04 03/31/23 17:04 Dextrose 50%-Water 50 Ml Abboject IV 03/31/23 17:05 50 ml STAT ONE Administration Dextrose Confirm 03/31/23 17:04 Dextrose 50%-Water 50 Ml Abboject Administered 03/31/23 17:05 Dose 50 ml IV .STK-MED ONE Dextrose 50 ml 03/31/23 18:05 03/31/23 18:06 Dextrose 50%-Water 50 Ml Abboject IV 03/31/23 18:06 50 ml STAT ONE Administration Dextrose Confirm 03/31/23 18:06 Dextrose 50%-Water 50 Ml Abboject Administered 03/31/23 18:07 Dose 50 ml IV .STK-MED ONE Sodium Chloride 1,000 mls @ 999 mls/hr 03/31/23 16:16 03/31/23 17:25 Sodium Chloride 0.9% 1000 Ml IV 03/31/23 17:16 Infused .Q1H1M STA Infusion Meropenem 1 gm/ Sodium 100 mls @ 200 mls/hr 03/31/23 17:19 03/31/23 17:27 Chloride IV 03/31/23 17:48 200 mls/hr STAT ONE Administration Sodium Chloride Confirm 03/31/23 17:20 Sodium Chloride 100ml Mini-Bag Plus Administered 03/31/23 17:21 Dose 100 mls @ ud IV .STK-MED ONE Meropenem Confirm 03/31/23 17:20 Meropenem 1 Gm Vial Administered 03/31/23 17:21 Dose 1 gm IV .STK-MED ONE Lab/Rad Data: Laboratory Result Diagrams 03/31/23 18:36 03/31/23 18:36 Laboratory Results 03/31/23 03/31/23 03/31/23 Range/Units 19:53 19:01 18:40 WBC (4.0-10.5) x10^3/uL RBC (4.1-5.6) x10^6/uL Hgb (12.5-18.0) g/dL Hct (42-50) % MCV (78-100) fL MCH (26-32) pg MCHC (32-36) g/dL RDW (11.5-14.0) % Plt Count (150-450) x10^3/uL MPV (7.5-11.0) fL Segmented Neutrophils (36.-66.) % Band Neutrophils (0.0-2.0) % Lymphocytes (Manual) (24-44) % Monocytes (Manual) (0.0-12.0) % Atypical Lymphocytes % Dohle Bodies Platelet Estimate (NORMAL) RBC Morphology Polychromasia Anisocytosis Puncture Site pCO2 (35-45) mmHg pO2 (75-100) mmHg Base Excess (-2.0-2.0) O2 Saturation (94-100) g/dF ABG pH (7.35-7.45) ABG HCO3 (22-28) ABG O2 Sat (Measured) (95-100) % Genaro Test A-a Gradient a/A Ratio Hemoglobin Carboxyhemoglobin (0.0-6.9) % THgb Methemoglobin (1.4-1.5) % Temperature C POC O2 Flow Rate % Sodium (137-145) mmol/L Potassium (3.5-5.1) mmol/L Chloride (98-107) mmol/L Carbon Dioxide (22-30) mmol/L Anion Gap (5-15) MEQ/L BUN (9-20) mg/dL Creatinine (0.66-1.25) mg/dL Estimated GFR ML/MIN Glucose (74-106) mg/dL POC Glucometer 82 99 96 (50 to 500) mg/dL Lactic Acid (0.4-2.0) Calcium (8.4-10.2) mg/dL Total Bilirubin (0.2-1.3) mg/dL AST (17-59) U/L ALT (0-50) U/L Alkaline Phosphatase (38-126) U/L Ammonia (9-30) umol/L Serum Total Protein (6.3-8.2) g/dL Albumin (3.5-5.0) g/dL Urine Color (Yellow) Urine Appearance (Clear) Urine pH (4.6-8.0) Ur Specific [place] (1.005-1.030) Urine Protein (Negative) Urine Glucose (UA) (Negative) mg/dL Urine Ketones (Negative) Urine Blood (Negative) Urine Nitrite (Negative) Urine Bilirubin (Negative) Urine Urobilinogen (0.2) mg/dL Ur Leukocyte Esterase (Negative) U Hyaline Cast (Auto) (0-2) /LPF Urine Microscopic RBC (0-5) /HPF Urine Microscopic WBC (0-5) /HPF Ur Epithelial Cells (None Seen) /HPF Urine Bacteria (None Seen) /HPF Urine Culture Reflexed (NO) Salicylates (2-20) mg/dL Urine Opiates Level (NEGATIVE) Ur Methadone (NEGATIVE) Acetaminophen (10-30) ug/ml Urine Barbiturates (NEGATIVE) Ur Phencyclidine (PCP) (NEGATIVE) Urine Amphetamine (NEGATIVE) U Benzodiazepine Level (NEGATIVE) Urine Cocaine (NEGATIVE) Urine Marijuana (THC) (NEGATIVE) Ethyl Alcohol (0-10) mg/dL ABO Group Rh Factor Antibody Screen (NEGATIVE) Crossmatch (COMPATIBLE) 03/31/23 03/31/23 03/31/23 Range/Units 18:36 18:36 18:12 WBC 10.5 (4.0-10.5) x10^3/uL RBC 2.70 L (4.1-5.6) x10^6/uL Hgb 7.6 L (12.5-18.0) g/dL Hct 25.2 L (42-50) % MCV 93.3 (78-100) fL MCH 28.1 (26-32) pg MCHC 30.2 L (32-36) g/dL RDW 17.1 H (11.5-14.0) % Plt Count 215 (150-450) x10^3/uL MPV 9.5 (7.5-11.0) fL Segmented Neutrophils 65 (36.-66.) % Band Neutrophils 34 H (0.0-2.0) % Lymphocytes (Manual) (24-44) % Monocytes (Manual) (0.0-12.0) % Atypical Lymphocytes 1 % Dohle Bodies 2+ Platelet Estimate NORMAL (NORMAL) RBC Morphology ABNORMAL Polychromasia 1+ Anisocytosis Puncture Site pCO2 (35-45) mmHg pO2 (75-100) mmHg Base Excess (-2.0-2.0) O2 Saturation (94-100) g/dF ABG pH (7.35-7.45) ABG HCO3 (22-28) ABG O2 Sat (Measured) (95-100) % Genaro Test A-a Gradient a/A Ratio Hemoglobin Carboxyhemoglobin (0.0-6.9) % THgb Methemoglobin (1.4-1.5) % Temperature C POC O2 Flow Rate % Sodium 137 (137-145) mmol/L Potassium 3.7 (3.5-5.1) mmol/L Chloride 105 (98-107) mmol/L Carbon Dioxide 21 L (22-30) mmol/L Anion Gap 14.5 (5-15) MEQ/L BUN 43 H (9-20) mg/dL Creatinine 0.77 (0.66-1.25) mg/dL Estimated GFR > 60.0 ML/MIN Glucose 111 H (74-106) mg/dL POC Glucometer 186 H (50 to 500) mg/dL Lactic Acid (0.4-2.0) Calcium 7.5 L (8.4-10.2) mg/dL Total Bilirubin (0.2-1.3) mg/dL AST (17-59) U/L ALT (0-50) U/L Alkaline Phosphatase (38-126) U/L Ammonia (9-30) umol/L Serum Total Protein (6.3-8.2) g/dL Albumin (3.5-5.0) g/dL Urine Color (Yellow) Urine Appearance (Clear) Urine pH (4.6-8.0) Ur Specific [place] (1.005-1.030) Urine Protein (Negative) Urine Glucose (UA) (Negative) mg/dL Urine Ketones (Negative) Urine Blood (Negative) Urine Nitrite (Negative) Urine Bilirubin (Negative) Urine Urobilinogen (0.2) mg/dL Ur Leukocyte Esterase (Negative) U Hyaline Cast (Auto) (0-2) /LPF Urine Microscopic RBC (0-5) /HPF Urine Microscopic WBC (0-5) /HPF Ur Epithelial Cells (None Seen) /HPF Urine Bacteria (None Seen) /HPF Urine Culture Reflexed (NO) Salicylates (2-20) mg/dL Urine Opiates Level (NEGATIVE) Ur Methadone (NEGATIVE) Acetaminophen (10-30) ug/ml Urine Barbiturates (NEGATIVE) Ur Phencyclidine (PCP) (NEGATIVE) Urine Amphetamine (NEGATIVE) U Benzodiazepine Level (NEGATIVE) Urine Cocaine (NEGATIVE) Urine Marijuana (THC) (NEGATIVE) Ethyl Alcohol (0-10) mg/dL ABO Group Rh Factor Antibody Screen (NEGATIVE) Crossmatch (COMPATIBLE) 03/31/23 03/31/23 03/31/23 Range/Units 18:02 17:35 17:23 WBC (4.0-10.5) x10^3/uL RBC (4.1-5.6) x10^6/uL Hgb (12.5-18.0) g/dL Hct (42-50) % MCV (78-100) fL MCH (26-32) pg MCHC (32-36) g/dL RDW (11.5-14.0) % Plt Count (150-450) x10^3/uL MPV (7.5-11.0) fL Segmented Neutrophils (36.-66.) % Band Neutrophils (0.0-2.0) % Lymphocytes (Manual) (24-44) % Monocytes (Manual) (0.0-12.0) % Atypical Lymphocytes % Dohle Bodies Platelet Estimate (NORMAL) RBC Morphology Polychromasia Anisocytosis Puncture Site RIGHT BRACHIAL pCO2 28 L (35-45) mmHg pO2 91 (75-100) mmHg Base Excess -5.5 L (-2.0-2.0) O2 Saturation 97.0 (94-100) g/dF ABG pH 7.42 (7.35-7.45) ABG HCO3 18.2 L (22-28) ABG O2 Sat (Measured) 98.9 (95-100) % Genaro Test NOT APPLICABLE A-a Gradient 131 a/A Ratio 0.41 Hemoglobin 8.0 Carboxyhemoglobin 1.1 (0.0-6.9) % THgb Methemoglobin 0.8 L (1.4-1.5) % Temperature 37.0 C POC O2 Flow Rate 36 % Sodium (137-145) mmol/L Potassium 4.0 (3.5-5.1) mmol/L Chloride (98-107) mmol/L Carbon Dioxide (22-30) mmol/L Anion Gap (5-15) MEQ/L BUN (9-20) mg/dL Creatinine (0.66-1.25) mg/dL Estimated GFR ML/MIN Glucose (74-106) mg/dL POC Glucometer 48 L* (50 to 500) mg/dL Lactic Acid 6.9 H (0.4-2.0) Calcium (8.4-10.2) mg/dL Total Bilirubin (0.2-1.3) mg/dL AST (17-59) U/L ALT (0-50) U/L Alkaline Phosphatase (38-126) U/L Ammonia (9-30) umol/L Serum Total Protein (6.3-8.2) g/dL Albumin (3.5-5.0) g/dL Urine Color (Yellow) Urine Appearance (Clear) Urine pH (4.6-8.0) Ur Specific [place] (1.005-1.030) Urine Protein (Negative) Urine Glucose (UA) (Negative) mg/dL Urine Ketones (Negative) Urine Blood (Negative) Urine Nitrite (Negative) Urine Bilirubin (Negative) Urine Urobilinogen (0.2) mg/dL Ur Leukocyte Esterase (Negative) U Hyaline Cast (Auto) (0-2) /LPF Urine Microscopic RBC (0-5) /HPF Urine Microscopic WBC (0-5) /HPF Ur Epithelial Cells (None Seen) /HPF Urine Bacteria (None Seen) /HPF Urine Culture Reflexed (NO) Salicylates (2-20) mg/dL Urine Opiates Level (NEGATIVE) Ur Methadone (NEGATIVE) Acetaminophen (10-30) ug/ml Urine Barbiturates (NEGATIVE) Ur Phencyclidine (PCP) (NEGATIVE) Urine Amphetamine (NEGATIVE) U Benzodiazepine Level (NEGATIVE) Urine Cocaine (NEGATIVE) Urine Marijuana (THC) (NEGATIVE) Ethyl Alcohol (0-10) mg/dL ABO Group Rh Factor Antibody Screen (NEGATIVE) Crossmatch COMPATIBLE (COMPATIBLE) 03/31/23 03/31/23 03/31/23 Range/Units 17:13 17:03 16:33 WBC (4.0-10.5) x10^3/uL RBC (4.1-5.6) x10^6/uL Hgb (12.5-18.0) g/dL Hct (42-50) % MCV (78-100) fL MCH (26-32) pg MCHC (32-36) g/dL RDW (11.5-14.0) % Plt Count (150-450) x10^3/uL MPV (7.5-11.0) fL Segmented Neutrophils (36.-66.) % Band Neutrophils (0.0-2.0) % Lymphocytes (Manual) (24-44) % Monocytes (Manual) (0.0-12.0) % Atypical Lymphocytes % Dohle Bodies Platelet Estimate (NORMAL) RBC Morphology Polychromasia Anisocytosis Puncture Site pCO2 (35-45) mmHg pO2 (75-100) mmHg Base Excess (-2.0-2.0) O2 Saturation (94-100) g/dF ABG pH (7.35-7.45) ABG HCO3 (22-28) ABG O2 Sat (Measured) (95-100) % Genaro Test A-a Gradient a/A Ratio Hemoglobin Carboxyhemoglobin (0.0-6.9) % THgb Methemoglobin (1.4-1.5) % Temperature C POC O2 Flow Rate % Sodium 137 (137-145) mmol/L Potassium 4.3 (3.5-5.1) mmol/L Chloride 105 (98-107) mmol/L Carbon Dioxide 18 L (22-30) mmol/L Anion Gap 17.8 H (5-15) MEQ/L BUN 44 H (9-20) mg/dL Creatinine 0.70 (0.66-1.25) mg/dL Estimated GFR > 60.0 ML/MIN Glucose 34 L* (74-106) mg/dL POC Glucometer 128 H 23 L* (50 to 500) mg/dL Lactic Acid (0.4-2.0) Calcium 7.9 L (8.4-10.2) mg/dL Total Bilirubin 1.10 (0.2-1.3) mg/dL AST 216 H (17-59) U/L ALT 83 H (0-50) U/L Alkaline Phosphatase 1032 H (38-126) U/L Ammonia (9-30) umol/L Serum Total Protein 5.6 L (6.3-8.2) g/dL Albumin 2.3 L (3.5-5.0) g/dL Urine Color (Yellow) Urine Appearance (Clear) Urine pH (4.6-8.0) Ur Specific [place] (1.005-1.030) Urine Protein (Negative) Urine Glucose (UA) (Negative) mg/dL Urine Ketones (Negative) Urine Blood (Negative) Urine Nitrite (Negative) Urine Bilirubin (Negative) Urine Urobilinogen (0.2) mg/dL Ur Leukocyte Esterase (Negative) U Hyaline Cast (Auto) (0-2) /LPF Urine Microscopic RBC (0-5) /HPF Urine Microscopic WBC (0-5) /HPF Ur Epithelial Cells (None Seen) /HPF Urine Bacteria (None Seen) /HPF Urine Culture Reflexed (NO) Salicylates (2-20) mg/dL Urine Opiates Level (NEGATIVE) Ur Methadone (NEGATIVE) Acetaminophen (10-30) ug/ml Urine Barbiturates (NEGATIVE) Ur Phencyclidine (PCP) (NEGATIVE) Urine Amphetamine (NEGATIVE) U Benzodiazepine Level (NEGATIVE) Urine Cocaine (NEGATIVE) Urine Marijuana (THC) (NEGATIVE) Ethyl Alcohol (0-10) mg/dL ABO Group Rh Factor Antibody Screen (NEGATIVE) Crossmatch (COMPATIBLE) 03/31/23 03/31/23 03/31/23 Range/Units 15:35 15:10 15:00 WBC (4.0-10.5) x10^3/uL RBC (4.1-5.6) x10^6/uL Hgb (12.5-18.0) g/dL Hct (42-50) % MCV (78-100) fL MCH (26-32) pg MCHC (32-36) g/dL RDW (11.5-14.0) % Plt Count (150-450) x10^3/uL MPV (7.5-11.0) fL Segmented Neutrophils (36.-66.) % Band Neutrophils (0.0-2.0) % Lymphocytes (Manual) (24-44) % Monocytes (Manual) (0.0-12.0) % Atypical Lymphocytes % Dohle Bodies Platelet Estimate (NORMAL) RBC Morphology Polychromasia Anisocytosis Puncture Site pCO2 (35-45) mmHg pO2 (75-100) mmHg Base Excess (-2.0-2.0) O2 Saturation (94-100) g/dF ABG pH (7.35-7.45) ABG HCO3 (22-28) ABG O2 Sat (Measured) (95-100) % Genaro Test A-a Gradient a/A Ratio Hemoglobin Carboxyhemoglobin (0.0-6.9) % THgb Methemoglobin (1.4-1.5) % Temperature C POC O2 Flow Rate % Sodium (137-145) mmol/L Potassium (3.5-5.1) mmol/L Chloride (98-107) mmol/L Carbon Dioxide (22-30) mmol/L Anion Gap (5-15) MEQ/L BUN (9-20) mg/dL Creatinine (0.66-1.25) mg/dL Estimated GFR ML/MIN Glucose (74-106) mg/dL POC Glucometer (50 to 500) mg/dL Lactic Acid (0.4-2.0) Calcium (8.4-10.2) mg/dL Total Bilirubin (0.2-1.3) mg/dL AST (17-59) U/L ALT (0-50) U/L Alkaline Phosphatase (38-126) U/L Ammonia < 9 L (9-30) umol/L Serum Total Protein (6.3-8.2) g/dL Albumin (3.5-5.0) g/dL Urine Color (Yellow) Urine Appearance (Clear) Urine pH (4.6-8.0) Ur Specific [place] (1.005-1.030) Urine Protein (Negative) Urine Glucose (UA) (Negative) mg/dL Urine Ketones (Negative) Urine Blood (Negative) Urine Nitrite (Negative) Urine Bilirubin (Negative) Urine Urobilinogen (0.2) mg/dL Ur Leukocyte Esterase (Negative) U Hyaline Cast (Auto) (0-2) /LPF Urine Microscopic RBC (0-5) /HPF Urine Microscopic WBC (0-5) /HPF Ur Epithelial Cells (None Seen) /HPF Urine Bacteria (None Seen) /HPF Urine Culture Reflexed (NO) Salicylates < 1.0 L (2-20) mg/dL Urine Opiates Level (NEGATIVE) Ur Methadone (NEGATIVE) Acetaminophen < 10 L (10-30) ug/ml Urine Barbiturates (NEGATIVE) Ur Phencyclidine (PCP) (NEGATIVE) Urine Amphetamine (NEGATIVE) U Benzodiazepine Level (NEGATIVE) Urine Cocaine (NEGATIVE) Urine Marijuana (THC) (NEGATIVE) Ethyl Alcohol < 10 (0-10) mg/dL ABO Group A Rh Factor POSITIVE Antibody Screen NEGATIVE (NEGATIVE) Crossmatch COMPATIBLE (COMPATIBLE) 03/31/23 03/31/23 03/31/23 Range/Units 15:00 14:54 14:54 WBC 3.0 L (4.0-10.5) x10^3/uL RBC 3.04 L (4.1-5.6) x10^6/uL Hgb 8.4 L (12.5-18.0) g/dL Hct 28.5 L (42-50) % MCV 93.8 (78-100) fL MCH 27.6 (26-32) pg MCHC 29.5 L (32-36) g/dL RDW 17.1 H (11.5-14.0) % Plt Count 278 (150-450) x10^3/uL MPV 9.9 (7.5-11.0) fL Segmented Neutrophils 78 H (36.-66.) % Band Neutrophils (0.0-2.0) % Lymphocytes (Manual) 10 L (24-44) % Monocytes (Manual) 12 (0.0-12.0) % Atypical Lymphocytes % Dohle Bodies Platelet Estimate (NORMAL) RBC Morphology ABNORMAL Polychromasia Anisocytosis 1+ Puncture Site pCO2 (35-45) mmHg pO2 (75-100) mmHg Base Excess (-2.0-2.0) O2 Saturation (94-100) g/dF ABG pH (7.35-7.45) ABG HCO3 (22-28) ABG O2 Sat (Measured) (95-100) % Genaro Test A-a Gradient a/A Ratio Hemoglobin Carboxyhemoglobin (0.0-6.9) % THgb Methemoglobin (1.4-1.5) % Temperature C POC O2 Flow Rate % Sodium (137-145) mmol/L Potassium (3.5-5.1) mmol/L Chloride (98-107) mmol/L Carbon Dioxide (22-30) mmol/L Anion Gap (5-15) MEQ/L BUN (9-20) mg/dL Creatinine (0.66-1.25) mg/dL Estimated GFR ML/MIN Glucose (74-106) mg/dL POC Glucometer (50 to 500) mg/dL Lactic Acid (0.4-2.0) Calcium (8.4-10.2) mg/dL Total Bilirubin (0.2-1.3) mg/dL AST (17-59) U/L ALT (0-50) U/L Alkaline Phosphatase (38-126) U/L Ammonia (9-30) umol/L Serum Total Protein (6.3-8.2) g/dL Albumin (3.5-5.0) g/dL Urine Color Dark Yellow (Yellow) Urine Appearance Turbid A (Clear) Urine pH 5.5 (4.6-8.0) Ur Specific [place] 1.010 (1.005-1.030) Urine Protein 100 A (Negative) Urine Glucose (UA) Negative (Negative) mg/dL Urine Ketones Negative (Negative) Urine Blood Large A (Negative) Urine Nitrite Negative (Negative) Urine Bilirubin Negative (Negative) Urine Urobilinogen 1.0 A (0.2) mg/dL Ur Leukocyte Esterase Large A (Negative) U Hyaline Cast (Auto) None Seen (0-2) /LPF Urine Microscopic RBC 6-10 A (0-5) /HPF Urine Microscopic WBC >100 A (0-5) /HPF Ur Epithelial Cells Few (None Seen) /HPF Urine Bacteria Many A (None Seen) /HPF Urine Culture Reflexed YES (NO) Salicylates (2-20) mg/dL Urine Opiates Level NEGATIVE (NEGATIVE) Ur Methadone NEGATIVE (NEGATIVE) Acetaminophen (10-30) ug/ml Urine Barbiturates NEGATIVE (NEGATIVE) Ur Phencyclidine (PCP) NEGATIVE (NEGATIVE) Urine Amphetamine NEGATIVE (NEGATIVE) U Benzodiazepine Level POSITIVE (NEGATIVE) Urine Cocaine NEGATIVE (NEGATIVE) Urine Marijuana (THC) NEGATIVE (NEGATIVE) Ethyl Alcohol (0-10) mg/dL ABO Group Rh Factor Antibody Screen (NEGATIVE) Crossmatch (COMPATIBLE) - Progress Progress Note: 03/31/23 17:04 Patient is septic. He does have anemia with a hemoglobin 8.4. Looking back at his past hemoglobin levels and he typically runs between 10 and 12. I think he would benefit from packed red blood cell transfusions. I feel he is dehydrated and his 8.4 hemoglobin is actually concentrated and artificially high. He is awake and alert and able to answer questions and states that he does not want to be intubated. He states that he will allow CPR only once with 1 shock if needed but no intubation or mechanical ventilation. We will type and cross for 2 units and hold on blood transfusions at this moment in time. His blood sugar was only 23 and we are providing him with D50 1 amp and we will change his fluids around to include dextrose. 03/31/23 17:45 CT scan of the head without contrast shows a nonacute senile brain. Chest x-ray shows a new left hemidiaphragm that is elevated. There is also new left base infiltrate versus atelectasis. Both of these radiographic studies were interpreted by the radiologist and I reviewed the impression. 03/31/23 18:53 This patient's medical issue is 1 of high complexity. He has multiple medical issues and the severity is high. I feel this patient would be best served at a facility that has an ICU with an grounding engineer covering. I contacted [facility] in [facility] and spoke with the emergency department doctor Dr. Wallace. He stated that in this patient they would have to declined transfer because, after I reviewed the patient history, history of present illness and physical findings vital signs and results of the laboratory work-up and the results of our management they do not have the appropriate facility to take care of this patient. We will contact in [facility]. If they decline or there is an extended wait for transfer, we will try [facility] in [facility]. 03/31/23 20:15 [facility] Hospitalist, Dr. Ramirez, called back and I reviewed the patient history, the history of present illness, the physical findings on examination and the review of results of our work-up and the results of our management. He accepts the patient in transfer. The transfer center is supposed to call us back within the hour. Counseled pt/family regarding: lab results, diagnosis, rad results Medical Desision Making - Independent Historian Additional History obtained from: Residential nurse, Production Team Manager/EMT - Diagnostic Testing Diagnostic test were ordered, analyzed, and reviewed by me: Yes Radiological Interpretation: Reviewed by me, Teleradiologist Report - Risk of complications The pt has a high risk of morbidity or mortality based on: Decision regarding hospitilization or escalation of hosp level of care - Departure Departure Disposition: Transfer Clinical Impression: Sepsis, Hypotension, Pneumonia, Anemia, Fever, Decubitus ulcer of coccyx, Quadriplegia Condition: Serious Critical Care Time: Yes Critical Care Time(excluding separately billable procedures): Critical 30-74 mins (50 minutes) Referrals: MICHELLE ESPINAL [Primary Care Provider] - Follow up/PCP as directed
[2023-03-31] MEDS ORDERED: Sodium Chloride 0.9% 1000 ML 1,000 ML IV SCH (15:00)
[2023-03-31] MEDS ORDERED: OFIRMEV IV ONE (15:06)
[2023-03-31 15:17] LABS: Hematocrit 28.5 % (42-50); Hemoglobin 8.4 g/dL (12.5-18.0); Mean Cell Volume 93.8 fL (78-100); Mean Corpuscular Hemoglobin 27.6 pg (26-32); Mean Corpuscular Hgb Concent. 29.5 g/dL (32-36); Mean Platelet Volume 9.9 fL (7.5-11.0); Platelet Count 278 x10^3/uL (150-450); Red Blood Count 3.04 x10^6/uL (4.1-5.6); Red Cell Distribution Width 17.1 % (11.5-14.0)
[2023-03-31 15:31] LABS: ACETAMINOPHEN < 10 ug/ml (10-30); ETHYL ALCOHOL < 10 mg/dL (0-10); SALICYLATE < 1.0 mg/dL (2-20)
[2023-03-31 15:47] LABS: Amphetamine,Urine NEGATIVE (NEGATIVE); Barbiturate,Urine NEGATIVE (NEGATIVE); Benzodiazepine,Urine POSITIVE (NEGATIVE); Cocaine,Urine NEGATIVE (NEGATIVE); Methadone,Urine NEGATIVE (NEGATIVE); Opiate,Urine NEGATIVE (NEGATIVE); PCP,Urine NEGATIVE (NEGATIVE); THC,Urine NEGATIVE (NEGATIVE)
[2023-03-31 15:48] LABS: ANISOCYTOSIS 1+; Lymphocytes 10 % (24-44); Monocyte 12 % (0.0-12.0); Neutrophils 78 % (36.-66.); Total Cells Counted 100
[2023-03-31 16:07] LABS: Appearance Turbid (Clear); Bacteria Many /HPF (None Seen); Bilirubin Negative (Negative); Blood Large (Negative); Glucose, Urine Negative (Negative); Ketones Negative (Negative); Leukocyte Esterase Large (Negative); Nitrite Negative (Negative); Ph 5.5 (4.6-8.0); Protein,Urine Dip 100 (Negative); WBC >100 /HPF (0-5)
[2023-03-31 16:08] LABS: ADD URINE CULTURE? YES (NO); Epithelial Cells Few /HPF (None Seen); Hyaline Casts None Seen /LPF (0-2)
[2023-03-31] MEDS ORDERED: Sodium Chloride 0.9% 1000 ML 1,000 ML IV STA (16:16)
--- NOTE | 2023-03-31 16:39 | XRAY ---
Indication: Altered mental status. Multiple contiguous axial images obtained through the head without contrast. Comparison: January 05, 2023 Again age-appropriate global atrophy and minimal periventricular degenerative micro-ischemia. No acute intracranial hemorrhage, abnormal extra-axial fluid collection, or mass effect. Fourth ventricle is midline without hydrocephalus. Bony calvarium intact. Visualized paranasal sinuses and mastoid air cells are clear. Impression: Continued nonacute senile brain.
--- NOTE | 2023-03-31 16:46 | XRAY ---
Indication: Fever. Comparison: May 14, 2021 Portable chest side bent and rotated with new left hemidiaphragm elevation and left base infiltrate/atelectasis. 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 Bony thorax demonstrates new finding old right 8/9 rib fractures and incompletely visualized cervical thoracic lumbar fusion hardware.
[2023-03-31 16:51] LABS: ALBUMIN 2.3 g/dL (3.5-5.0); ALKALINE PHOSPHATASE 1032 U/L (38-126); ANION GAP 17.8 MEQ/L (5-15); BLOOD UREA NITROGEN 44 mg/dL (9-20); CHLORIDE 105 mmol/L (98-107); Calcium 7.9 mg/dL (8.4-10.2); Carbon Dioxide 18 mmol/L (22-30); EST GLOMERULAR FILTRATION RATE > 60.0 ML/MIN; Potassium 4.3 mmol/L (3.5-5.1); SGOT/AST 216 U/L (17-59); SGPT/ALT 83 U/L (0-50); SODIUM 137 mmol/L (137-145); Total Protein 5.6 g/dL (6.3-8.2)
[2023-03-31] MEDS ORDERED: NOREPINEPHRINE 8 MG/250 ML-D5W 8 MG/250 ML PLAST..BAG IV PRN (16:54)
[2023-03-31 17:02] LABS: Glucose 34 mg/dL (74-106)
[2023-03-31] MEDS ORDERED: D50W 50 ml Abboject IV ONE ×4 (17:04→18:06)
[2023-03-31] MEDS ORDERED: Merrem 1 GM in Sodium Chloride 100ML MINI-BAG PLUS 100 ML IV ONE (17:19)
[2023-03-31] MEDS ORDERED: Sodium Chloride 100ML MINI-BAG PLUS 100 ML IV ONE (17:20)
[2023-03-31] MEDS ORDERED: Merrem IV ONE (17:20)
[2023-03-31 17:26] LABS: A-aADO2 131; ABG SITE RIGHT BRACHIAL; ARTERIAL BLD GAS O2 SATURATION 98.9 % (95-100); ARTERIAL BLOOD GAS BASE EXCESS -5.5 (-2.0-2.0); ARTERIAL BLOOD GAS FIO2 36 %; ARTERIAL BLOOD GAS PCO2 28 mmHg (35-45); ARTERIAL BLOOD GAS PO2 91 mmHg (75-100); ARTERIAL BLOOD GAS pH 7.42 (7.35-7.45); CARBOXYHEMOGLOBIN 1.1 % THgb (0.0-6.9); HCO3- 18.2 (22-28); Lactic Acid 6.9 (0.4-2.0); Methhemoglobin 0.8 % (1.4-1.5); paO2 pAO1 0.41
[2023-03-31] MEDS: Sodium Chloride 0.9% 1000 ML 1,000 ML IV SCH ×2 (17:28→21:32)
[2023-03-31] MEDS ORDERED: Dextrose 5%-NS IV Solution 1000 ML 1,000 ML IV SCH (17:30)
[2023-03-31 18:38] LABS: Hematocrit 25.2 % (42-50); Hemoglobin 7.6 g/dL (12.5-18.0); Mean Cell Volume 93.3 fL (78-100); Mean Corpuscular Hemoglobin 28.1 pg (26-32); Mean Corpuscular Hgb Concent. 30.2 g/dL (32-36); Mean Platelet Volume 9.5 fL (7.5-11.0); Platelet Count 215 x10^3/uL (150-450); Red Cell Distribution Width 17.1 % (11.5-14.0); White Blood Count 10.5 x10^3/uL (4.0-10.5)
[2023-03-31 18:51] LABS: ANION GAP 14.5 MEQ/L (5-15); BLOOD UREA NITROGEN 43 mg/dL (9-20); CHLORIDE 105 mmol/L (98-107); Calcium 7.5 mg/dL (8.4-10.2); Carbon Dioxide 21 mmol/L (22-30); Creatinine 1 0.77 mg/dL (0.66-1.25); EST GLOMERULAR FILTRATION RATE > 60.0 ML/MIN; Glucose 111 mg/dL (74-106); Potassium 3.7 mmol/L (3.5-5.1); SODIUM 137 mmol/L (137-145)
[2023-03-31 19:17] LABS: ABO TYPING A; Antibody Screen NEGATIVE (NEGATIVE); RH TYPING POSITIVE
[2023-03-31 19:19] LABS: CROSS MATCH (PRBC) COMPATIBLE (COMPATIBLE)
[2023-03-31 19:34] LABS: ATYPICAL LYMPHS 1 %; BAND 34 % (0.0-2.0); Neutrophils 65 % (36.-66.); Total Cells Counted 100
[2023-03-31 19:36] LABS: Platelet Estimate NORMAL (NORMAL); Polychromasia 1+
[2023-03-31 19:37] LABS: Dohle Bodies 2+
[2023-03-31 22:59] VITALS: O2SAT 97
[2023-03-31 23:01] VITALS: BP 98/52; PULSE 108
== END 2023-03-31 23:05 | disposition short-term general hospital (02) ==
LOC: ED 14:39
DX: A41.9 Sepsis, unspecified organism (principal); J18.9 Pneumonia, unspecified organism; I95.9 Hypotension, unspecified; D64.9 Anemia, unspecified; R50.9 Fever, unspecified; L89.159 Pressure ulcer of sacral region, unspecified stage; R53.2 Functional quadriplegia; R41.82 Altered mental status, unspecified; E78.5 Hyperlipidemia, unspecified; I10 Essential (primary) hypertension; Z79.01 Long term (current) use of anticoagulants; Z79.899 Other long term (current) drug therapy; Z79.891 Long term (current) use of opiate analgesic; Z72.0 Tobacco use
CPT/HCPCS: 36000; 36415; 36600; 51702; 70450; 71045; 80048; 80053; 80143; 80179; 80307; 81001; 82077; 82140; 82375; 82803; 82947; 83605; 85025; 86850; 86900; 86901; 86922; 87040; 87077; 87086; 87186; 93005; 93041; 94760; 96374; 96375; 96376; 99285; 99291